=== PATIENT | female | born 1950 | race Caucasian/White ===

== ENCOUNTER 2018-02-05 08:40 | Inpatient (IN) | payer OTHER ==
[~2018-02-05] VITALS: Ht 170.2 cm; Wt 64.0 kg
[~2018-02-05 08:40] MED LIST: CALC-354 PO; CHOL100027 PO; FSMD/70 PO; LEVO75TA25 PO; MULT-839 PO; MULTTAB58 PO; POLYSOL OPB; PRED1SUS3 OPR
[2018-02-05] MEDS ORDERED: SODIUM CHLORIDE 0.9% 1000ML 1,000 ML IV ONE (09:05)
[2018-02-05] MEDS ORDERED: MYCO500T4 PO (09:27)
[2018-02-05] MEDS ORDERED: DOXY100C76 PO (09:27)
[2018-02-05] MEDS ORDERED: BENZ100C84 PO (09:27)
[2018-02-05] MEDS ORDERED: GUAISYP4 PO (09:27)
[2018-02-05] MEDS ORDERED: SODIUM CHLORIDE 0.9% 1000ML 1,000 ML IV STA (09:42)
[2018-02-05] MEDS ORDERED: PIPERACILLIN/TAZOBACTAM 4.5 GM/100ML D5W IV STA (09:43)
[2018-02-05 09:45] LABS: HEMATOCRIT 33.7 % (37-47); HEMOGLOBIN 11.8 g/dL (12.0-16.0); MEAN CELL VOLUME 91.1 fL (80-100); MEAN CORPUSCULAR HEMOGLOBIN 31.9 pg (25-34); MEAN PLATELET VOLUME 10.2 fL (7.4-10.4); PLATELET COUNT 129 K/uL (130-400); RED CELL DISTRIBUTION WIDTH CV 12.7 % (11.5-14.5); RED CELL DISTRIBUTION WIDTH SD 42.5 fL (36.4-46.3); WHITE BLOOD COUNT 5.67 K/uL (4.8-10.8)
[2018-02-05 09:51] LABS: PTT PATIENT 26.4 SECONDS (21.0-31.0)
[2018-02-05 09:55] LABS: INFLUENZA B ANTIGEN Neg for Influ B (NEG)
--- NOTE | 2018-02-05 09:55 | DIAGNOSTIC IMAGING REPORT ---
CHEST ONE VIEW PORTABLE CLINICAL HISTORY: 67 years-old Female presenting with Sepsis, flu like symptoms, SOB, body aches. TECHNIQUE: Portable upright AP view of the chest was obtained. COMPARISON: 04/02/2013 and chest CTA from 2015. FINDINGS: Cardiomediastinal silhouette normal. No focal opacity. No large effusion or pneumothorax. Osseous structures normal. Upper abdomen normal. IMPRESSION: 1. No acute cardiopulmonary disease. Electronically signed by: Enoc Dubose M.D. 02/05/2018 9:54 AM Dictated Date/Time: 02/05/2018 9:52 AM
[2018-02-05 10:06] LABS: IG# 0.02 K/uL (0.00-0.02); LYMPH % 16.2 %; LYMPH ABS # 0.92 K/uL (1.2-3.4); MONO % 6.7 %; MONO ABS # 0.38 K/uL (0.11-0.59); NEUT % 76.7 %; NEUT ABS # 4.35 K/uL (1.4-6.5)
[2018-02-05 10:12] LABS: ALBUMIN 3.4 gm/dl (3.4-5.0); CALCIUM 8.2 mg/dl (8.5-10.1); CREATININE 0.81 mg/dl (0.60-1.20); POTASSIUM 3.1 mmol/L (3.5-5.1)
[2018-02-05 10:14] LABS: TOTAL PROTEIN 8.1 gm/dl (6.4-8.2)
[2018-02-05] MEDS ORDERED: ACETAMINOPHEN 500 MG TAB PO STA (11:16)
[2018-02-05] MEDS ORDERED: POTASSIUM CHLORIDE 10 MEQ TABCR PO STA (11:23)
--- NOTE | 2018-02-05 11:27 | EMERGENCY ROOM VISIT NOTE ---
ED Visit Note First contact with patient: 08:53 I have seen and examined this patient with Pola Loredo and generally agree with the treatment plan as discussed. Problem List Medical Problems: (1) Lupus Status: Chronic Current/Historical Medications Scheduled Alendronate/Cholecalciferol (Fosamax+D 70MG/2800 Iu), 1 TABLET PO WK Benzonatate (Tessalon Perles), 1 CAP PO TID Calcium Carbonate-Cholecalcife (Caltrate 600+D), 1 TAB PO QPM Cholecalciferol (Vitamin D 1000 Unit), 1,000 INTER.UNIT PO QPM Doxycycline Monohydrate (Monodox), 100 MG PO BID Multiple Vitamin (Multivitamin), 1 TAB PO QPM Multiple Vitamins W/ Minerals (Vision Formula/Lutein), 1 TAB PO QPM Mycophenolate Mofetil (Cellcept), 1 TAB PO BID Polyvinyl Alcohol-Povidone (Op (Refresh), 1 DROP OPB QID Scheduled PRN Guaifenesin/Codeine (Robitussin-Ac Syrup), 5 ML PO Q6H PRN for Cough Allergies Coded Allergies: Cyclobenzaprine (Verified Allergy, Mild, red and itchy, 07/25/16) Aspirin (Verified Allergy, Unknown, RASH, 07/25/16) Vital Signs Date Time Temp Pulse Resp B/P (MAP) Pulse Ox O2 Delivery O2 Flow Rate FiO2 02/05/18 11:06 70 16 115/77 100 Room Air 02/05/18 09:40 73 18 117/72 100 Room Air 02/05/18 09:19 96 Room Air 02/05/18 09:18 70 02/05/18 08:47 37.6 89 18 86/60 92 Room Air Laboratory Results 02/05/18 09:24 Red Blood Count 3.70, Mean Corpuscular Volume 91.1, Mean Corpuscular Hemoglobin 31.9, Mean Corpuscular Hemoglobin Concent 35.0, Mean Platelet Volume 10.2, Neutrophils (%) (Auto) 76.7, Lymphocytes (%) (Auto) 16.2, Monocytes (%) (Auto) 6.7, Eosinophils (%) (Auto) 0.0, Basophils (%) (Auto) 0.0, Neutrophils # (Auto) 4.35, Lymphocytes # (Auto) 0.92, Monocytes # (Auto) 0.38, Eosinophils # (Auto) 0.00, Basophils # (Auto) 0.00 02/05/18 09:24 Test 02/05/18 00:00 02/05/18 09:15 02/05/18 09:24 02/05/18 09:30 Urine Color DK YELLOW Urine Appearance CLEAR (CLEAR) Urine pH 6.5 (4.5-7.5) Urine Specific [place] 1.022 (1.000-1.030) Urine Protein 1+ (NEG) Urine Glucose (UA) NEG (NEG) Urine Ketones NEG (NEG) Urine Occult Blood NEG (NEG) Urine Nitrite NEG (NEG) Urine Bilirubin NEG (NEG) Urine Urobilinogen NEG (NEG) Urine Leukocyte Esterase NEG (NEG) Urine WBC (Auto) 1-5 /hpf (0-5) Urine RBC (Auto) 5-10 /hpf (0-4) Urine Hyaline Casts (Auto) 1-5 /lpf (0-5) Urine Epithelial Cells (Auto) 20-30 /lpf (0-5) Urine Bacteria (Auto) NEG (NEG) Influenza Type A Antigen Neg for Influ A (NEG) Influenza Type B Antigen Neg for Influ B (NEG) White Blood Count 5.67 K/uL (4.8-10.8) Red Blood Count 3.70 M/uL (4.2-5.4) Hemoglobin 11.8 g/dL (12.0-16.0) Hematocrit 33.7 % (37-47) Mean Corpuscular Volume 91.1 fL (80-100) Mean Corpuscular Hemoglobin 31.9 pg (25-34) Mean Corpuscular Hemoglobin Concent 35.0 g/dl (32-36) Platelet Count 129 K/uL (130-400) Mean Platelet Volume 10.2 fL (7.4-10.4) Neutrophils (%) (Auto) 76.7 % Lymphocytes (%) (Auto) 16.2 % Monocytes (%) (Auto) 6.7 % Eosinophils (%) (Auto) 0.0 % Basophils (%) (Auto) 0.0 % Neutrophils # (Auto) 4.35 K/uL (1.4-6.5) Lymphocytes # (Auto) 0.92 K/uL (1.2-3.4) Monocytes # (Auto) 0.38 K/uL (0.11-0.59) Eosinophils # (Auto) 0.00 K/uL (0-0.5) Basophils # (Auto) 0.00 K/uL (0-0.2) RDW Standard Deviation 42.5 fL (36.4-46.3) RDW Coefficient of Variation 12.7 % (11.5-14.5) Immature Granulocyte % (Auto) 0.4 % Immature Granulocyte # (Auto) 0.02 K/uL (0.00-0.02) Prothrombin Time 10.7 SECONDS (9.0-12.0) Prothromb Time International Ratio 1.0 (0.9-1.1) Activated Partial Thromboplast Time 26.4 SECONDS (21.0-31.0) Partial Thromboplastin Ratio 1.0 Anion Gap 6.0 mmol/L (3-11) Est Creatinine Clear Calc Drug Dose 65.6 ml/min Estimated GFR () 87.1 Estimated GFR (Non- 75.2 BUN/Creatinine Ratio 12.7 (10-20) Calcium Level 8.2 mg/dl (8.5-10.1) Total Bilirubin 0.7 mg/dl (0.2-1) Aspartate Amino Transf (AST/SGOT) 27 U/L (15-37) Alanine Aminotransferase (ALT/SGPT) 22 U/L (12-78) Alkaline Phosphatase 67 U/L (45-117) Total Protein 8.1 gm/dl (6.4-8.2) Albumin 3.4 gm/dl (3.4-5.0) Globulin 4.7 gm/dl (2.5-4.0) Albumin/Globulin Ratio 0.7 (0.9-2) Bedside Lactic Acid Venous 1.34 mmol/L (0.90-1.70) Test 02/05/18 11:23 Medications Administered Medications (Trade) Dose Ordered Sig/Jaguar Route Start Time Stop Time Status Last Admin Dose Admin Sodium Chloride 1,000 ml @ 999 mls/hr Q1H1M ONCE IV 02/05/18 09:05 02/05/18 10:05 DC 02/05/18 09:39 999 MLS/HR Sodium Chloride 1,000 ml @ 999 mls/hr Q1H1M STAT IV 02/05/18 09:42 02/05/18 10:42 DC 02/05/18 10:32 999 MLS/HR Piperacillin Sod/ Tazobactam Sod (Zosyn Iv) 4.5 gm NOW STAT IV 02/05/18 09:43 02/05/18 09:47 DC 02/05/18 10:32 4.5 GM Acetaminophen (Tylenol Tab) 500 mg NOW STAT PO 02/05/18 11:16 02/05/18 11:18 DC 02/05/18 11:25 500 MG Departure Information Referrals Shoaib Stallings III, M.D. (PCP) Patient Instructions [facility]
[2018-02-05] MEDS ORDERED: ONDANSETRON INJ 2 MG/ML 2 ML VIAL IV PRN (11:45)
[2018-02-05] MEDS ORDERED: ACETAMINOPHEN 325 MG TAB PO PRN (11:45)
[2018-02-05] MEDS: SODIUM CHLORIDE 0.9% 1000ML 1,000 ML IV SCH (11:45)
[2018-02-05] MEDS ORDERED: MULT-160 PO (11:49)
[2018-02-05] MEDS ORDERED: TRAZ50TA35 PO (11:49)
[2018-02-05] MEDS ORDERED: B-CO1CAP3 PO (11:49)
[2018-02-05] MEDS ORDERED: MULT-190 PO (11:49)
[2018-02-05] MEDS ORDERED: BENZONATATE 100MG CAP PO PRN (12:00)
[2018-02-05] MEDS ORDERED: GUAIFENESIN/CODEINE 100MG/10MG 5ML UDC PO PRN (12:00)
[2018-02-05] MEDS ORDERED: PIPERACILL/TAZOBAC CONSULT ACTIVE PRN (12:09)
[2018-02-05] MEDS ORDERED: IV FLUIDS COMPLETED PRN ×2 (12:15→15:15)
[2018-02-05 12:25] VITALS: O2SAT 100; Ht 170.2 cm; Wt 64.0 kg
--- NOTE | 2018-02-05 13:07 | History and Physical ---
History & Physical Date & Time of Service: February 05, 2018 ~ 11:15 Chief Complaint: Upper respiratory symptoms Primary Care Physician: Shoaib Stallings III, M.D. History of Present Illness 67-year-old female who presents the ED with persistent upper respiratory infection symptoms. Patient reports she initially started getting sick on January 26 while she was on a cruise in [place]. Patient started self-medicating with amoxicillin 500 mg 3 times daily. Patient was seen at urgent care in [place] last . She was given a prescription for Tessalon Perles, cough medicine, and inhaler, and also doxycycline. However she was told to not take the doxycycline unless she started to worsen. Patient was seen on Monday at the [facility] weekend clinic. Influenza was suspected and patient was started on Tamiflu however outpatient influenza testing was negative. Patient received a call yesterday to stop the Tamiflu and to start doxycycline. Patient reports she was starting to feel better yesterday however this morning her symptoms started worsen. She reports a persistent cough that has been productive for green sputum. She has been running low-grade fevers. She has felt generally weak and has had generalized body aches. She reports some mild lightheadedness and dizziness with standing but denies any syncopal events. She reports a headache that she describes as a sinus headache. She denies chest pain shortness of breath. She developed diarrhea yesterday. She had vomiting today after severe episode of coughing. She denies of lymph rectum , dark tarry stools, hematemesis, or coffee-ground emesis. She has had a poor appetite however it started to improve yesterday. She denies any urinary symptoms. In the ED, patient has a low-grade fever at 37.6. Initial BP was 86/ 60 which improved with IVF. There is no leukocytosis, lactic acid is normal. Patient was given IV Zosyn. Past Medical/Surgical History Medical Problems: (1) Lupus Status: Chronic (2) Osteoporosis Status: Chronic Surgical Problems: (1) History of appendectomy Status: Chronic (2) Hx of tonsillectomy Status: Chronic Family History FH: CAD (coronary artery disease) FATHER FH: diabetes mellitus MOTHER Social History Smoking Status: Former Smoker Alcohol Use: occasionally Marital Status: Immunizations History of Influenza Vaccine: Yes Influenza Vaccine Date: Jul 10, 2017 History of Tetanus Vaccine?: Yes Tetanus Immunization Date: Jan 05, 2010 History of Pneumococcal: Yes Pneumococcal Date: Dec 11, 2015 Allergies Coded Allergies: Cyclobenzaprine (Verified Allergy, Mild, red and itchy, 07/25/16) Aspirin (Verified Allergy, Unknown, RASH, 07/25/16) Home Medications Scheduled Alendronate/Cholecalciferol (Fosamax+D 70MG/2800 Iu), 1 TABLET PO WK Amoxicillin & Pot Clavulanate (Augmentin 875-125 mg), 1 TAB PO BID B-Complex Vitamins (B Complex), 1 CAP PO DAILY Calcium Carbonate-Cholecalcife (Caltrate 600+D), 1 TAB PO QPM Cholecalciferol (Vitamin D 1000 Unit), 2,000 INTER.UNIT PO QPM Multiple Vitamins W/ Calcium (One-A-Day Womens Formula), 1 TAB PO DAILY Ocuvite Preservision (Ocuvite Preservision), 1 TAB PO DAILY Scheduled PRN Benzonatate (Tessalon Perles), 1 CAP PO TID PRN for Cough Guaifenesin/Codeine (Robitussin-Ac Syrup), 5 ML PO Q6H PRN for Cough Polyvinyl Alcohol-Povidone (Op (Refresh), 1 DROP OPB QID PRN for DRYNESS Trazodone Hcl (Trazodone), 50 MG PO HS PRN for Insomnia Review of Systems ROS per HPI, all other systems reviewed and negative Physical Exam Vital Signs Date Time Temp Pulse Resp B/P (MAP) Pulse Ox O2 Delivery O2 Flow Rate FiO2 02/05/18 12:27 73 02/05/18 12:25 100 Room Air 02/05/18 11:06 70 16 115/77 100 Room Air 02/05/18 09:40 73 18 117/72 100 Room Air 02/05/18 09:19 96 Room Air 02/05/18 09:18 70 02/05/18 08:47 37.6 89 18 86/60 92 Room Air General Appearance: WD/WN, no apparent distress, + pertinent finding (Ill- appearing) Head: normocephalic, atraumatic Eyes: normal inspection, EOMI, sclerae normal ENT: hearing grossly normal, + pertinent finding (Mucous membranes moist) Neck: supple, no JVD, trachea midline Respiratory/Chest: lungs clear, normal breath sounds, no respiratory distress Cardiovascular: regular rate, rhythm, no edema, normal peripheral pulses Abdomen/GI: normal bowel sounds, non tender, soft, no organomegaly Extremities/Musculoskelatal: normal inspection, no calf tenderness, normal capillary refill Neurologic/Psych: no motor/sensory deficits, alert, normal mood/affect, oriented x 3 Skin: normal color, warm/dry Diagnostics Laboratory Results Results Past 24 Hours Test 02/05/18 00:00 02/05/18 09:15 02/05/18 09:24 02/05/18 09:30 Range/Units Urine Color DK YELLOW Urine Appearance CLEAR CLEAR Urine pH 6.5 4.5-7.5 Urine Specific [place] 1.022 1.000-1.030 Urine Protein 1+ NEG Urine Glucose (UA) NEG NEG Urine Ketones NEG NEG Urine Occult Blood NEG NEG Urine Nitrite NEG NEG Urine Bilirubin NEG NEG Urine Urobilinogen NEG NEG Urine Leukocyte Esterase NEG NEG Urine WBC (Auto) 1-5 0-5 /hpf Urine RBC (Auto) 5-10 0-4 /hpf Urine Hyaline Casts (Auto) 1-5 0-5 /lpf Urine Epithelial Cells (Auto) 20-30 0-5 /lpf Urine Bacteria (Auto) NEG NEG Influenza Type A Antigen Neg for Influ A NEG Influenza Type B Antigen Neg for Influ B NEG White Blood Count 5.67 4.8-10.8 K/uL Red Blood Count 3.70 4.2-5.4 M/uL Hemoglobin 11.8 12.0-16.0 g/dL Hematocrit 33.7 37-47 % Mean Corpuscular Volume 91.1 80-100 fL Mean Corpuscular Hemoglobin 31.9 25-34 pg Mean Corpuscular Hemoglobin Concent 35.0 32-36 g/dl Platelet Count 129 130-400 K/uL Mean Platelet Volume 10.2 7.4-10.4 fL Neutrophils (%) (Auto) 76.7 % Lymphocytes (%) (Auto) 16.2 % Monocytes (%) (Auto) 6.7 % Eosinophils (%) (Auto) 0.0 % Basophils (%) (Auto) 0.0 % Neutrophils # (Auto) 4.35 1.4-6.5 K/uL Lymphocytes # (Auto) 0.92 1.2-3.4 K/uL Monocytes # (Auto) 0.38 0.11-0.59 K/uL Eosinophils # (Auto) 0.00 0-0.5 K/uL Basophils # (Auto) 0.00 0-0.2 K/uL RDW Standard Deviation 42.5 36.4-46.3 fL RDW Coefficient of Variation 12.7 11.5-14.5 % Immature Granulocyte % (Auto) 0.4 % Immature Granulocyte # (Auto) 0.02 0.00-0.02 K/uL Prothrombin Time 10.7 9.0-12.0 SECONDS Prothromb Time International Ratio 1.0 0.9-1.1 Activated Partial Thromboplast Time 26.4 21.0-31.0 SECONDS Partial Thromboplastin Ratio 1.0 Sodium Level 134 136-145 mmol/L Potassium Level 3.1 3.5-5.1 mmol/L Chloride Level 104 98-107 mmol/L Carbon Dioxide Level 24 21-32 mmol/L Anion Gap 6.0 3-11 mmol/L Blood Urea Nitrogen 10 7-18 mg/dl Creatinine 0.81 0.60-1.20 mg/dl Est Creatinine Clear Calc Drug Dose 65.6 ml/min Estimated GFR () 87.1 Estimated GFR (Non- 75.2 BUN/Creatinine Ratio 12.7 10-20 Random Glucose 115 70-99 mg/dl Calcium Level 8.2 8.5-10.1 mg/dl Magnesium Level 1.8 1.8-2.4 mg/dl Total Bilirubin 0.7 0.2-1 mg/dl Aspartate Amino Transf (AST/SGOT) 27 15-37 U/L Alanine Aminotransferase (ALT/SGPT) 22 12-78 U/L Alkaline Phosphatase 67 45-117 U/L Total Protein 8.1 6.4-8.2 gm/dl Albumin 3.4 3.4-5.0 gm/dl Globulin 4.7 2.5-4.0 gm/dl Albumin/Globulin Ratio 0.7 0.9-2 Bedside Lactic Acid Venous 1.34 0.90-1.70 mmol/L Microbiology Results 02/05/18 Blood Culture, Received Pending 02/05/18 Blood Culture, Received Pending Diagnostic Radiology CXR IMPRESSION: 1. No acute cardiopulmonary disease. Impression Assessment and Plan UPPER RESPIRATORY INFECTION SYMPTOMS IMMUNOCOMPROMISED STATE -Admit to [facility] -Patient presenting with persistent/worsening URI type symptoms 10 days; as an outpatient patient self medicated with amoxicillin and was placed on doxycycline yesterday -Also was started on Tamiflu 3 days ago, however outpatient influenza testing was negative so therefore it was stopped -In the ED, patient with low-grade fever and hypotension that improved with IVF ; suspect hypotension was due to hypovolemia -WBC 5.6K (patient's baseline WBC is around 2.5K, on CellCept), no tachycardia, lactic acid within normal limits -Chest x-ray clear, urinalysis does not suggest infection -Will check CT sinuses to further evaluate for sinusitis -Possible viral URI, however given patient's duration of symptoms and immunocompromise state will cover with antibiotics -S/P Zosyn in the ED, will continue with for now; check MRSA nasal swab -Blood and sputum cultures -Continue supportive care with IVF and as needed antipyretics -Hold CellCept LUPUS -Holding CellCept as above DVT PROPHYLAXIS -SQ Lovenox DISPOSITION -In my clinical judgment this beneficiary meets acute admission criteria, established by [facility], that includes being hospitalized through two midnights. ATTENDING ADDENDUM: Patient seen and examined care coordinated with Shirley RUSSELL This is a 67-year-old female with history of lupus suppression therapy with CellCept Had recent travel outside, and left upper respiratory symptoms, diarrhea Presented to ER with fever, weakness, increased fatigue Ordered empiric antibiotic with IV Zosyn can be changed to appropriate p.o. antibiotics once cultures are available CT of sinuses ordered: Patient's been complaining of chronic sinus pressure, frontal headache posterior nasal drip Carmen Montenegro MD Advanced Directives Existing Living Will: No Existing Power of Insurance Customer Service Specialist: No Resuscitation Status VTE Prophylaxis Will order VTE Prophylaxis: Yes
--- NOTE | 2018-02-05 13:25 | DIAGNOSTIC IMAGING REPORT ---
SINUSES-MAXILLOFACIAL W/O CLINICAL HISTORY: 67 years-old Female presenting with Sinusitis. TECHNIQUE: Multidetector CT of the sinuses was performed without the use of intravenous contrast. IV contrast: None. A dose lowering technique was used consistent with the principles of ALARA (as low as reasonably achievable). COMPARISON: None. CT DOSE (mGy.cm): The estimated cumulative dose is 452.04 mGy.cm. FINDINGS: Blogs Manager topogram: Unremarkable. Significant mucosal thickening, aerated secretions, an air-fluid levels in all the paranasal sinuses. No osseous erosion or sclerosis. Ostiomeatal units are obstructed. Blaine cells noted bilaterally. No gross bony dehiscence of the carotid siphons or optic canals. Minimal rightward deviation of the bony nasal septum. Mastoid air cells and middle ears clear. Orbits normal. Mild degenerative changes of the upper cervical spine. Limited intracranial evaluation within normal limits. Superficial soft tissues of the face within normal limits. IMPRESSION: 1. Findings consistent with extensive acute sinusitis of the paranasal sinuses. No findings to suggest chronic sinusitis. 2. Blaine cells noted bilaterally. Electronically signed by: Enoc Dubose M.D. 02/05/2018 1:23 PM Dictated Date/Time: 02/05/2018 1:20 PM
[2018-02-05 13:54] VITALS: BP 120/71; PULSE 68; TEMP 37; O2SAT 99
[2018-02-05 14:41] VITALS: BP 111/71; PULSE 65; TEMP 36.7; O2SAT 100
[2018-02-05] MEDS: PIPERACILL/TAZOBAC IV 3.375 GM in D5W 100ML IV SCH ×2 (16:24→23:44)
--- NOTE | 2018-02-05 17:28 | EMERGENCY ROOM VISIT NOTE ---
History First contact with patient: 08:53 Chief Complaint: FLU LIKE SX Stated Complaint: URI History of Present Illness The patient is a 67 year old female who presents to the Emergency Room via private vehicle with complaints of "cough, sinus congestion, body ache, upset stomach". The patient states that she was on a cruise, and on January 26 she began with a cough. She notes that nearly everyone that was around her on a cruise ship had similar symptoms. She then began with a sinus congestion and a headache. She has a history of lupus and has a low white blood cell count at baseline. She is on CellCept. She stopped taking this on Monday. She took amoxicillin and doxycycline. She states that she had a chest x-ray Monday and it was negative. She began doxycycline yesterday. She notes that she has now nauseous. She has had diarrhea and intermittent fever. Review of Systems A complete 10-point Review of Systems was discussed with the patient, with pertinent positives and negatives listed in the History of Present Illness. All remaining Review of Systems questions can be considered negative unless otherwise specified. Past Medical/Surgical History Medical Problems: (1) Lupus (2) Osteoporosis Surgical Problems: (1) History of appendectomy (2) Hx of tonsillectomy Family History FH: CAD (coronary artery disease) FATHER FH: diabetes mellitus MOTHER Social History Smoking Status: Former Smoker Marital Status: Housing Status: lives with family Current/Historical Medications Scheduled Alendronate/Cholecalciferol (Fosamax+D 70MG/2800 Iu), 1 TABLET PO WK B-Complex Vitamins (B Complex), 1 CAP PO DAILY Calcium Carbonate-Cholecalcife (Caltrate 600+D), 1 TAB PO QPM Cholecalciferol (Vitamin D 1000 Unit), 2,000 INTER.UNIT PO QPM Doxycycline Monohydrate (Monodox), 100 MG PO BID Multiple Vitamins W/ Calcium (One-A-Day Womens Formula), 1 TAB PO DAILY Mycophenolate Mofetil (Cellcept), 1 TAB PO BID Ocuvite Preservision (Ocuvite Preservision), 1 TAB PO DAILY Scheduled PRN Benzonatate (Tessalon Perles), 1 CAP PO TID PRN for Cough Guaifenesin/Codeine (Robitussin-Ac Syrup), 5 ML PO Q6H PRN for Cough Polyvinyl Alcohol-Povidone (Op (Refresh), 1 DROP OPB QID PRN for DRYNESS Trazodone Hcl (Trazodone), 50 MG PO HS PRN for Insomnia Physical Exam Vital Signs Date Time Temp Pulse Resp B/P (MAP) Pulse Ox O2 Delivery O2 Flow Rate FiO2 02/05/18 12:27 73 02/05/18 12:25 100 Room Air 02/05/18 11:06 70 16 115/77 100 Room Air 02/05/18 09:40 73 18 117/72 100 Room Air 02/05/18 09:19 96 Room Air 02/05/18 09:18 70 02/05/18 08:47 37.6 89 18 86/60 92 Room Air Physical Exam VITAL SIGNS - Vital signs and nursing notes were reviewed. Hypotensive and borderline febrile. GENERAL -67-year-old female appearing her stated age who is in no acute distress. Communicates well with provider and answers questions appropriately. SKIN - Without rashes. No meningeal or petechial rash. HEAD - NC/AT. EYES - Sclera anicteric. EARS - No deformities of external structures noted on gross examination bilaterally. External auditory canals without discharge or otorrhea. Tympanic membranes pearly lópez without retraction or bulging. No fluid or purulent material visualized behind the TM. Handle of malleus, umbo, cone of light, pars tensa/flaccid all easily visualized. NOSE - Midline and without cyanosis. No epistaxis or purulent drainage noted. MOUTH/OROPHARYNX - Without perioral cyanosis. Buccal mucosa pink and moist and without leukoplakia. Tongue midline with equal elevation of palate bilaterally. No tonsillar hypertrophy, erythema, or exudates noted. Fair dentition noted. NECK - Neck with FROM. Supple to palpation. No lymphadenopathy noted. No nuchal rigidity. LUNGS - Chest wall symmetric without accessory muscle use, intercostals retractions, or central cyanosis. Normal vesicular breath sounds CTA B/L. No wheezes, rales, or rhonchi appreciated. CARDIAC - RRR with S1/S2. No murmur, rubs, or gallops appreciated. EXTREMITIES - +5/5 strength noted in UE/LE bilaterally. NEUROLOGIC - Cranial nerves II through XII grossly intact. Sensory intact to light touch throughout. PSYCH - A&Ox3 and cooperates fully with examiner. Pt is very pleasant and interacts well with examiner. Medical Decision & Procedures ER Provider Diagnostic Interpretation: CHEST ONE VIEW PORTABLE CLINICAL HISTORY: 67 years-old Female presenting with Sepsis, flu like symptoms, SOB, body aches. TECHNIQUE: Portable upright AP view of the chest was obtained. COMPARISON: 04/02/2013 and chest CTA from 2015. FINDINGS: Cardiomediastinal silhouette normal. No focal opacity. No large effusion or pneumothorax. Osseous structures normal. Upper abdomen normal. IMPRESSION: 1. No acute cardiopulmonary disease. Electronically signed by: Enoc Dubose M.D. 02/05/2018 9:54 AM Dictated Date/Time: 02/05/2018 9:52 AM Laboratory Results 02/05/18 09:24 Red Blood Count 3.70, Mean Corpuscular Volume 91.1, Mean Corpuscular Hemoglobin 31.9, Mean Corpuscular Hemoglobin Concent 35.0, Mean Platelet Volume 10.2, Neutrophils (%) (Auto) 76.7, Lymphocytes (%) (Auto) 16.2, Monocytes (%) (Auto) 6.7, Eosinophils (%) (Auto) 0.0, Basophils (%) (Auto) 0.0, Neutrophils # (Auto) 4.35, Lymphocytes # (Auto) 0.92, Monocytes # (Auto) 0.38, Eosinophils # (Auto) 0.00, Basophils # (Auto) 0.00 02/05/18 09:24 Test 02/05/18 00:00 02/05/18 09:15 02/05/18 09:24 02/05/18 09:30 Urine Color DK YELLOW Urine Appearance CLEAR (CLEAR) Urine pH 6.5 (4.5-7.5) Urine Specific [place] 1.022 (1.000-1.030) Urine Protein 1+ (NEG) Urine Glucose (UA) NEG (NEG) Urine Ketones NEG (NEG) Urine Occult Blood NEG (NEG) Urine Nitrite NEG (NEG) Urine Bilirubin NEG (NEG) Urine Urobilinogen NEG (NEG) Urine Leukocyte Esterase NEG (NEG) Urine WBC (Auto) 1-5 /hpf (0-5) Urine RBC (Auto) 5-10 /hpf (0-4) Urine Hyaline Casts (Auto) 1-5 /lpf (0-5) Urine Epithelial Cells (Auto) 20-30 /lpf (0-5) Urine Bacteria (Auto) NEG (NEG) Influenza Type A Antigen Neg for Influ A (NEG) Influenza Type B Antigen Neg for Influ B (NEG) White Blood Count 5.67 K/uL (4.8-10.8) Red Blood Count 3.70 M/uL (4.2-5.4) Hemoglobin 11.8 g/dL (12.0-16.0) Hematocrit 33.7 % (37-47) Mean Corpuscular Volume 91.1 fL (80-100) Mean Corpuscular Hemoglobin 31.9 pg (25-34) Mean Corpuscular Hemoglobin Concent 35.0 g/dl (32-36) Platelet Count 129 K/uL (130-400) Mean Platelet Volume 10.2 fL (7.4-10.4) Neutrophils (%) (Auto) 76.7 % Lymphocytes (%) (Auto) 16.2 % Monocytes (%) (Auto) 6.7 % Eosinophils (%) (Auto) 0.0 % Basophils (%) (Auto) 0.0 % Neutrophils # (Auto) 4.35 K/uL (1.4-6.5) Lymphocytes # (Auto) 0.92 K/uL (1.2-3.4) Monocytes # (Auto) 0.38 K/uL (0.11-0.59) Eosinophils # (Auto) 0.00 K/uL (0-0.5) Basophils # (Auto) 0.00 K/uL (0-0.2) RDW Standard Deviation 42.5 fL (36.4-46.3) RDW Coefficient of Variation 12.7 % (11.5-14.5) Immature Granulocyte % (Auto) 0.4 % Immature Granulocyte # (Auto) 0.02 K/uL (0.00-0.02) Prothrombin Time 10.7 SECONDS (9.0-12.0) Prothromb Time International Ratio 1.0 (0.9-1.1) Activated Partial Thromboplast Time 26.4 SECONDS (21.0-31.0) Partial Thromboplastin Ratio 1.0 Anion Gap 6.0 mmol/L (3-11) Est Creatinine Clear Calc Drug Dose 65.6 ml/min Estimated GFR () 87.1 Estimated GFR (Non- 75.2 BUN/Creatinine Ratio 12.7 (10-20) Calcium Level 8.2 mg/dl (8.5-10.1) Magnesium Level 1.8 mg/dl (1.8-2.4) Total Bilirubin 0.7 mg/dl (0.2-1) Aspartate Amino Transf (AST/SGOT) 27 U/L (15-37) Alanine Aminotransferase (ALT/SGPT) 22 U/L (12-78) Alkaline Phosphatase 67 U/L (45-117) Total Protein 8.1 gm/dl (6.4-8.2) Albumin 3.4 gm/dl (3.4-5.0) Globulin 4.7 gm/dl (2.5-4.0) Albumin/Globulin Ratio 0.7 (0.9-2) Bedside Lactic Acid Venous 1.34 mmol/L (0.90-1.70) Date/Time Source Procedure Growth Status 02/05/18 00:00 Nasal MRSA DNA Surveillance Screen - Final Specimen Negative for MRSA by DNA Probe Complete Medications Administered Medications (Trade) Dose Ordered Sig/Jaguar Route Start Time Stop Time Status Last Admin Dose Admin Sodium Chloride 1,000 ml @ 999 mls/hr Q1H1M ONCE IV 02/05/18 09:05 02/05/18 10:05 DC 02/05/18 09:39 999 MLS/HR Sodium Chloride 1,000 ml @ 999 mls/hr Q1H1M STAT IV 02/05/18 09:42 02/05/18 10:42 DC 02/05/18 10:32 999 MLS/HR Piperacillin Sod/ Tazobactam Sod (Zosyn Iv) 4.5 gm NOW STAT IV 02/05/18 09:43 02/05/18 09:47 DC 02/05/18 10:32 4.5 GM Acetaminophen (Tylenol Tab) 500 mg NOW STAT PO 02/05/18 11:16 02/05/18 11:18 DC 02/05/18 11:25 500 MG Potassium Chloride (Klor-Con M10) 40 meq NOW STAT PO 02/05/18 11:23 02/05/18 11:29 DC 02/05/18 12:24 40 MEQ Sodium Chloride 1,000 ml @ 80 mls/hr [id number] IV 02/05/18 11:45 03/07/18 11:44 02/05/18 11:45 80 MLS/HR Medical Decision Patient was seen and evaluated as above in room B6. Review was performed of nursing notes and vital signs. After obtaining a thorough history and physical examination the above work up was performed. She presents to us today with flulike symptoms. She has borderline febrile, and is hypotensive on arrival. She is not toxic but does appear to be ill. She is considered potentially immunocompromised given her medication and history. Chest x-ray negative. Urine negative. CBC reveals no concerning leukocytosis. There is anemia with hemoglobin of 11.8. Coags negative. Metabolic panel does reveal hypokalemia and hyponatremia as well as hypocalcemia. Lactic is negative. Urine negative for infection and influenza also negative. She was given Zosyn and fluids. Due to her underlying history as well as her presentation do believe that further evaluation and management in the inpatient setting is warranted. I discussed the case with Shirley castañeda, hospitalist. Please refer to for the documentation regarding her stay. Blood pressure found to be low. Medication list reviewed. In the evaluation and treatment of this patient the following differential diagnoses were entertained: Sepsis, sinusitis, meningitis, UTI, pneumonia, influenza, among others. Impression Primary Impression: Upper respiratory infection Additional Impressions: Hypokalemia Anemia Departure Information Dispostion Admitted as an inpatient Condition FAIR Referrals Shoaib Stallings III, M.D. (PCP) Forms HOME CARE DOCUMENTATION FORM, IMPORTANT VISIT INFORMATION Patient Instructions [facility] Problem Qualifiers
[2018-02-05] MEDS ORDERED: KETOROLAC TROMETHAMINE 15 MG/ML VIAL IV. PRN (19:30)
[2018-02-05] MEDS ORDERED: LORAZEPAM 0.5 MG TAB PO PRN (19:30)
[2018-02-05] MEDS ORDERED: TRAZODONE HCL 50 MG TAB PO PRN (19:30)
[2018-02-05] MEDS ORDERED: KETOROLAC TROMETHAMINE 15 MG/ML VIAL IV. ONE (19:45)
[2018-02-05] MEDS ORDERED: CALCIUM 600MG + VIT D 400 IU TAB PO SCH (21:00)
[2018-02-05] MEDS ORDERED: CHOLECALCIFEROL 1000 INTER.UNIT TAB PO SCH (21:00)
[2018-02-05] MEDS ORDERED: ENOXAPARIN 40 MG/0.4 ML SYR SQ SCH (21:00)
[2018-02-05 23:23] VITALS: BP 131/75; PULSE 66; TEMP 36.9; O2SAT 92
[2018-02-06] MEDS: SODIUM CHLORIDE 0.9% 1000ML 1,000 ML IV SCH ×2 (02:18→12:29)
[2018-02-06 06:58] VITALS: BP 152/81; PULSE 69; TEMP 36.5; O2SAT 98
[2018-02-06] MEDS: PIPERACILL/TAZOBAC IV 3.375 GM in D5W 100ML IV SCH (07:47)
[2018-02-06 07:52] LABS: HEMATOCRIT 28.2 % (37-47); HEMOGLOBIN 9.8 g/dL (12.0-16.0); MEAN CELL VOLUME 91.9 fL (80-100); MEAN CORPUSCULAR HEMOGLOBIN 31.9 pg (25-34); MEAN CORPUSCULAR HGB CONC 34.8 g/dl (32-36); MEAN PLATELET VOLUME 10.1 fL (7.4-10.4); PLATELET COUNT 113 K/uL (130-400); RED CELL DISTRIBUTION WIDTH CV 12.9 % (11.5-14.5); RED CELL DISTRIBUTION WIDTH SD 43.5 fL (36.4-46.3); WHITE BLOOD COUNT 2.19 K/uL (4.8-10.8)
[2018-02-06] MEDS ORDERED: VITAMIN B COMPLEX TAB PO SCH (08:00)
[2018-02-06] MEDS ORDERED: MULTIPLE VITAMINS PO SCH (08:00)
[2018-02-06] MEDS ORDERED: CALCIUM PO SCH (08:00)
[2018-02-06] MEDS ORDERED: [UNRECOGNIZED DRUG - OTHER] PO SCH (08:00)
[2018-02-06] MEDS ORDERED: CEROVITE ADV FORMULA TAB PO SCH (08:00)
[2018-02-06 08:28] LABS: CREATININE 0.65 mg/dl (0.60-1.20); POTASSIUM 3.6 mmol/L (3.5-5.1)
--- NOTE | 2018-02-06 10:39 | Clinical Documentation Query ---
CLINICAL DOCUMENTATION QUERY Dr. GUIDO, In your clinical opinion is this patient being managed for: ( x ) Acute sinusitis -as documented already ( ) Not Agree ( ) Other explanation of clinical findings (Please Explain. If no explanation given, this would be considered a no response.) ( ) Unable to determine ( ) Need to Discuss (Please call CDS via extension or qliq. If no interaction occurs this is considered a no response.) The medical record reflects the following clinical findings, treatment, and risk factors. Clinical Indicators: 67 yo female presenting with cough, sinus congestion. CT sinuses showed extensive acute sinusitis of the paranasal sinuses. No findings to suggest chronic sinusitis. Treatment: IV fluids, IV zosyn, hold cellcept, MRSA nasal swab, blood and sputum cx Risk Factors: recent community exposure, lupus on chronic cellcept Please clarify and document your clinical opinion in the progress notes and discharge summary. Terms such as "probable", "suspected", "likely", "questionable", "possible", or "still to be ruled out" are acceptable. IF IN AGREEMENT, YOU MUST DOCUMENT ABOVE DIAGNOSTIC STATEMENT IN DAILY PROGRESS NOTES AND DISCHARGE SUMMARY. This document is not part of the patient's record. Thank You, Yolanda Hawley RN [phone]
[2018-02-06 14:28] VITALS: BP 152/81; PULSE 69; TEMP 36.5; O2SAT 98
--- NOTE | 2018-02-06 14:36 | Progress Note ---
Subjective Date of Service: February 06, 2018. Subjective Pt evaluation today including: conversation w/ patient, physical exam, lab review, review of studies, review of inpatient medication list Saw/examined the patient in room 456 She states that she feels fine; and much better than admission Very eager to go home and requesting discharge No shortness of breath Problem List Medical Problems: (1) Anemia Status: Acute (2) Hypokalemia Status: Acute (3) Left leg pain Status: Acute (4) Rib pain on left side Status: Acute (5) Upper respiratory infection Status: Acute Review of Systems Constitutional: No fever, No chills ENT: + nasal symptoms, + problem reported (sinus pressure, headache) Respiratory: + cough, No sputum, No shortness of breath Cardiac: No chest pain Abdomen: No pain, No nausea, No vomiting, No diarrhea Heme: No abnormal bleeding/bruising Medications Current Inpatient Medications Medications (Trade) Dose Ordered Sig/Jaguar Route Start Time Stop Time Status Last Admin Dose Admin Enoxaparin Sodium (Lovenox Inj) 40 mg Q24H SQ 02/05/18 21:00 03/07/18 11:44 Acetaminophen (Tylenol Tab) 650 mg Q4H PRN PO 02/05/18 11:45 03/07/18 11:44 02/06/18 09:40 650 MG Ondansetron HCl (Zofran Inj) 4 mg Q6H PRN IV 02/05/18 11:45 03/07/18 11:44 Sodium Chloride 1,000 ml @ 80 mls/hr [id number] IV 02/05/18 11:45 03/07/18 11:44 02/06/18 12:29 80 MLS/HR Miscellaneous Information (Consult) 1 ea UD PRN N/A 02/05/18 12:09 03/07/18 12:08 Benzonatate (Tessalon Perles Cap) 100 mg TID PRN PO 02/05/18 12:00 03/07/18 11:59 Codeine Phosphate/ Guaifenesin (Robitussin-AC Sugar Free Syrup) 5 ml Q6H PRN PO 02/05/18 12:00 03/07/18 11:59 Miscellaneous (Iv Fluids Completed) 1 ea PRN PRN N/A 02/05/18 12:15 02/05/19 12:14 Piperacillin Sod/ Tazobactam Sod 3.375 gm/Dextrose 115 ml @ 28.75 mls/ hr Q8H IV 02/05/18 16:00 02/12/18 15:59 02/06/18 07:47 28.75 MLS/HR Miscellaneous (Iv Fluids Completed) 1 ea PRN PRN N/A 02/05/18 15:15 02/05/19 15:14 Vitamin B Complex (Vitamin B Complex) 1 tab DAILY PO 02/06/18 08:00 03/08/18 07:59 02/06/18 07:47 1 TAB Cholecalciferol (Vitamin D Tab) 2,000 inter.unit QPM PO 02/05/18 21:00 03/07/18 20:59 Multivitamins/ Minerals (Multivitamin W/ Minerals Tab) 1 tab DAILY PO 02/06/18 08:00 03/08/18 07:59 02/06/18 07:47 1 TAB Trazodone HCl (Desyrel Tab) 50 mg HS PRN PO 02/05/18 19:30 03/07/18 19:29 Calcium/Vitamin D (Caltrate Plus Tab) 1 tab QPM PO 02/05/18 21:00 03/07/18 20:59 Miscellaneous Information (Order Awaiting Action) 1 ea QS N/A 02/06/18 00:00 03/08/18 00:00 Ketorolac Tromethamine (Toradol Inj) 15 mg Q8 PRN IV. 02/05/18 19:30 02/10/18 19:29 Lorazepam (Ativan Tab) 0.5 mg Q8 PRN PO 02/05/18 19:30 03/07/18 19:29 Objective Vital Signs Date Time Temp Pulse Resp B/P (MAP) Pulse Ox O2 Delivery O2 Flow Rate FiO2 02/06/18 08:00 Room Air 02/06/18 06:58 36.5 69 18 152/81 (104) 98 Room Air 02/06/18 00:00 Room Air 02/05/18 23:23 36.9 66 20 131/75 (93) 92 Room Air 02/05/18 16:00 Room Air 02/05/18 14:41 36.7 65 20 111/71 (84) 100 Room Air Physical Exam General Appearance: no apparent distress Respiratory/Chest: lungs clear, normal breath sounds, no respiratory distress, no accessory muscle use Cardiovascular: regular rate, rhythm, no edema, no murmur Extremities: normal inspection, no pedal edema Neurologic/Psychiatric: no motor/sensory deficits, alert, normal mood/affect Laboratory Results Last 24 Hours Test 02/06/18 07:24 White Blood Count 2.19 K/uL Red Blood Count 3.07 M/uL Hemoglobin 9.8 g/dL Hematocrit 28.2 % Mean Corpuscular Volume 91.9 fL Mean Corpuscular Hemoglobin 31.9 pg Mean Corpuscular Hemoglobin Concent 34.8 g/dl RDW Standard Deviation 43.5 fL RDW Coefficient of Variation 12.9 % Platelet Count 113 K/uL Mean Platelet Volume 10.1 fL Sodium Level 141 mmol/L Potassium Level 3.6 mmol/L Chloride Level 110 mmol/L Carbon Dioxide Level 23 mmol/L Anion Gap 7.0 mmol/L Blood Urea Nitrogen 11 mg/dl Creatinine 0.65 mg/dl Est Creatinine Clear Calc Drug Dose 81.7 ml/min Estimated GFR () 106.5 Estimated GFR (Non- 91.9 BUN/Creatinine Ratio 16.9 Random Glucose 85 mg/dl Calcium Level 8.0 mg/dl Assessment and Plan This is a 67 year old female with a past medical history of lupus on long-term immunosuppressants - presents with acute sinusitis Acute Sinusitis - Sinus CT - Findings consistent with extensive acute sinusitis of the paranasal sinuses - doing well with IV Zosyn - feeling fine and improved - plan to d/c on Augmentin - will hold off on Flonase or steroid use due to immunosuppression - hold CellCept; outpatient follow-up with rheumatology, Dr. Cole - outpatient PCP follow-up Lupus - hold CellCept - outpatient rheumatology follow-up DVT ppx - Lovenox FULL CODE
[2018-02-06] MEDS ORDERED: AMOX875T PO (15:32)
--- NOTE | 2018-02-06 15:38 | Discharge Instructions ---
Discharge Instructions Date of Service February 06, 2018. Admission Reason for Admission: URI Discharge Discharge Diagnosis / Problem: Acute Sinus Infection Discharge Goals Goal(s): Decrease discomfort, Improve function, Diagnostic testing, Therapeutic intervention Activity Recommendations Activity Limitations: resume your previous activity . Instructions / Follow-Up Instructions / Follow-Up Please follow-up with Dr. Stallings on February 08 at 1:45PM * Hold CellCept for now, follow-up with Dr. Cole, rheumatology, regarding when to restart this * You will be on Augmentin (antibiotic) twice a day for the next 10 days for the sinus infection * If there is no improvement; primary care can consider Flonase or a steroid nasal spray for sinusitis Current Hospital Diet Patient's current hospital diet: Regular Diet Discharge Diet Recommended Diet: Regular Diet Pending Studies Studies pending at discharge: no Medical Emergencies . Who to Call and When: Medical Emergencies: If at any time you feel your situation is an emergency, please call 911 immediately. . Non-Emergent Contact Non-Emergency issues call your: Primary Care Provider, Specialist (rheumatology ) . . "Provider Documentation" section prepared by Kriss Ornelas. .
--- NOTE | 2018-02-06 15:43 | Discharge Summary ---
Discharge Summary Date of Service February 06, 2018. Discharge Summary Admission Date: February 05, 2018 at 12:45 Discharge Date: February 06, 2018 Discharge Disposition: Home Principal Diagnosis: Acute Sinusitis Lupus, Immunosuppression Medication Reconciliation New Medications: Amoxicillin & Pot Clavulanate (Augmentin 875-125 mg) 1 Tab Tab 1 TAB PO BID for 10 Days, #20 TAB Continued Medications: Alendronate/Cholecalciferol (Fosamax+D 70MG/2800 Iu) 70 Mg Tab 1 TABLET PO WK, TAB B-Complex Vitamins (B Complex) 1 Cap Cap 1 CAP PO DAILY Benzonatate (Tessalon Perles) 100 Mg Cap 1 CAP PO TID PRN for Cough for 10 Days, #30 CAP Calcium Carbonate-Cholecalcife (Caltrate 600+D) 1 Tab Tab 1 TAB PO QPM Cholecalciferol (Vitamin D 1000 Unit) 1,000 Unit Cap 2000 INTER.UNIT PO QPM Guaifenesin/Codeine (Robitussin-Ac Syrup) Syrp 5 ML PO Q6H PRN for Cough for 6 Days, #120 ML Multiple Vitamins W/ Calcium (One-A-Day Womens Formula) 1 Tab Tab 1 TAB PO DAILY Ocuvite Preservision (Ocuvite Preservision) 1 Tab Tab 1 TAB PO DAILY, TAB Polyvinyl Alcohol-Povidone (Op (Refresh) 1 Manjeet Manjeet 1 DROP OPB QID PRN for DRYNESS Trazodone Hcl (Trazodone) 50 Mg Tab 50 MG PO HS PRN for Insomnia, TAB Discontinued Medications: Doxycycline Monohydrate (Monodox) 100 Mg Cap 100 MG PO BID, CAP Mycophenolate Mofetil (Cellcept) 500 Mg Tab 1 TAB PO BID for 90 Days, #180 TAB 3 Refills Admission Information HPI (per Admitting provider): 67-year-old female who presents the ED with persistent upper respiratory infection symptoms. Patient reports she initially started getting sick on January 26 while she was on a cruise in [place]. Patient started self-medicating with amoxicillin 500 mg 3 times daily. Patient was seen at urgent care in [place] last . She was given a prescription for Tessalon Perles, cough medicine, and inhaler, and also doxycycline. However she was told to not take the doxycycline unless she started to worsen. Patient was seen on Monday at the [facility] weekend clinic. Influenza was suspected and patient was started on Tamiflu however outpatient influenza testing was negative. Patient received a call yesterday to stop the Tamiflu and to start doxycycline. Patient reports she was starting to feel better yesterday however this morning her symptoms started worsen. She reports a persistent cough that has been productive for green sputum. She has been running low-grade fevers. She has felt generally weak and has had generalized body aches. She reports some mild lightheadedness and dizziness with standing but denies any syncopal events. She reports a headache that she describes as a sinus headache. She denies chest pain shortness of breath. She developed diarrhea yesterday. She had vomiting today after severe episode of coughing. She denies of lymph rectum , dark tarry stools, hematemesis, or coffee-ground emesis. She has had a poor appetite however it started to improve yesterday. She denies any urinary symptoms. In the ED, patient has a low-grade fever at 37.6. Initial BP was 86/ 60 which improved with IVF. There is no leukocytosis, lactic acid is normal. Patient was given IV Zosyn. Physical Exam (per Admitting): General Appearance: WD/WN, no apparent distress, + pertinent finding (Ill- appearing) Head: normocephalic, atraumatic Eyes: normal inspection, EOMI, sclerae normal ENT: hearing grossly normal, + pertinent finding (Mucous membranes moist) Neck: supple, no JVD, trachea midline Respiratory/Chest: lungs clear, normal breath sounds, no respiratory distress Cardiovascular: regular rate, rhythm, no edema, normal peripheral pulses Abdomen/GI: normal bowel sounds, non tender, soft, no organomegaly Extremities/Musculoskelatal: normal inspection, no calf tenderness, normal capillary refill Neurologic/Psych: no motor/sensory deficits, alert, normal mood/affect, oriented x 3 Skin: normal color, warm/dry Hospital Course This is a 67 year old female with a past medical history of lupus on long-term immunosuppressants - presents with acute sinusitis Acute Sinusitis - Sinus CT - Findings consistent with extensive acute sinusitis of the paranasal sinuses - doing well with IV Zosyn - feeling fine and improved - plan to d/c on Augmentin - will hold off on Flonase or steroid use due to immunosuppression - hold CellCept; outpatient follow-up with rheumatology, Dr. Cole - outpatient PCP follow-up Lupus - hold CellCept - outpatient rheumatology follow-up DVT ppx - Lovenox FULL CODE Total time spent on discharge = 40 minutes This includes examination of the patient, discharge planning, medication reconciliation, and communication with other providers. Discharge Instructions Please follow-up with Dr. Stallings on February 08 at 1:45PM * Hold CellCept for now, follow-up with Dr. Cole, rheumatology, regarding when to restart this * You will be on Augmentin (antibiotic) twice a day for the next 10 days for the sinus infection * If there is no improvement; primary care can consider Flonase or a steroid nasal spray for sinusitis
[2018-02-06 15:58] VITALS: BP 144/79; PULSE 56; TEMP 37; O2SAT 96
== END 2018-02-06 16:25 | disposition home or self-care (01) | DRG 153 ==
LOC: C.EDB 08:42 → ENRESERV 12:07 → C.MS4W 12:45
PROVIDERS: ADMIT Hospitalist; ATTEND Internal Medicine
DX: J01.90 Acute sinusitis, unspecified (principal); M32.9 Systemic lupus erythematosus, unspecified; E87.6 Hypokalemia; D64.9 Anemia, unspecified; Z79.899 Other long term (current) drug therapy; Z88.6 Allergy status to analgesic agent; Z88.8 Allergy status to other drugs, medicaments and biological substances; Z87.891 Personal history of nicotine dependence; Z92.25 Personal history of immunosuppression therapy

== ENCOUNTER 2019-08-31 17:35 | Inpatient (IN) ==
[2019-08-31] MEDS ORDERED: ACETAMINOPHEN 1,000 MG/100 ML VIAL IV STA (18:06)
[2019-08-31] MEDS ORDERED: SODIUM CHLORIDE 0.9% 1000ML 2,000 ML IV ONE (18:06)
[2019-08-31] MEDS ORDERED: PROCHLORPERAZINE 2 ML IV ONE (18:06)
[2019-08-31] MEDS ORDERED: DEXAMETHASONE SOD PHOSPHATE 10 MG in SYRINGE 0 ML IV STA (18:09)
[2019-08-31] MEDS ORDERED: DiphenhydrAMINE HCL 50 MG/ML VIAL IV STA (18:09)
[2019-08-31] MEDS ORDERED: AMPICILLIN/SULBACTAM SOD 3,000 MG in 0.9 % SODIUM CHLORIDE 100 ML IV STA (18:10)
--- NOTE | 2019-08-31 18:24 | XRay Report ---
XR chest 1V portable CLINICAL HISTORY: Sepsis dyspnea COMPARISON STUDY: 08/24/2019 FINDINGS: Small parenchymal infiltrate left base. Chronic platelike atelectasis left base is unchange d. Lungs otherwise appear clear. The diaphragms are smooth. IMPRESSION: Small parenchymal infiltrate combined with chronic atelectasis left lung base. The above report was generated using voice recognition software. It may contain grammatical, syntax or spelling errors. Electronically signed by: Woo Ziegler M.D. 08/31/2019 6:22 PM
[2019-08-31 18:44] LABS: Hematocrit (blood only) 29.9 % (37-47); Hemoglobin 9.8 g/dL (12.0-16.0); Immature Granulocytes # (auto) 0.05 K/uL (0.00-0.02); Immature Granulocytes % (auto) 0.8 %; Lymphocytes # (auto) 0.26 K/uL (1.2-3.4); Lymphocytes % (auto) 4.3 %; Mean Corpuscular Hemoglobin 30.2 pg (25-34); Mean Corpuscular Hgb Conc 32.8 g/dL (32-36); Mean Corpuscular Volume 92.3 fL (80-100); Mean Platelet Volume 9.1 fL (7.4-10.4); Monocytes # (auto) 0.32 K/uL (0.11-0.59); Monocytes % (auto) 5.3 %; Neutrophils # (auto) 5.38 K/uL (1.4-6.5); Neutrophils % (auto) 89.6 %; Platelet Count 175 K/uL (130-400); RDW Coefficient of Variation 14.2 % (11.5-14.5); Red Blood Count 3.24 M/uL (4.2-5.4); White Blood Count 6.01 K/uL (4.8-10.8)
[2019-08-31] MEDS ORDERED: DEXAMETHASONE **PF** INJ 10 MG/ML VIAL ONE (18:55)
[2019-08-31 18:57] LABS: INR 1.1 (0.9-1.1); Partial Thromboplastin Ratio 1.1; Partial Thromboplastin Time 30.3 Seconds (21.0-31.0)
[2019-08-31 19:00] LABS: Albumin Level 2.8 gm/dl (3.4-5.0); BUN Creatinine Ratio 18.9 (10-20); Calcium 8.4 mg/dl (8.5-10.1); Est GFR (African American) 101.4; Est GFR (Non-African American) 87.5; Magnesium 1.8 mg/dl (1.8-2.4); Potassium 3.4 mmol/L (3.5-5.1)
[2019-08-31 19:13] LABS: Albumin Globulin Ratio 0.6 (0.9-2); Bilirubin,Total 0.8 mg/dl (0.2-1); Globulin 4.7 gm/dl (2.5-4.0); Phosphorus 3.1 mg/dl (2.5-4.9); Thyroid Stimulating Hormone 0.009 uIu/ml (0.300-4.500); Total Protein 7.5 gm/dl (6.4-8.2)
[2019-08-31 19:26] LABS: T4 Free Thyroxine 1.61 ng/dl (0.8-1.6)
[2019-08-31 19:44] LABS: Influenza A virus by PCR Neg for Influ A (Neg); Influenza B virus by PCR Neg for Influ B (Neg)
[2019-08-31] MEDS ORDERED: IOVERSOL 100ml IV PRN (19:50)
--- NOTE | 2019-08-31 19:57 | CT Scan Report ---
CT abd pelvis IV con only CT DOSE: 313.67 mGy.cm HISTORY: Pain. Nausea. abd pain, n/v, lupus TECHNIQUE: Multiaxial CT images of the abdomen and pelvis were performed following the use of intrave nous contrast. A dose lowering technique was utilized adhering to the principles of ALARA. COMPARISON STUDY: None. FINDINGS: Small parenchymal infiltrates left and to a lesser the right base. Mild hepatomegaly with c omponents of fatty infiltration. The kidneys enhance uniformly. No evidence for hydronephrosis. Pancr eas is unremarkable. Mild scattered multifocal regions of edematous wall change of the colon. Minimal reactive ileus. No e vidence for free air or obstruction. No evidence for abscess or collection. Bladder is midline. IMPRESSION: 1. Small bibasilar parenchymal infiltrates. 2. Mild colitis with no evidence for abscess collection or obstructive change. The above report was generated using voice recognition software. It may contain grammatical, syntax or spelling errors. Electronically signed by: Woo Ziegler M.D. 08/31/2019 7:56 PM
[2019-08-31] MEDS: POTASSIUM CHLORIDE / WTR 10 MEQ/100 ML PLCT IV SCH ×2 (20:00→22:55)
[2019-08-31 20:34] LABS: Appearance Urine Clear (Clear); Bilirubin Urine Negative (Negative); Blood Urine Negative (Negative); Color Urine Yellow; Glucose Urine UA Negative (Negative); Ketones Urine Negative (Negative); Leukocyte Esterase Urine Negative (Negative); Nitrite Urine Negative (Negative); Protein Urine Negative (Negative); Specific Gravity Urine 1.014 (1.000-1.030); Urobilinogen Urine Negative (Negative)
[2019-08-31] MEDS ORDERED: HYDROCORTISONE SOD SUCCINATE 100 MG/2 ML VIAL IV SCH (21:56)
[2019-08-31] MEDS ORDERED: ONDANSETRON INJ 2 MG/ML 2 ML VIAL IV PRN (21:56)
[2019-08-31] MEDS ORDERED: PROMETHAZINE HCL 25 MG TAB PO PRN (21:56)
[2019-08-31] MEDS ORDERED: UNASYN~CONSULT PHARMACY PRN (22:08)
[2019-08-31] MEDS ORDERED: HYDROCODONE/ACETAMINOPHEN 10/325 TAB PO PRN (22:10)
[2019-08-31] MEDS: ACETAMINOPHEN 325 MG TAB PO PRN (22:10)
[2019-08-31] MEDS: SODIUM CHLORIDE 0.9% 1000ML 1,000 ML IV SCH (22:10)
[2019-08-31] MEDS ORDERED: PANTOprazole 40 MG TAB PO PRN (22:10)
--- NOTE | 2019-08-31 22:48 | Emergency Department Note ---
Entered by Karin Longoria acting as a scribe for Morris Macdonald MD History of Present Illness General Chief complaint: Illness Stated complaint: NAUSEA, UNSTEADY, DISORIENTED, NO APPETITE Time Seen by Provider: 08/31/19 17:43 Source: patient and family () Mode of arrival: ambulatory Limitations: no limitations History of Present Illness Provider complaint: Flank pain Onset (ago): day(s) (yesterday) Location: abdomen (flank) and left Radiation: flank (right) Pain Consistency: + other (worsening) Quality: + other (pain) Associated symptoms: + cough, + headaches, + loss of appetite, + nausea/vomiting and + other (Additional symptoms: abdominal pain, dry heaves. Denies: sore throat) Treatments prior to arrival: other (Hydrocodone) The patient is a 68 year old female with a history of lupus and listeria who presents to the Emergency Room with complaints of worsening flank pain starting yesterday. The patient reports that she came to the ED a week ago for left flank pain, nausea, anxiety, and dizziness. She recalls being told that her pain was likely musculoskeletal-related. She states that her symptoms largely resolved after this visit, but she notes that her left flank pain returned yesterday and radiated to her right side today. She currently also complains of a headache, some cough, abdominal pain, slight nausea, a loss of appetite, and dry heaves en route to the ED. She denies any sore throat, in addition to any recent tick expo sure. Per , the patient recently finished taking a Z-Bharat for a sinus infection. He mentions that she has been hospitalized for a sinus infection in the past. He also reports that the patient went to her employee benefits director yesterday for a regular check-up and was given Augmentin and Hydrocodone. He notes that her employee benefits director would like to put the patient on Benlysta for her lupus because she has been on Prednisone for a while. He indicates that the patient last took Prednisone last night and did not take it this morning because she did not want to upset her stomach. He states that she did, however, take Hydrocodone for her pain today. Per , the patient has always had aches and pains from her lupus, but they have intensified since she acquired listeria in [place] this past January. Upon returning to the [place], he reports that the patient was hospitalized for 10 days in [place], followed by 5 days here. He states that she has followed up with [facility] since and had an endoscopy and colonoscopy performed. The patient notes that she has not felt great since [facility]. Home Medications Home Medications Medication Instructions Recorded Confirmed Type alendronate [Fosamax] 70 mg PO WK 08/24/19 08/31/19 History levothyroxine [Synthroid] 75 mcg PO QAM 08/24/19 08/31/19 History losartan [Cozaar] 25 mg PO HS 08/24/19 08/31/19 History omeprazole 20 mg PO DAILY PRN 08/24/19 08/31/19 History ondansetron HCl [Zofran] 4 mg PO Q6H PRN 08/24/19 08/31/19 History prednisone 20 mg PO QAM 08/24/19 08/31/19 History promethazine 12.5 mg PO Q6H PRN 08/24/19 08/31/19 History hydrocodone-acetaminophen [Lorcet 1 tab PO Q6H PRN 08/31/19 08/31/19 History (hydrocodone)] mycophenolate mofetil [CellCept] 1,000 mg PO BID 08/31/19 08/31/19 History Allergies Allergy/AdvReac Type Severity Reaction Status Date / Time cyclobenzaprine Allergy Mild red and Verified 08/31/19 18:29 itchy aspirin Allergy Unknown RASH Verified 08/31/19 18:29 Past Med/Surg History Medical History Listeria infection Lupus (Chronic) Surgical History History of appendectomy (Chronic) Social History Preferred Language: Bangladeshi Communication Ability: Effective Air Traffic Control Operator Required: No Beliefs That Will Affect Care: None marital status: Current Living Situation: Spouse current occupational status: retired Feels Safe at Home: Yes Safety Concerns: Feels Safe At This Time Smoking Status: Former smoker Hx Alcohol Use: Yes Hx Substance Use: No Review of Systems See HPI for pertinent positives & negatives. and A total of 10 systems reviewed and were otherwise negative Physical Exam Vital Signs Vital Signs - 24 hr 08/31/19 17:39 08/31/19 17:49 08/31/19 18:00 Temperature 38 C H Temperature Source Oral Pulse Rate 122 H 107 H 105 H Pulse Rate from SpO2 Sensor 107 H 104 H Pulse Rhythm Regular Pulse Strength Normal Respiratory Rate 20 16 18 Respiratory Effort / Characteristics Non-Labored Spontaneous Respiratory Depth Normal Respiratory Pattern Regular Blood Pressure 104/64 Blood Pressure [Right Arm] Blood Pressure Mean 77 Blood Pressure Mean [Right Arm] Blood Pressure Position Sitting Pulse Oximetry 95 95 95 Oxygen Delivery Method Room Air Room Air Sepsis Recent Fever Within 48 Hours Yes Sepsis Action Taken by Nursing No Action Required 08/31/19 20:00 Temperature Temperature Source Pulse Rate Pulse Rate from SpO2 Sensor Pulse Rhythm Pulse Strength Respiratory Rate 16 Respiratory Effort / Characteristics Non-Labored Spontaneous Respiratory Depth Normal Respiratory Pattern Regular Blood Pressure Blood Pressure [Right Arm] 114/65 Blood Pressure Mean Blood Pressure Mean [Right Arm] 81 Blood Pressure Position Pulse Oximetry 96 Oxygen Delivery Method Room Air Sepsis Recent Fever Within 48 Hours Sepsis Action Taken by Nursing GENERAL: Awake, alert, fatigued-appearing, uncomfortable. HENT: Normocephalic, atraumatic. Oropharynx with dry mucous membranes and otherwise unremarkable. EYES: Normal conjunctiva. Sclera non-icteric. EOMI. No nystamgus. PEARRL. NECK: Supple. No nuchal rigidity. FROM. No JVD. RESPIRATORY: CTAB. CARDIAC: Tachycardic rate, normal rhythm. Extremities warm and well perfused. Pulses equal. ABDOMEN: Soft, non-distended. No rebound or guarding. No masses. Mild epigastric discomfort without discrete tenderness. RECTAL: Deferred. MUSCULOSKELETAL: Chest examination reveals no tenderness. The back is symmet rical on inspection without obvious abnormality. There is no CVA tenderness to palpation. No joint edema. LOWER EXTREMITIES: Calves are equal size bilaterally and non-tender. No edema. No discoloration. NEURO: Normal sensorium. No sensory or motor deficits noted. Cerebellar function intact, including finger to nose, alternating palms, heel to greene. 5/5 strength and SILT x4 extremities. SKIN: No rash or jaundice noted. Course Course 1755: The patient was evaluated in room A4B, and a complete history and physical examination were performed. 1927: I checked on the patient and updated her on her results. She was agreeable to admission. 1933: I reviewed the patient's case with Dr. Anguiano- HospitalistLaura. Dr. Anguiano will evaluate the patient for further management. Consultations Consultation #1: I reviewed the patient's case with Dr. Anguiano- HospitalistLaura. Dr. Anguiano will evaluate the patient for further management. Time: 19:34 Administered Medications Acetaminophen (Tylenol) 650 mg PO Q4H PRN PRN Reason: pain/fever Stop: 09/30/19 21:55 Last Admin: 08/31/19 22:10 Dose: 650 mg Documented by: [id number] Sodium Chloride (Nss 1000ml) 1,000 mls @ 125 mls/hr IV .Q8H ROSITA Stop: 09/30/19 21:55 Last Admin: 08/31/19 22:10 Dose: 125 mls/hr Documented by: [id number] Discontinued Medications Dexamethasone Sodium Phosphate (Decadron Pf) Confirm Administered Dose 10 mg .ROUTE .STK-MED ONE Stop: 08/31/19 18:56 Last Admin: 08/31/19 19:12 Dose: 10 mg Documented by: [id number] Diphenhydramine HCl (Benadryl) 25 mg IV NOW STA Stop: 08/31/19 18:10 Last Admin: 08/31/19 18:39 Dose: 25 mg Documented by: [id number] Sodium Chloride (Nss 1000ml) 2,000 mls @ 999 mls/hr IV .Q2H1M ONE Stop: 08/31/19 20:06 Last Admin: 08/31/19 18:40 Dose: 999 mls/hr Documented by: [id number] Prochlorperazine (Compazine) 2 mls @ 1 mls/min IV ONE ONE Stop: 08/31/19 18:07 Last Admin: 08/31/19 18:39 Dose: 1 mls/min Documented by: [id number] Acetaminophen (Ofirmev) 1,000 mg in 100 mls @ 400 mls/hr IV NOW STA Stop: 08/31/19 18:20 Last Infusion: 08/31/19 18:54 Dose: 0 mls/hr Documented by: [id number] Admin: 08/31/19 18:39 Dose: 400 mls/hr Documented by: [id number] Dexamethasone Sodium Phosphate (10 mg/ Syringe) 2.5 mls @ 1 mls/min IV NOW STA Stop: 08/31/19 18:11 Last Admin: 08/31/19 19:13 Dose: Not Given Documented by: [id number] Ampicillin Sodium/Sulbactam Sodium 3,000 mg/ Sodium Chloride 108 mls @ 200 mls/hr IV NOW STA; Protocol Stop: 08/31/19 18:42 Last Infusion: 08/31/19 20:16 Dose: 0 mls/hr Documented by: [id number] Admin: 08/31/19 19:13 Dose: 200 mls/hr Documented by: [id number] Potassium Chloride (K Henry / Wtr) 10 meq in 100 mls @ 100 mls/hr IV Q1H ROSITA Stop: 08/31/19 21:14 Last Admin: 08/31/19 20:00 Dose: 100 mls/hr Documented by: [id number] Ioversol (Optiray 320 100ml) 94 ml IV ONCE PRN PRN Reason: Interaction Checking Stop: 09/04/19 19:49 Last Admin: 08/31/19 19:50 Dose: 94 ml Documented by: [id number] Critical Care Time Critical Care Time: Yes Total Critical Care Time: 35 I have personally spent greater than 35 minutes of critical care time in the direct management of this patient. This includes bedside care, interpretation of diagnostic studies, and testing, discussion with consultants, patient, and family members, and other required patient management activities. This 35 minutes is in excess of all separately billable procedures. Medical Decision Making Differential Diagnosis Differential diagnosis: Etiologies such as viral syndrome, otitis, pharyngitis, pneumonia, influenza, meningitis, urinary tract infection, sepsis, bacteremia, as well as others were entertained. Medical Records Attestation: I reviewed the patient's medical records. I reviewed portions of the patient's old chart on the electronic medical record. She has a history of lupus. The patient was evaluated here 7 days ago for the same symptoms she is presenting with today. During her last visit she complained of nausea, anxiety, dizziness, and "not feeling herself." She had a chest x-ray and head CT without contrast performed, which were both negative. She also had blood cultures performed because she is on chronic Prednisone. The patient's records indicate that she has suffered from balance issues since January. These issues reportedly started after she went to [place] and ate something that caused her to act strangely. She was subsequently diagnosed with listeria. Home Medications Current Medication List: was personally reviewed by me Laboratory Data Attestation: I reviewed the patient's lab results. Result diagrams: 08/31/19 18:32 08/31/19 18:32 Lab Results 08/31/19 08/31/19 08/31/19 Range/Units 18:32 18:32 18:32 WBC 6.01 (4.8-10.8) K/uL RBC 3.24 L (4.2-5.4) M/uL Hgb 9.8 L (12.0-16.0) g/dL Hct 29.9 L (37-47) % MCV 92.3 (80-100) fL MCH 30.2 (25-34) pg MCHC 32.8 (32-36) g/dL RDW Std Deviation 48.0 H (36.4-46.3) fL RDW Coeff of Bonnie 14.2 (11.5-14.5) % Plt Count 175 (130-400) K/uL MPV 9.1 (7.4-10.4) fL Immature Gran % (Auto) 0.8 % Neut % (Auto) 89.6 % Lymph % (Auto) 4.3 % [place] % (Auto) 5.3 % Eos % (Auto) 0.0 % Baso % (Auto) 0.0 % Immature Gran # (Auto) 0.05 H (0.00-0.02) K/uL Neut # (Auto) 5.38 (1.4-6.5) K/uL Lymph # (Auto) 0.26 L (1.2-3.4) K/uL [place] # (Auto) 0.32 (0.11-0.59) K/uL Eos # (Auto) 0.00 (0-0.5) K/uL Baso # (Auto) 0.00 (0-0.2) K/uL PT 11.0 (9.0-12.0) Seconds INR 1.1 (0.9-1.1) APTT 30.3 (21.0-31.0) Seconds PTT Ratio 1.1 Sodium 132 L (136-145) mmol/L Potassium 3.4 L (3.5-5.1) mmol/L Chloride 100 (98-107) mmol/L Carbon Dioxide 24 (21-32) mmol/L Anion Gap 8.0 (3-11) BUN 13 (7-18) mg/dl Creatinine 0.71 (0.6-1.2) mg/dl Est Cr Clr Drug Dosing 71.0 ml/min Est GFR ( Amer) 101.4 Est GFR (Non-Af Amer) 87.5 BUN/Creatinine Ratio 18.9 (10-20) Glucose 107 H (70-99) mg/dl Lactate (0.4-2.0) mmol/L Calcium 8.4 L (8.5-10.1) mg/dl Phosphorus 3.1 (2.5-4.9) mg/dl Magnesium 1.8 (1.8-2.4) mg/dl Total Bilirubin 0.8 (0.2-1) mg/dl AST 23 (15-37) U/L ALT 15 (12-78) U/L Alkaline Phosphatase 65 (45-117) U/L Total Protein 7.5 (6.4-8.2) gm/dl Albumin 2.8 L (3.4-5.0) gm/dl Globulin 4.7 H (2.5-4.0) gm/dl Albumin/Globulin Ratio 0.6 L (0.9-2) TSH 0.009 L (0.300-4.500) uIu/ml Free T4 1.61 H (0.8-1.6) ng/dl Urine Color Urine Appearance (Clear) Urine pH (4.5-7.5) Ur Specific [place] (1.000-1.030) Urine Protein (Negative) Urine Glucose (UA) (Negative) Urine Ketones (Negative) Urine Blood (Negative) Urine Nitrite (Negative) Urine Bilirubin (Negative) Urine Urobilinogen (Negative) Ur Leukocyte Esterase (Negative) Influenza Type A (PCR) (Neg) Influenza Type B (PCR) (Neg) 08/31/19 08/31/19 08/31/19 Range/Units 18:32 18:32 20:11 WBC (4.8-10.8) K/uL RBC (4.2-5.4) M/uL Hgb (12.0-16.0) g/dL Hct (37-47) % MCV (80-100) fL MCH (25-34) pg MCHC (32-36) g/dL RDW Std Deviation (36.4-46.3) fL RDW Coeff of Bonnie (11.5-14.5) % Plt Count (130-400) K/uL MPV (7.4-10.4) fL Immature Gran % (Auto) % Neut % (Auto) % Lymph % (Auto) % [place] % (Auto) % Eos % (Auto) % Baso % (Auto) % Immature Gran # (Auto) (0.00-0.02) K/uL Neut # (Auto) (1.4-6.5) K/uL Lymph # (Auto) (1.2-3.4) K/uL [place] # (Auto) (0.11-0.59) K/uL Eos # (Auto) (0-0.5) K/uL Baso # (Auto) (0-0.2) K/uL PT (9.0-12.0) Seconds INR (0.9-1.1) APTT (21.0-31.0) Seconds PTT Ratio Sodium (136-145) mmol/L Potassium (3.5-5.1) mmol/L Chloride (98-107) mmol/L Carbon Dioxide (21-32) mmol/L Anion Gap (3-11) BUN (7-18) mg/dl Creatinine (0.6-1.2) mg/dl Est Cr Clr Drug Dosing ml/min Est GFR ( Amer) Est GFR (Non-Af Amer) BUN/Creatinine Ratio (10-20) Glucose (70-99) mg/dl Lactate 0.9 (0.4-2.0) mmol/L Calcium (8.5-10.1) mg/dl Phosphorus (2.5-4.9) mg/dl Magnesium (1.8-2.4) mg/dl Total Bilirubin (0.2-1) mg/dl AST (15-37) U/L ALT (12-78) U/L Alkaline Phosphatase (45-117) U/L Total Protein (6.4-8.2) gm/dl Albumin (3.4-5.0) gm/dl Globulin (2.5-4.0) gm/dl Albumin/Globulin Ratio (0.9-2) TSH (0.300-4.500) uIu/ml Free T4 (0.8-1.6) ng/dl Urine Color Yellow Urine Appearance Clear (Clear) Urine pH 7.0 (4.5-7.5) Ur Specific [place] 1.014 (1.000-1.030) Urine Protein Negative (Negative) Urine Glucose (UA) Negative (Negative) Urine Ketones Negative (Negative) Urine Blood Negative (Negative) Urine Nitrite Negative (Negative) Urine Bilirubin Negative (Negative) Urine Urobilinogen Negative (Negative) Ur Leukocyte Esterase Negative (Negative) Influenza Type A (PCR) Neg for Influ A (Neg) Influenza Type B (PCR) Neg for Influ B (Neg) Imaging Data Radiologist's Impression: Radiology results as stated below per my review and the radiologist's interpretation: XR chest 1V portable CLINICAL HISTORY: Sepsis dyspnea COMPARISON STUDY: 08/24/2019 FINDINGS: Small parenchymal infiltrate left base. Chronic platelike atelectasis left base is unchanged. Lungs otherwise appear clear. The diaphragms are smooth. IMPRESSION: Small parenchymal infiltrate combined with chronic atelectasis left lung base. The above report was generated using voice recognition software. It may contain grammatical, syntax or spelling errors. Electronically signed by: Woo Ziegler M.D. 08/31/2019 6:[address] abd pelvis IV con only CT DOSE: 313.67 mGy.cm HISTORY: Pain. Nausea. abd pain, n/v, lupus TECHNIQUE: Multiaxial CT images of the abdomen and pelvis were performed following the use of intravenous contrast. A dose lowering technique was utilized adhering to the principles of ALARA. COMPARISON STUDY: None. FINDINGS: Small parenchymal infiltrates left and to a lesser the right base. Mild hepatomegaly with components of fatty infiltration. The kidneys enhance uniformly. No evidence for hydronephrosis. Pancreas is unremarkable. Mild scattered multifocal regions of edematous wall change of the colon. Minimal reactive ileus. No evidence for free air or obstruction. No evidence for abscess or collection. Bladder is midline. IMPRESSION: 1. Small bibasilar parenchymal infiltrates. 2. Mild colitis with no evidence for abscess collection or obstructive change. The above report was generated using voice recognition software. It may contain grammatical, syntax or spelling errors. Electronically signed by: Woo Ziegler M.D. 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 On arrival the patient is febrile to 38.0 with heart rate in the 120s-130s but vital signs otherwise stable. Patient appears clinically dry. She is neurologically intact. EKG without overt acute ischemia. Chest x-ray demonstrates left basilar infiltrate that is suspicious for pneumonia. The patient's sirs criteria on arrival blood cultures were drawn. And patient was ordered for initial treatment with Unasyn given her employee benefits director had prescribed Augmentin yesterday. WBC within normal limits. H/H9 0.8/29.9 approximate 2 prior values. Platelets within normal limits. Chemistry without acidosis. Lactate within normal limits. Potassium 3.4 and otherwise elect lites and LFTs unremarkable. TSH is 0.009 however with free T4 1.61. UA without evidence of infection. Flu negative. CT the abdomen pelvis was performed and demonstrated findings consistent with colitis without evidence of abscess. Additionally, basilar lung findings further clarified with bibasilar parenchymal infiltrates. She was feeling some improvement after IV fluid hydration, Compazine, APAP, as well as dexamethasone for possible component of adrenal insufficiency. However, given the patient's history of lupus on chronic prednisone with Sirs criteria and infectious source reasonable to admit the patient for further management. The patient is agreeable with this plan. Case was discussed with Dr. Anguiano, [facility] hospitalist, who evaluate the patient for admission. Continuous Cardiac Monitoring: Indication: Dizziness Rhythm: Sinus Tachycardia Rate: 122 Other: 95% RA Impression & Plan Pneumonia, Headache, Lupus, On prednisone therapy, Abdominal pain, Nausea, Shortness of breath, Colitis Discharge Plan Visit Data *Final* Discharge Date/Time: 08/31/19 21:16 Chief Complaint: Illness Stated Complaint: NAUSEA, UNSTEADY, DISORIENTED, NO APPETITE ED Provider: Morris Macdonald Discharge Problem: Pneumonia, Headache, Lupus, On prednisone therapy, Abdominal pain, Nausea, Shortness of breath, Colitis Patient Disposition: Admitted As Inpatient Discharge Instructions Interventions: ED Discharge Assessment Last Done: 08/31/19 21:16 Discharge Problem: Pneumonia Qualifiers: Pneumonia type: due to unspecified organism Laterality: bilateral Lung location: lower lobe of lung Qualified Code(s): J18.9 - Pneumonia, unspecified organism Headache Qualifiers: Headache type: unspecified Headache chronicity pattern: unspecified pattern Intractability: intractable Qualified Code(s): R51 - Headache Abdominal pain Qualifiers: Abdominal location: unspecified location Qualified Code(s): R10.9 - Unspecified abdominal pain The sunniibe's documentation has been prepared under my direction and personally reviewed by me in its entirety. I confirm that the note above accurately reflects all work, treatment, procedures, and medical decision making performed by me.
[2019-08-31] MEDS: LOSARTAN POTASSIUM 25 MG TAB PO SCH (22:55)
--- NOTE | 2019-08-31 23:16 | History and Physical Report ---
DATE OF ADMISSION: 08/31/2019 CHIEF COMPLAINT: Fever, weakness. HISTORY OF PRESENT ILLNESS: This is a 68-year-old female with past medical history significant for Graves' disease, chronic sinusitis, GERD, history of basal cell carcinoma, lichenoid keratosis, osteoporosis, idiopathic peripheral neuropathy, history of tobacco abuse in remission, history of lupus, currently on CellCept which she stops when she is taking antibiotics. The patient was in [place] in January, and when she came back, she was diagnosed with listeria. She was in the hospital in [facility]. She completed a total of 15 days of IV antibiotics, but since then she is not feeling well, she still has aches and pains, nausea, dry heaving. She recently was treated for sinusitis with Z-VEL, now getting better. Her speech and language tutor prescribed Augmentin, but she is not started taking it yet,.But they went to her sons place for Thanksgiving, she was not feeling good when she came home. She was more nauseous and more aches and pains, feeling sick and also had a temp spike today, so she came to the hospital, ER and she had a temperature of 38 and no leukocytosis, but chest x-ray shows left lower lobe infiltrate. She was here also on August 24 with weakness, at that time, imaging studies were unremarkable. She was given a dose of steroids with fluids and she felt better and she was discharged at that time. Currently, she received antibiotics, Unasyn and also a dose of dexamethasone. Currently, resting comfortably and hemodynamically stable. Denies any headache, no earache, no runny nose, no sore throat, no difficulty swallowing. Appetite is not that great. No chest pain, no shortness of breath. Has nausea, but no vomiting, no abdominal pain. Denies any diarrhea or constipation. Last bowel movement was yesterday and no blood in the stools or black stools. Normal bladder movements. No hematuria or burning micturition, no swelling in the legs, no rash. She has some pain in the right side of the chest and chronic pain from her lupus, some days are more, some days are less. ALLERGIES: CYCLOBENZAPRINE, ASPIRIN. PAST MEDICAL HISTORY: As mentioned above. PAST SURGICAL HISTORY: Excision of left breast lesion, colonoscopy, EGDs, Pap screen, appendectomy, tonsillectomy, treatment for tubal . MEDICATIONS: The patient is on hydrocodone/acetaminophen 5/325 mg one tablet every 6 hours p.r.n., Augmentin started yesterday 1 tablet b.i.d., Phenergan 12.5 mg p.o. q. 6 hours p.r.n., prednisone 10 mg p.o. daily, Cozaar 25 mg daily, multivitamins with minerals 1 tablet daily, Fosamax 70 mg p.o. daily, CellCept 1000 mg p.o. b.i.d., calcium plus vitamin D 1 tablet daily, levothyroxine 75 mcg daily, albuterol nebulizers p.r.n. FAMILY HISTORY: Significant for: Father had colon cancer. Mother had diabetes. Father has heart disorder. Mother has heart disorder. Sister had lupus, acoustic neuroma. SOCIAL HISTORY: , quit smoking in 1991. Alcohol, 1 wine at night. No drug use. REVIEW OF SYMPTOMS: As per HPI. Rest of review of systems is negative. PHYSICAL EXAMINATION: GENERAL: The patient is of moderate built, not in acute distress. VITAL SIGNS: Temperature 38, pulse 105, respiratory rate 16, blood pressure 114/65, oxygen 96% room air. HEENT: No pallor, no icterus. Pupils equal, round, reactive to light. NECK: No JVD, no neck masses, no carotid bruits. Oral mucosa dry. CARDIOVASCULAR: S1, S2 heard, regular rate and rhythm, no murmur, no gallop. RESPIRATORY SYSTEM: Normal AP diameter. Mild bibasilar crackles. No wheezing. ABDOMEN: Soft, bowel sounds present, nontender. No distention. CENTRAL NERVOUS SYSTEM: Cranial nerves II-XII grossly nonfocal. EXTREMITIES: No edema, no erythema. LABORATORY DATA: WBC 6.01, hemoglobin 9.8, hematocrit 29.9, platelets 175. PT 11, INR 1.1, APTT 33.3. Sodium 132, potassium 3.4, chloride 100, bicarbonate 24, BUN 13, creatinine 0.7, serum glucose 107, lactate 0.9, calcium 8.4, phosphorus 3.1, magnesium 1.8, total bilirubin 0.8, AST 23, ALT 15, alkaline phosphatase 65. TSH 0.009, free T4 1.61. Urinalysis negative. Influenza A and B PCR negative. IMAGING DATA: Chest x-ray: Small parenchymal infiltrate with chronic atelectasis, left lung base. CT of the abdomen and pelvis with IV contrast only shows small bibasilar parenchymal infiltrates, mild colitis with no evidence of abscess collection or obstructive change. ASSESSMENT AND PLAN: This is a 68-year-old female who presents with generalized weakness, illness, acute on chronic pains and also fever at home. 1. Fever. Chest x-ray shows left lower lobe infiltrate, possible pneumonia, but the patient does not have any cough or shortness of breath. The patient recently had Z-VEL, so we will empirically start on IV Unasyn. Follow the cultures. Follow the response. 2. Generalized weakness and chronic pain, history of lupus and since she was diagnosed with listeria in January of this year, she is constantly having nausea and feeling sick. We will hydrate with IV fluids and we will follow the cultures. If any concern, we will get ID consult. The patient is on immunosuppression with CellCept. 3. Mild colitis on CAT scan. When she was diagnosed with listeria in January, she also was diagnosed C. diff. The patient currently had no diarrhea, but she was recently on antibiotic courses. We will check the stool for C. diff. We will put her on probiotics and consult GI for further recommendations. 4. Hypothyroidism. TSH is low, but free T4 is normal. Recently, had thyroid dose reduced continue current dose and follow with PCP. 5. Hypertension. Continue losartan with holding parameters. 6. History of lupus. CellCept is held for infection, on prednisone 10 mg daily currently. Will place her on stress dose hydrocortisone and taper back to her home dose as soon as possible. 7. Deep venous thrombosis prophylaxis, sequential compression devices for now. 8. Disposition: Admit to medical floor. Expect discharge home and follow with family doctor. PT and OT prior to discharge. Social Service to help with discharge planning. Code status: Full code. MTDD
[2019-09-01] MEDS: AMPICILLIN/SULBACTAM SOD 3,000 MG in 0.9 % SODIUM CHLORIDE 100 ML IV SCH ×4 (01:26→20:14)
[2019-09-01] MEDS: HYDROCORTISONE SOD 50 MG in SYRINGE 0 ML IV SCH ×4 (01:27→20:14)
[2019-09-01] MEDS: LEVOTHYROXINE SODIUM 75 MCG TABLET PO SCH (05:21)
[2019-09-01] MEDS: SODIUM CHLORIDE 0.9% 1000ML 1,000 ML IV SCH ×3 (05:21→22:19)
[2019-09-01 05:34] LABS: Hematocrit (blood only) 30.7 % (37-47); Hemoglobin 9.8 g/dL (12.0-16.0); Immature Granulocytes # (auto) 0.05 K/uL (0.00-0.02); Immature Granulocytes % (auto) 1.9 %; Lymphocytes # (auto) 0.24 K/uL (1.2-3.4); Lymphocytes % (auto) 9.3 %; Mean Corpuscular Hemoglobin 29.6 pg (25-34); Mean Corpuscular Hgb Conc 31.9 g/dL (32-36); Mean Corpuscular Volume 92.7 fL (80-100); Mean Platelet Volume 9.9 fL (7.4-10.4); Monocytes # (auto) 0.12 K/uL (0.11-0.59); Monocytes % (auto) 4.6 %; Neutrophils # (auto) 2.18 K/uL (1.4-6.5); Neutrophils % (auto) 84.2 %; Platelet Count 146 K/uL (130-400); RDW Coefficient of Variation 14.4 % (11.5-14.5); RDW Standard Deviation 48.4 fL (36.4-46.3); Red Blood Count 3.31 M/uL (4.2-5.4); White Blood Count 2.59 K/uL (4.8-10.8)
[2019-09-01 06:11] LABS: BUN Creatinine Ratio 22.2 (10-20); Blood Urea Nitrogen 14 mg/dl (7-18); Calcium 8.2 mg/dl (8.5-10.1); Carbon Dioxide 22 mmol/L (21-32); Chloride 112 mmol/L (98-107); Creatinine Clr Calc Pharmacy 81.3 ml/min; Est GFR (African American) 107.4; Est GFR (Non-African American) 92.7; Glucose 159 mg/dl (70-99); Magnesium 2.2 mg/dl (1.8-2.4); Potassium 4.4 mmol/L (3.5-5.1); Sodium 140 mmol/L (136-145)
[2019-09-01 06:14] LABS: Thyroid Stimulating Hormone < 0.005 uIu/ml (0.300-4.500)
[2019-09-01] MEDS: LACTOBACILLUS ACIDOPHILUS (FLORANEX) TAB PO SCH ×3 (09:13→17:55)
[2019-09-01] MEDS ORDERED: AMPICILLIN/SULBACTAM CONSULT ACTIVE PRN (10:00)
--- NOTE | 2019-09-01 12:21 | Gastrointestinal Consultation ---
Date of Consultation September 01, 2019 Assessment & Plan (1) Colitis: likely infectious given hx cdiff Recs: supportive care, IVFs check stool culture, cdiff, fecal calprotectin diet as tolerated will likely need repeat colonoscopy as an outpatient in 6 weeks to evaluate after acute episode has resolved Thank you for allowing me to participate in the care of this patient. History of Present Illness Attending Physician: Maci Arora MD 68 yo female here with possible pneumonia. GI consulted for colitis on CT. She notes right sided abdominal pains that started yesterday, also notes hx cdiff and listeria infections in the past. Denies diarrhea, n/v, fevers, chills, constipation. No other significant GI symptoms at this time. CT A/P shows mild colitis. Labs show mild anemia hgb 9.8, CT as above, no recent EGD. She had a colonoscopy previously that appears to have been unremarkable. Allergies Allergy/AdvReac Type Severity Reaction Status Date / Time cyclobenzaprine Allergy Mild red and Verified 08/31/19 18:29 itchy aspirin Allergy Unknown RASH Verified 08/31/19 18:29 Home Medications Home Medications Medication Instructions Recorded Confirmed Type alendronate [Fosamax] 70 mg PO WK 08/24/19 08/31/19 History levothyroxine [Synthroid] 75 mcg PO QAM 08/24/19 08/31/19 History losartan [Cozaar] 25 mg PO HS 08/24/19 08/31/19 History omeprazole 20 mg PO DAILY PRN 08/24/19 08/31/19 History ondansetron HCl [Zofran] 4 mg PO Q6H PRN 08/24/19 08/31/19 History prednisone 20 mg PO QAM 08/24/19 08/31/19 History promethazine 12.5 mg PO Q6H PRN 08/24/19 08/31/19 History hydrocodone-acetaminophen [Lorcet 1 tab PO Q6H PRN 08/31/19 08/31/19 History (hydrocodone)] mycophenolate mofetil [CellCept] 1,000 mg PO BID 08/31/19 08/31/19 History Patient History Medical History Listeria infection Lupus (Chronic) Surgical History History of appendectomy (Chronic) Social History Preferred Language: [place] Citizen Communication Ability: Effective Soldering Machine Setter Required: No Beliefs That Will Affect Care: None marital status: Current Living Situation: Spouse current occupational status: retired Feels Safe at Home: Yes Safety Concerns: Feels Safe At This Time Smoking Status: Former smoker Hx Alcohol Use: Yes Hx Substance Use: No Review of Systems Constitutional: no fever, no chills and no weight loss Eyes: as per Subjective / HPI Ear, Nose, Mouth, Throat: as per Subjective / HPI Respiratory: no dyspnea and no dyspnea on exertion Cardiovascular: no chest pain and no palpitations Gastrointestinal: as per Subjective / HPI Musculoskeletal: no joint pain and no swelling Integumentary: no rash and no lesions Neurologic: no numbness and no paresthesia Psychiatric: no depression and no anxiety Endocrine: no fatigue Hematologic / Lymphatic: no easy bleeding and no easy bruising Physical Exam Constitutional: WD/WN, vitals as above Eyes: EOM intact bilaterally Neck: normal visual inspection Respiratory: normal respiratory effort, lungs clear to auscultation Cardiovascular: RRR, no murmur, no edema Gastrointestinal (Abdomen): Inspection/Auscultation: abdomen normal to inspection; abdomen not distended Percussion/Palpation: abdomen soft; abdomen nontender and no hepatosplenomegaly Musculoskeletal: Extremities: no cyanosis Gait: normal gait Skin: no rashes, warm and dry Neurologic: moves all extremities Psychiatric: A+Ox3, euthymic affect Results & Data Vital Signs (Past 12 Hours) Vital Signs Temp Pulse Resp BP Pulse Ox 09/01/19 07:29 36.4 C L 63 16 121/67 97 PG Care Time/CCT Total # of Minutes Spent Total Time Spent with Patient: Total time spent is greater than 50% in coordination of care (as documented) at patient's floor/unit and/or counseling patient:
--- NOTE | 2019-09-01 14:06 | Hospitalist Progress Note ---
Date of Service September 01, 2019 Assessment & Plan (1) Fever: (2) Hypothyroidism: (3) Hypertension: (4) Lupus: (5) Nausea: Had fever Recent sinusitis. Has been on antibiotic Right sided chest wall pain, reported to pleuritic and some tenderness. CXR and Abd CT showed bibasilar infiltrates. Abd CT also showed mild colitis Likely pneumonia Had been on azithro, augmentin recently Continue unasyn for now Nausea resolved. Advanced to regular diet Will send stool culture if BM Continue home losartan Continue levothyroxine Reports cellcept had been on hold since being treated for recent infection Resume po prednisone home dose Subjective Reports nausea has resolved. No bowel movement yet Still reports right sided pleuritic chest pain. Denied fevers, chills Last fever was in ER at 5pm yesterday Reports feeling better Denied cough, shortness of breath, sick contact Review of Systems Review of Systems: All systems reviewed and unremarkable except for mentioned above. Physical Exam Physical Exam: General: Well nourished, well hydrated, average body habitus, no acute distress Eyes: PERRL, conjunctivae normal, EOM intact bilaterally ENMT: External ear and nose normal, oropharynx normal Neck: Normal visual inspection, no tracheal deviation, no swelling noted Respiratory: Normal respiratory effort, no respiratory distress, lungs clear to auscultation, no crackles and no wheezes Cardiovascular: Pulse is RRR. Heart Sounds: normal S1 and normal S2; no murmurs. Vessels: normal peripheral pulses Extremities: no pedal edema Chest (Breasts): Chest: normal inspection of chest , reported mild tenderness on right lower lateral chest wall palpation Gastrointestinal (Abdomen): Abdomen is not distended, soft, non-tender to palpation, no guarding, no palpable hepatosplenomegaly, normal bowel sounds Musculoskeletal: No cyanosis or clubbing, all extremities motor strength 5/5 Genitourinary: No CVA tenderness Skin: No rash noted on gross inspection, No ulcers noted Neurologic: Alert and oriented x 3, No focal weakness, sensation grossly intact Psychiatric: Alert and oriented x 3, euthymic affect, no depressed affect Lymphatic: No cervical and axillary lymphadenopathy Results & Data Vital Signs (Past 12 Hours) Vital Signs Temp Pulse Resp BP Pulse Ox 09/01/19 07:29 36.4 C L 63 16 121/67 97 Laboratory Results Abnormal lab results 08/31/19 08/31/1909/01/19 Range/Units 18:32 18:32 05:04 WBC 2.59 L (4.8-10.8) K/uL RBC 3.24 L 3.31 L (4.2-5.4) M/uL Hgb 9.8 L 9.8 L (12.0-16.0) g/dL Hct 29.9 L 30.7 L (37-47) % MCHC 31.9 L (32-36) g/dL RDW Std Deviation 48.0 H 48.4 H (36.4-46.3) fL Immature Gran # (Auto) 0.05 H 0.05 H (0.00-0.02) K/uL Lymph # (Auto) 0.26 L 0.24 L (1.2-3.4) K/uL Sodium 132 L (136-145) mmol/L Potassium 3.4 L (3.5-5.1) mmol/L Chloride (98-107) mmol/L BUN/Creatinine Ratio (10-20) Glucose 107 H (70-99) mg/dl Calcium 8.4 L (8.5-10.1) mg/dl Albumin 2.8 L (3.4-5.0) gm/dl Globulin 4.7 H (2.5-4.0) gm/dl Albumin/Globulin Ratio 0.6 L (0.9-2) TSH 0.009 L (0.300-4.500) uIu/ml Free T4 1.61 H (0.8-1.6) ng/dl 09/01/19 Range/Units 05:04 WBC (4.8-10.8) K/uL RBC (4.2-5.4) M/uL Hgb (12.0-16.0) g/dL Hct (37-47) % MCHC (32-36) g/dL RDW Std Deviation (36.4-46.3) fL Immature Gran # (Auto) (0.00-0.02) K/uL Lymph # (Auto) (1.2-3.4) K/uL Sodium (136-145) mmol/L Potassium (3.5-5.1) mmol/L Chloride 112 H (98-107) mmol/L BUN/Creatinine Ratio 22.2 H (10-20) Glucose 159 H (70-99) mg/dl Calcium 8.2 L (8.5-10.1) mg/dl Albumin (3.4-5.0) gm/dl Globulin (2.5-4.0) gm/dl Albumin/Globulin Ratio (0.9-2) TSH < 0.005 L (0.300-4.500) uIu/ml Free T4 (0.8-1.6) ng/dl
[2019-09-01] MEDS: LOSARTAN POTASSIUM 25 MG TAB PO SCH (20:15)
[2019-09-01] MEDS: ACETAMINOPHEN 325 MG TAB PO PRN (22:19)
[2019-09-02] MEDS: AMPICILLIN/SULBACTAM SOD 3,000 MG in 0.9 % SODIUM CHLORIDE 100 ML IV SCH ×3 (02:22→13:28)
[2019-09-02] MEDS: ACETAMINOPHEN 325 MG TAB PO PRN (04:55)
[2019-09-02] MEDS: LEVOTHYROXINE SODIUM 75 MCG TABLET PO SCH (05:03)
[2019-09-02] MEDS: SODIUM CHLORIDE 0.9% 1000ML 1,000 ML IV SCH ×2 (05:03→12:20)
[2019-09-02 05:24] LABS: Hemoglobin 9.2 g/dL (12.0-16.0); Mean Corpuscular Hemoglobin 29.6 pg (25-34); Mean Corpuscular Hgb Conc 31.7 g/dL (32-36); Mean Corpuscular Volume 93.2 fL (80-100); Mean Platelet Volume 9.8 fL (7.4-10.4); Platelet Count 155 K/uL (130-400); RDW Coefficient of Variation 14.4 % (11.5-14.5); RDW Standard Deviation 48.8 fL (36.4-46.3); Red Blood Count 3.11 M/uL (4.2-5.4); White Blood Count 4.06 K/uL (4.8-10.8)
[2019-09-02 05:51] LABS: BUN Creatinine Ratio 15.5 (10-20); Calcium 7.7 mg/dl (8.5-10.1); Creatinine Clr Calc Pharmacy 74.1 ml/min; Est GFR (African American) 104.2; Est GFR (Non-African American) 89.9; Potassium 3.2 mmol/L (3.5-5.1)
[2019-09-02] MEDS ORDERED: predniSONE 20 MG TAB PO SCH (09:00)
[2019-09-02] MEDS ORDERED: POTASSIUM CHLORIDE 20 MEQ TABCR PO STA (09:19)
[2019-09-02] MEDS: LACTOBACILLUS ACIDOPHILUS (FLORANEX) TAB PO SCH ×3 (09:29→17:37)
--- NOTE | 2019-09-02 10:42 | Gastroenterology Progress Note ---
Date of Service September 02, 2019 Assessment & Plan (1) Colitis: Pt is a 68 y/o female admitted for abd pain, on CT abd/pelvis noted to have mild colitis + ileus. She has hx of Cdiff and Listeria. Cdiff currently negative, stool cx pending. She is feeling much better, stools are soft brown. Last EGD/Colonsocpy 04/2019 - gastritis, normal colonosocopy - F/U stool cx - No contraindication for DC home from GI standpoint - May benefit from repeat colonscopy in 4-6 week's time - Gi to sign off; pls recall prn Supervising Physician Co-Signing Physician Notes I have seen and examined the patient and discussed the management with PEPE Manrique. PE - well nourished fm in nad, HEENT - perrla, no scleral icterus, CV- rr no mrg, Pulm- ctab, Abd - soft nt nd +bs, Ext- no sharath no ct Labs reviewed Imaging reviewed Agree with further plan of care as per Carmenza's note. Radha Burt MD Subjective Pt feels much better, not as much abd pain, denies any n/v, tolerating regular food. She is desiring to go home soon Stool this AM soft, brown. Cdiff negative, Stool cx pending Review of Systems Review of Systems: All systems reviewed & are unremarkable except as noted in HPI & below Physical Exam Constitutional: WD/WN, vitals as above well groomed, cooperative and comfortable Eyes: PERRL, conjunctivae normal, anicteric sclerae ENMT: external ear and nose normal, oropharynx normal Respiratory: normal respiratory effort, lungs clear to auscultation Cardiovascular: RRR, no murmur, no edema Gastrointestinal (Abdomen): Percussion/Palpation: + abdomen tender (RUQ) and abdomen soft Skin: no rashes, warm and dry no jaundice Psychiatric: A+Ox3, euthymic affect Lymphatic: no lymphedema Results & Data Vital Signs (Past 12 Hours) Vital Signs Temp Pulse Resp BP Pulse Ox 09/02/19 07:17 36.3 C L 62 16 142/74 H 97 09/01/19 23:00 36.4 C L 70 16 143/75 H 96
[2019-09-02 15:18] VITALS: PULSE 66; TEMP 97.5; O2SAT 98
--- NOTE | 2019-09-02 17:34 | Discharge Summary ---
Date of Service September 02, 2019 Admission HPI Per Admitting Provider This is a 68-year-old female with past medical history significant for Graves' disease, chronic sinusitis, GERD, history of basal cell carcinoma, lichenoid keratosis, osteoporosis, idiopathic peripheral neuropathy, history of tobacco abuse in remission, history of lupus, currently on CellCept which she stops when she is taking antibiotics. The patient was in [facility] [address] in January, and when she came back, she was diagnosed with listeria. She was in the hospital in [facility]. She completed a total of 15 days of IV antibiotics, but since then she is not feeling well, she still has aches and pains, nausea, dry heaving. She recently was treated for sinusitis with Z-VEL, now getting better. Her steel checker prescribed Augmentin, but she is not started taking it yet,.But they went to her sons place for Thanksgiving, she was not feeling good when she came home. She was more nauseous and more aches and pains, feeling sick and also had a temp spike today, so she came to the hospital, ER and she had a temperature of 38 and no leukocytosis, but chest x-ray shows left lower lobe infiltrate. She was here also on August 24 with weakness, at that time, imaging studies were unremarkable. She was given a dose of steroids with fluids and she felt better and she was discharged at that time. Currently, she received antibiotics, Unasyn and also a dose of dexamethasone. Currently, resting comfortably and hemodynamically stable. Denies any headache, no earache, no runny nose, no sore throat, no difficulty swallowing. Appetite is not that great. No chest pain, no shortness of breath. Has nausea, but no vomiting, no abdominal pain. Denies any diarrhea or constipation. Last bowel movement was yesterday and no blood in the stools or black stools. Normal bladder movements. No hematuria or burning micturition, no swelling in the legs, no rash. She has some pain in the right side of the chest and chronic pain from her lupus, some days are more, some days are less. Admission Exam Per Admitting Provider GENERAL: The patient is of moderate built, not in acute distress. VITAL SIGNS: Temperature 38, pulse 105, respiratory rate 16, blood pressure 114/65, oxygen 96% room air. HEENT: No pallor, no icterus. Pupils equal, round, reactive to light. NECK: No JVD, no neck masses, no carotid bruits. Oral mucosa dry. CARDIOVASCULAR: S1, S2 heard, regular rate and rhythm, no murmur, no gallop. RESPIRATORY SYSTEM: Normal AP diameter. Mild bibasilar crackles. No wheezing. ABDOMEN: Soft, bowel sounds present, nontender. No distention. CENTRAL NERVOUS SYSTEM: Cranial nerves II-XII grossly nonfocal. EXTREMITIES: No edema, no erythema. Principal Diagnosis Community Acquired Pneumonia Pleuritic chest pain Discharge Exam General: Well nourished, well hydrated, average body habitus, no acute distress Eyes: PERRL, conjunctivae normal, EOM intact bilaterally ENMT: External ear and nose normal, oropharynx normal Neck: Normal visual inspection, no tracheal deviation, no swelling noted Respiratory: Normal respiratory effort, no respiratory distress, lungs clear to auscultation, no crackles and no wheezes Cardiovascular: Pulse is RRR. Heart Sounds: normal S1 and normal S2; no murm urs. Vessels: normal peripheral pulses Extremities: no pedal edema Gastrointestinal (Abdomen): Abdomen is not distended, soft, non-tender to palpation, no guarding, no palpable hepatosplenomegaly, normal bowel sounds Musculoskeletal: No cyanosis or clubbing, all extremities motor strength 5/5 Genitourinary: No CVA tenderness Skin: No rash noted on gross inspection, No ulcers noted Neurologic: Alert and oriented x 3, No focal weakness, sensation grossly intact Discharge Data Allergies Allergy/AdvReac Type Severity Reaction Status Date / Time cyclobenzaprine Allergy Mild red and Verified 08/31/19 18:29 itchy aspirin Allergy Unknown RASH Verified 08/31/19 18:29 Consultations 08/31/19 19:26 ED Decision to Admit Stat 08/31/19 21:56 Consult Case Management - Discharge Planning Routine 09/01/19 08:00 Consult Gastroenterology Routine Ordered Studies 08/31/19 18:10 CT abd pelvis IV con only Stat 1.Small bibasilar parenchymal infiltrates. 2. Mild colitis with no evidence for abscess collection or obstructive change. Hospital Course (1) Pneumonia: (2) Fever: (3) Hypothyroidism: (4) Hypertension: (5) Lupus: (6) Nausea: Had fever Recent sinusitis. Has been on antibiotic Right sided chest wall pain, reported to pleuritic and some tenderness. CXR and Abd CT showed bibasilar infiltrates. Abd CT also showed mild colitis Likely pneumonia Had been on azithro, augmentin recently Treated in the hospital with unasyn Discharge on levofloxacin for another 2 days to complete therapy Nausea resolved. Chest pain improved Continue home losartan for hypertension Continue levothyroxine for hypothyroidism Reports cellcept had been on hold since being treated for recent infection Resume po prednisone home dose Total Time Total Time Spent Total Time Spent (In Minutes): 25 Total Time Includes: Examination of the Patient, Discharge Planning and Medication Reconciliation Discharge Plan Discharge Items Patient Disposition: Home - Self-Care Reason For Visit: ILLNESS Discharge Diagnosis: Pneumonia Mild colitis Condition on Discharge: Good Activity: Resume your previous activity Non-emergency contact: Primary Care Provider Call non-emergency contact if: you have any medication questions and your symptoms worsen Follow-up/Referrals: Shoaib Stallings MD [Primary Care Provider] - Diet: Heart Healthy Addtl Attending Provider Instructions: Mrs Kumari You came to the hospital complaining of feeling ill, right sided chest pain on deep breaths and nausea. You were evaluated and found to have pneumonia and mild colitis You were treated with antibiotics and iv fluids. Your symptoms resolved. Please complete antibiotic therapy for the pneumonia. Please follow up with your Primary Doctor and Apprenticeship Consultant. It was a pleasure taking care of you. Pending Studies at Discharge: No Stand-Alone Forms: [facility], Smoking Cessation Medications and DC Order Prescriptions: New acetaminophen [Mapap (acetaminophen)] 325 mg Tablet 650 mg PO Q6H PRN (Reason: pain) Qty: 30 RF: 0 levofloxacin 750 mg tablet 750 mg PO DAILY 2 Days Qty: 2 RF: 0 Continued hydrocodone-acetaminophen [Lorcet (hydrocodone)] 5-325 mg tablet 1 tab PO Q6H PRN (Reason: Pain) RF: 0 mycophenolate mofetil [CellCept] 500 mg Tablet 1,000 mg PO BID RF: 0 alendronate [Fosamax] 70 mg Tablet 70 mg PO WK RF: 0 levothyroxine [Synthroid] 75 mcg Tablet 75 mcg PO QAM RF: 0 losartan [Cozaar] 25 mg Tablet 25 mg PO HS RF: 0 omeprazole 20 mg Capsule,Delayed Release(Dr/Ec) 20 mg PO DAILY PRN (Reason: Heartburn) RF: 0 prednisone 20 mg Tablet 20 mg PO QAM RF: 0 promethazine 12.5 mg Tablet 12.5 mg PO Q6H PRN (Reason: nausea/vomiting) RF: 0 ondansetron HCl [Zofran] 4 mg Tablet 4 mg PO Q6H PRN (Reason: nausea/vomiting) RF: 0 Discharge Orders: Discharge Order (Routine); Ordered 09/02/19 Ordered By: Maci Nelson/Other Patient Handouts: Levofloxacin Oral tablet Admission Data Admit Date/Time: 08/31/19 20:30 Attending Provider: Maci Arora I. Admit Provider: Bharat Anguiano Primary Care Provider: Shoaib Stallings Other Providers: Bharat Anguiano ; Bess Leon ; Celina Garcia ; Girish Fontanez ; Siobhan Vega ; Pankaj Montanez ; Nishi Carrillo ; Kimberly Solo ; Adilene Nino ; Junior Rojas ; Bryan Lewis ; Caroline Salgado ; Neeru Tong ; Adilene Rico ; Radha Burt ; Suzie Hartley Other Interventions: Discharge Summary Assessment (RN) Last Done: 09/02/19 18:07 DC Date/Time DO NOT enter until pt leaves facility: 09/02/19 20:02
[2019-09-02 18:11] VITALS: BP 130/73
--- NOTE | 2019-09-09 07:31 | Coding Query ---
CODING QUERY To promote full compliance with coding requirements relating to patient care, provider participation is requested in all cases of keypunch operator uncertainty. Please assist us with the question(s) below: Coding Question(s): Dr. Arora, Please clarify the type of lupus this patient has: ( ) Anticoagulant (LAC) ( ) Discoid (local) ( ) Erythematosus (discoid) (local) ( ) Exedens ( ) Hydralazine ( ) Nephritis (chronic) ( ) Nontuberculous, not disseminated ( ) Panniculitis ( ) Pernio (Besnier) ( x ) Systemic (SLE) ( ) Tuberculous ( ) Vulgaris Physician's Response(s): Per review of Primary Provider's records, patient has systemic lupus erythematosus Thank you for your time, PATRICK Lopez, [employer] SHELBYD
== END 2019-09-02 20:02 | disposition home or self-care (01) | DRG 194 ==
LOC: ED 17:35 → 3N 20:30

== ENCOUNTER 2019-11-15 12:24 | Inpatient (IN) ==
--- OUTSIDE RECORDS SUMMARY | 2019-11-15 12:27 | External Medical Summary | Continuity of Care Document ---
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 Refills: 0 predniSONE 10 MG Oral Tablet; take 1.5 tablets daily , M.D. Start: 07-Jan-2019 Refills: 0 Mucinex DM Maximum Strength 60-1200 MG O ral Tablet Extended Release 12 Hour; TAKE 1 TABLET EVERY 12 HOURS NEEDED. , M.D. Start: 019 Refills: 0 Levothyroxine Sodium 75 MCG Oral Tablet; 75 mcg daily on empty stomach. No food for atleast 30 minutes after. Ishmael Leon Start: 23-Jul-2018 Quantity: 30 Refills: 11 Vision Vitamins Oral Tablet; TAKE 1 TABLET DAILY. , M.DLinwood Start: 23-Jul-2018 Refills: 0 CellCept 500 MG Oral Tablet; TAKE 2 TABLET Twice daily , M.D . Start: 23-Jul-2018 Refills: 0 Multi-Vitamin Daily Oral Tablet; TAKE 1 TABLET DAILY. , M.D. Refills: 0 Vitamin D 1000 UNIT TABS; TAKE 1 TABLET DAILY. , M.D. Refills: 0 Procedures History of Breast Surgery Lumpectomy Sta tus: Completed History of Appendectomy Status: Complete d History of Tonsillectomy Status: Complet ed History of Wrist Surgery Status: Complet ed History of Laparoscopy With Excision Of Ectopic Status: Completed Immunizations Immunizations not documented Family History Father Family history of malignant neoplasm (V16.9) (Z80.9) Status: Active Mother Family history of diabetes mellitus (V18.0) (Z83.3) Status: Active Social History - Smoking Status Former smoker Plan of Treatment Planned Observations Planned Goals not documented Results No Known Results Results not documented Encounters Appointment; Jeannette Leon M.D. 07-Jan-2019 12:50 Encounter Diagnosis: Problem not documented Appointment; Jeannette Leon M.D. 23-Jul-2018 8:30 Encounter Diagnosis: Problem not documented
[2019-11-15] MEDS ORDERED: ONDANSETRON INJ 2 MG/ML 2 ML VIAL IV STA (13:01)
[2019-11-15] MEDS ORDERED: MoRPHine SULFATE 4 MG/ML 1 ML CARP\\VIAL IV STA (13:01)
[2019-11-15] MEDS ORDERED: SODIUM CHLORIDE 0.9% 500 ML IV SCH (13:15)
[2019-11-15 13:17] LABS: Eosinophils # (auto) 0.01 K/uL (0-0.5); Eosinophils % (auto) 0.2 %; Hemoglobin 11.7 g/dL (12.0-16.0); Immature Granulocytes # (auto) 0.04 K/uL (0.00-0.02); Lymphocytes # (auto) 0.39 K/uL (1.2-3.4); Lymphocytes % (auto) 9.5 %; Mean Corpuscular Hemoglobin 29.4 pg (25-34); Mean Corpuscular Hgb Conc 32.5 g/dL (32-36); Mean Corpuscular Volume 90.5 fL (80-100); Mean Platelet Volume 9.7 fL (7.4-10.4); Monocytes # (auto) 0.28 K/uL (0.11-0.59); Monocytes % (auto) 6.8 %; Neutrophils % (auto) 82.5 %; Platelet Count 163 K/uL (130-400); RDW Coefficient of Variation 14.1 % (11.5-14.5); RDW Standard Deviation 46.8 fL (36.4-46.3); Red Blood Count 3.98 M/uL (4.2-5.4); White Blood Count 4.12 K/uL (4.8-10.8)
[2019-11-15 13:30] LABS: Prothrombin Time 10.3 Seconds (9.0-12.0)
--- NOTE | 2019-11-15 13:32 | CT Scan Report ---
CT head/brain wo con CLINICAL HISTORY: 69 years-old Female presenting with dizzy eval for stroke. TECHNIQUE: Multidetector CT imaging of the head was performed without the use of intravenous contrast . IV contrast: None. One or more dose lowering techniques were used consistent with the principles of ALARA (as low as reasonably achievable), including automatic exposure control, mA or kV adjustment t o individual patient size, and/or use of iterative reconstruction. COMPARISON: 08/24/2019. CT DOSE (mGy.cm): The estimated cumulative dose is 537.48 mGy.cm. FINDINGS: Bathhouse Keeper topogram: Unremarkable. Ventricles and sulci normal in size. No hemorrhage. Brain parenchyma normal in appearance with preser cristiane lópez-white differentiation. No acute territorial infarct. No mass effect or midline shift. No ext ra-axial fluid collection. Paranasal sinuses and mastoid air cells clear. Calvarium intact. IMPRESSION: 1. No acute intracranial abnormality. ACT 112: Negative or not required by law. Electronically signed by: Enoc Dubose M.D. 11/15/2019 1:30 PM
[2019-11-15 13:33] LABS: Albumin Level 3.4 gm/dl (3.4-5.0); BUN Creatinine Ratio 20.8 (10-20); Calcium 9.3 mg/dl (8.5-10.1); Creatinine Clr Calc Pharmacy 75.6 ml/min; Est GFR (African American) 103.9; Est GFR (Non-African American) 89.7; Potassium 3.9 mmol/L (3.5-5.1)
[2019-11-15 13:36] LABS: Albumin Globulin Ratio 0.7 (0.9-2); Bilirubin,Total 0.5 mg/dl (0.2-1); Globulin 4.7 gm/dl (2.5-4.0); Total Protein 8.1 gm/dl (6.4-8.2)
[2019-11-15 13:39] LABS: Lipase 251 U/L (73-393); Troponin I < 0.015 ng/ml (0-0.045)
--- NOTE | 2019-11-15 14:15 | Ultrasound Report ---
US gallbladder CLINICAL HISTORY: 69 years-old Female presenting with RUQ pain eval for cholecystitis. TECHNIQUE: Real-time grayscale and limited color Doppler ultrasound imaging of the abdomen limited to the right upper quadrant was performed. COMPARISON: CT from 08/31/2019. FINDINGS: Pancreas: Visualized portions of the pancreatic head and body normal. Liver: Normal echogenicity and echotexture. The liver measures 15.7 cm in maximal sagittal dimension. No sonographic evidence of hepatic mass. Main portal vein patent with normal directional flow. Biliary: No intrahepatic biliary ductal dilatation. Common bile duct measures up to 4 mm in diameter. Gallbladder: Gallbladder sludge. Top normal wall thickness, measuring 3 mm. Physiologic gallbladder d istention. No evidence of gallstones or pericholecystic fluid or inflammatory change. Unable to asses s sonographic Caputo's sign. Right kidney: Normal in appearance without evidence of hydronephrosis. Ascites: None. Other: None. IMPRESSION: Gallbladder sludge. No cholelithiasis or biliary ductal dilatation. Findings not overly convincing fo r cholecystitis. ACT 112: Negative or not required by law. Electronically signed by: Enoc Dubose M.D. 11/15/2019 2:14 PM
[2019-11-15] MEDS ORDERED: MECLIZINE HCL 25 MG TAB PO STA (14:28)
--- NOTE | 2019-11-15 14:28 | Emergency Department Note ---
Entered by Tamia Zhang acting as a scribe for Edward Robles MD History of Present Illness General Chief complaint: Back Injury/Pain Time Seen by Provider: 11/15/19 12:46 Source: patient and family () History of Present Illness Onset (ago): month(s) 3 Location: abdomen (mid) Radiation: back and flank (right) Pain Consistency: + intermittent Maximum Pain Intensity: 5 Current Pain Intensity: 4 (while laying flat) Quality: + sharp Relieved By: + rest Exacerbated By: + movement Associated symptoms: + denies other symptoms (melena, hematochezia, urinary sx, unilateral numbness/weakness), + nausea/vomiting and + other (ongoing pain under left breast since January 2019 (worse with movement, sneezing, coughing), dizziness (episode this morning after waking up) followed by dry heaves, loss of balance when ambulating, intermittent diarrhea x3 days) The patient is a 69 year old female with a history of colitis, appendectomy, pneumonia, lupus, hypothyroidism, and HTN who presents to the Emergency Room with complaints of abdominal pain. The patient states that for the past 3 months she has been experiencing intermittent mid abdominal pain that radiates to her right flank and back. The patient describes her pain as sharp and a 4/10 in severity when laying flat but exacerbated with movement. She was seen in the ED during onset of her symptoms and diagnosed with colitis, however her symptoms have persisted and worsened since this time. She states that the worst flare up of her pain occurred 2 days ago. The patient was seen by her PCP at this time and received a sonogram and x-ray of her abdomen. She was referred to Dr. Chairez, General Surgery for gallstones. Today, her pain worsened and was now associated with vomiting which prompted her ED visit. The patient also complains of an ongoing pain under her left breast since January 2019 which is worse with movement including sneezing and coughing. Additionally, she includes that she experienced an episode of dizziness while sitting down this morning shortly after waking up which was followed by dry heaves. Her dizziness is currently still persistent when she turns her head and she states that she loses her balance when ambulating. The patient has also been experiencing intermittent episodes of diarrhea for the last 3 days despite low PO intake and no PO today. Of note, the patient dos not have a history of shingles and she is unsure if she has a fever. She denies melena, hematochezia, urinary symptoms, and unilateral numbness/weakness. The patient offers no further concerns at this time. Home Medications Home Medications Medication Instructions Recorded Confirmed Type levothyroxine [Synthroid] 75 mcg PO QAM 08/24/19 11/15/19 History losartan [Cozaar] 25 mg PO HS 08/24/19 11/15/19 History omeprazole 20 mg PO DAILY PRN 08/24/19 11/15/19 History ondansetron HCl [Zofran] 4 mg PO Q6H PRN 08/24/19 11/15/19 History promethazine 12.5 mg PO Q6H PRN 08/24/19 11/15/19 History hydrocodone-acetaminophen [Lorcet 1 tab PO Q6H PRN 08/31/19 11/15/19 History (hydrocodone)] mycophenolate mofetil [CellCept] 1,000 mg PO BID 08/31/19 11/15/19 History acetaminophen [Mapap 650 mg PO Q6H PRN #30 tab 09/02/19 11/15/19 Rx (acetaminophen)] dicyclomine 20 mg PO BID PRN 11/15/19 11/15/19 History potassium chloride 10 meq PO HS 11/15/19 11/15/19 History prednisone 5 mg PO DAILY 11/15/19 11/15/19 History Allergies Allergy/AdvReac Type Severity Reaction Status Date / Time cyclobenzaprine Allergy Mild red and Verified 11/15/19 13:38 itchy aspirin Allergy Unknown RASH Verified 11/15/19 13:38 Past Med/Surg History Medical History GERD (gastroesophageal reflux disease) Graves disease Hypertension 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) Lupus (Acute) Neuropathy Surgical History H/O unilateral salpingectomy right side for tubal History of appendectomy (Chronic) Hx of tonsillectomy S/P breast biopsy, left benign S/P operative procedure on wrist left for fracture Social History Preferred Language: [place] Communication Ability: Effective 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 and A total of 10 systems reviewed and were otherwise negative Physical Exam Vital Signs Vital Signs - 24 hr 11/15/19 12:31 11/15/19 12:33 11/15/19 12:40 Pulse Rate 73 75 70 Pulse Rate [Apical] Pulse Rate from SpO2 Sensor 73 71 Pulse Rhythm [Apical] Pulse Strength [Apical] Respiratory Rate 16 20 22 Respiratory Effort / Characteristics Non-Labored Spontaneous Respiratory Depth Normal Respiratory Pattern Blood Pressure 116/82 116/85 Blood Pressure [Left Arm] Blood Pressure Mean 84 95 Blood Pressure Mean [Left Arm] Blood Pressure Position [Left Arm] Pulse Oximetry 100 100 100 Oxygen Delivery Method Room Air Sepsis Recent Fever Within 48 Hours No Sepsis Action Taken by Nursing No Action Required 11/15/19 13:00 11/15/19 13:07 11/15/19 13:17 Pulse Rate 76 80 Pulse Rate [Apical] 82 Pulse Rate from SpO2 Sensor 75 80 Pulse Rhythm [Apical] Regular Pulse Strength [Apical] Normal Respiratory Rate 21 17 Respiratory Effort / Characteristics Non-Labored Spontaneous Respiratory Depth Normal Respiratory Pattern Regular Blood Pressure 132/77 142/85 H Blood Pressure [Left Arm] 142/85 H Blood Pressure Mean 100 113 Blood Pressure Mean [Left Arm] 104 Blood Pressure Position [Left Arm] Sitting Pulse Oximetry 99 100 100 Oxygen Delivery Method Room Air Room Air Sepsis Recent Fever Within 48 Hours Sepsis Action Taken by Nursing 11/15/19 13:30 11/15/19 13:32 11/15/19 13:40 Pulse Rate 74 Pulse Rate [Apical] 71 Pulse Rate from SpO2 Sensor 74 Pulse Rhythm [Apical] Pulse Strength [Apical] Respiratory Rate 11 L 15 16 Respiratory Effort / Characteristics Respiratory Depth Respiratory Pattern Blood Pressure 136/78 Blood Pressure [Left Arm] 136/78 Blood Pressure Mean 92 Blood Pressure Mean [Left Arm] 97 Blood Pressure Position [Left Arm] Pulse Oximetry 100 100 Oxygen Delivery Method Room Air Sepsis Recent Fever Within 48 Hours Sepsis Action Taken by Nursing 11/15/19 14:14 11/15/19 14:30 11/15/19 14:49 Pulse Rate 73 75 Pulse Rate [Apical] 77 Pulse Rate from SpO2 Sensor 75 76 Pulse Rhythm [Apical] Regular Pulse Strength [Apical] Normal Respiratory Rate 22 13 18 Respiratory Effort / Characteristics Non-Labored Spontaneous Respiratory Depth Normal Respiratory Pattern Regular Blood Pressure 134/80 147/77 H Blood Pressure [Left Arm] 147/77 H Blood Pressure Mean 92 89 Blood Pressure Mean [Left Arm] 100 Blood Pressure Position [Left Arm] Lying Pulse Oximetry 100 98 98 Oxygen Delivery Method Room Air Sepsis Recent Fever Within 48 Hours Sepsis Action Taken by Nursing 11/15/19 15:00 Pulse Rate 78 Pulse Rate [Apical] Pulse Rate from SpO2 Sensor 80 Pulse Rhythm [Apical] Pulse Strength [Apical] Respiratory Rate 16 Respiratory Effort / Characteristics Respiratory Depth Respiratory Pattern Blood Pressure 156/76 H Blood Pressure [Left Arm] Blood Pressure Mean 96 Blood Pressure Mean [Left Arm] Blood Pressure Position [Left Arm] Pulse Oximetry 98 Oxygen Delivery Method Sepsis Recent Fever Within 48 Hours Sepsis Action Taken by Nursing Constitutional: Vital signs reviewed and showed hypertension. Eyes: Pupils are equal round reactive to light. Conjunctiva are noninjected. ENT: Pharynx is clear without erythema or exudate. Mucous membranes are moist. Neck supple without meningeal signs. Respiratory: Clear to auscultation bilaterally. Breath sounds are equal bilaterally. Cardiovascular: Regular rate and rhythm. No rubs or gallops. GI: Soft, nondistended and nontender. Bowel sounds are present. Musculoskeletal: No peripheral edema. No lower extremity tenderness. Integumentary: No cyanosis. Neurologic: The patient is awake and alert. Cranial nerves II-XII are intact. Motor is 5 out of 5 all extremities. Sensation is intact to light touch all extremities. Normal speech. No pronator drift. No dysdiadochokinesis. No limb ataxia. Psychiatric: Anxious. Course Course 1240: Past medical records reviewed. The patient was evaluated in room C04. A complete history and physical exam was performed. 1400: Received results from [facility]. US shows sludge in the gallbladder and fatty infiltration of liver. 1430: The patient was reassessed and is still nauseated and having pain. Her states that she has had issues with dizziness since January of last year when she was diagnosed with meningitis. He thinks she had an MRI and an EEG at this time. I discussed her test results with her and she admits that she does not feel well enough for discharge so the hospitalist has been paged. 1433: I spoke to Marisa Islas PA-C for Dr. Leon, [facility] Hospitalist who will further evaluate the patient. 1440: The patient was updated on test results and plan to admit. The patient verbally expressed understanding and agreement of the treatment plan. The patient will be evaluated for further treatment. Administered Medications Sodium Chloride (Nss 1000ml) 1,000 mls @ 80 mls/hr IV .[id number] ROSITA Stop: 11/16/19 17:59 Last Admin: 11/15/19 18:04 Dose: 80 mls/hr Documented by: [id number] Discontinued Medications Sodium Chloride (Nss) 500 mls @ 999 mls/hr IV .Q31M ROSITA Stop: 11/15/19 13:45 Last Infusion: 11/15/19 13:41 Dose: 0 mls/hr Documented by: [id number] Admin: 11/15/19 13:11 Dose: 999 mls/hr Documented by: [id number] Promethazine HCl 12.5 mg/ (Sodium Chloride) 50.5 mls @ 202 mls/hr IV NOW STA Stop: 11/15/19 15:07 Last Admin: 11/15/19 16:16 Dose: Not Given Documented by: [id number] Meclizine HCl (Antivert) 25 mg PO NOW STA Stop: 11/15/19 14:29 Last Admin: 11/15/19 14:48 Dose: 25 mg Documented by: [id number] Morphine Sulfate (Morphine Sulfate) 4 mg IV NOW STA Stop: 11/15/19 13:02 Last Admin: 11/15/19 13:11 Dose: 4 mg Documented by: [id number] Ondansetron HCl (Zofran) 4 mg IV NOW STA Stop: 11/15/19 13:02 Last Admin: 11/15/19 13:12 Dose: 4 mg Documented by: [id number] Promethazine HCl (Phenergan) Confirm Administered Dose 12.5 mg IV .STK-MED ONE Stop: 11/15/19 15:53 Last Admin: 11/15/19 15:54 Dose: 12.5 mg Documented by: [id number] Medical Decision Making Differential Diagnosis Differential diagnosis includes but is not limited to cholecystitis, biliary colic, pancreatitis, BPPV, CVA, dehydration, amongst others considered. Medical Records Attestation: I reviewed the patient's medical records. The patient was admitted to the hospital in August for bi-basilar pneumonia and a mild colitis. She also had a CT of her brain after presenting in the ED with complaints of dizziness at this time. The physician who saw her diagnosed her with chronic balance issues. Home Medications Current Medication List: was personally reviewed by me Laboratory Data Attestation: I reviewed the patient's lab results. Result diagrams: 11/15/19 13:04 11/15/19 13:04 Lab Results 11/15/19 11/15/19 11/15/19 Range/Units 13:04 13:04 13:04 WBC 4.12 L (4.8-10.8) K/uL RBC 3.98 L (4.2-5.4) M/uL Hgb 11.7 L (12.0-16.0) g/dL Hct 36.0 L (37-47) % MCV 90.5 (80-100) fL MCH 29.4 (25-34) pg MCHC 32.5 (32-36) g/dL RDW Std Deviation 46.8 H (36.4-46.3) fL RDW Coeff of Bonnie 14.1 (11.5-14.5) % Plt Count 163 (130-400) K/uL MPV 9.7 (7.4-10.4) fL Immature Gran % (Auto) 1.0 % Neut % (Auto) 82.5 % Lymph % (Auto) 9.5 % Hale % (Auto) 6.8 % Eos % (Auto) 0.2 % Baso % (Auto) 0.0 % Immature Gran # (Auto) 0.04 H (0.00-0.02) K/uL Neut # (Auto) 3.40 (1.4-6.5) K/uL Lymph # (Auto) 0.39 L (1.2-3.4) K/uL Hale # (Auto) 0.28 (0.11-0.59) K/uL Eos # (Auto) 0.01 (0-0.5) K/uL Baso # (Auto) 0.00 (0-0.2) K/uL PT 10.3 (9.0-12.0) Seconds INR 1.0 (0.9-1.1) APTT (21.0-31.0) Seconds PTT Ratio Sodium 138 (136-145) mmol/L Potassium 3.9 (3.5-5.1) mmol/L Chloride 107 (98-107) mmol/L Carbon Dioxide 23 (21-32) mmol/L Anion Gap 8.0 (3-11) BUN 14 (7-18) mg/dl Creatinine 0.67 (0.6-1.2) mg/dl Est Cr Clr Drug Dosing 75.6 ml/min Est GFR ( Amer) 103.9 Est GFR (Non-Af Amer) 89.7 BUN/Creatinine Ratio 20.8 H (10-20) Glucose 95 (70-99) mg/dl Calcium 9.3 (8.5-10.1) mg/dl Total Bilirubin 0.5 (0.2-1) mg/dl AST 27 (15-37) U/L ALT 21 (12-78) U/L Alkaline Phosphatase 111 (45-117) U/L Troponin I (0-0.045) ng/ml Total Protein 8.1 (6.4-8.2) gm/dl Albumin 3.4 (3.4-5.0) gm/dl Globulin 4.7 H (2.5-4.0) gm/dl Albumin/Globulin Ratio 0.7 L (0.9-2) Lipase (73-393) U/L 11/15/19 11/15/19 Range/Units 13:04 13:04 WBC (4.8-10.8) K/uL RBC (4.2-5.4) M/uL Hgb (12.0-16.0) g/dL Hct (37-47) % MCV (80-100) fL MCH (25-34) pg MCHC (32-36) g/dL RDW Std Deviation (36.4-46.3) fL RDW Coeff of Bonnie (11.5-14.5) % Plt Count (130-400) K/uL MPV (7.4-10.4) fL Immature Gran % (Auto) % Neut % (Auto) % Lymph % (Auto) % Hale % (Auto) % Eos % (Auto) % Baso % (Auto) % Immature Gran # (Auto) (0.00-0.02) K/uL Neut # (Auto) (1.4-6.5) K/uL Lymph # (Auto) (1.2-3.4) K/uL Hale # (Auto) (0.11-0.59) K/uL Eos # (Auto) (0-0.5) K/uL Baso # (Auto) (0-0.2) K/uL PT (9.0-12.0) Seconds INR (0.9-1.1) APTT 27.0 (21.0-31.0) Seconds PTT Ratio 1.0 Sodium (136-145) mmol/L Potassium (3.5-5.1) mmol/L Chloride (98-107) mmol/L Carbon Dioxide (21-32) mmol/L Anion Gap (3-11) BUN (7-18) mg/dl Creatinine (0.6-1.2) mg/dl Est Cr Clr Drug Dosing ml/min Est GFR ( Amer) Est GFR (Non-Af Amer) BUN/Creatinine Ratio (10-20) Glucose (70-99) mg/dl Calcium (8.5-10.1) mg/dl Total Bilirubin (0.2-1) mg/dl AST (15-37) U/L ALT (12-78) U/L Alkaline Phosphatase (45-117) U/L Troponin I < 0.015 (0-0.045) ng/ml Total Protein (6.4-8.2) gm/dl Albumin (3.4-5.0) gm/dl Globulin (2.5-4.0) gm/dl Albumin/Globulin Ratio (0.9-2) Lipase 251 (73-393) U/L Imaging Data Radiologist's Impression: Radiology results as stated below per my review and the radiologist's interpretation: US gallbladder CLINICAL HISTORY: 69 years-old Female presenting with RUQ pain eval for cholecystitis. TECHNIQUE: Real-time grayscale and limited color Doppler ultrasound imaging of the abdomen limited to the right upper quadrant was performed. COMPARISON: CT from 08/31/2019. FINDINGS: Pancreas: Visualized portions of the pancreatic head and body normal. Liver: Normal echogenicity and echotexture. The liver measures 15.7 cm in m aximal sagittal dimension. No sonographic evidence of hepatic mass. Main portal vein patent with normal directional flow. Biliary: No intrahepatic biliary ductal dilatation. Common bile duct measures up to 4 mm in diameter. Gallbladder: Gallbladder sludge. Top normal wall thickness, measuring 3 mm. Physiologic gallbladder distention. No evidence of gallstones or pericholecystic fluid or inflammatory change. Unable to assess sonographic Caputo's sign. Right kidney: Normal in appearance without evidence of hydronephrosis. Ascites: None. Other: None. IMPRESSION: Gallbladder sludge. No cholelithiasis or biliary ductal dilatation. Findings not overly convincing for cholecystitis. ACT 112: Negative or not required by law. Electronically signed by: Enoc Dubose M.D. 11/15/2019 2:[address] head/brain wo con CLINICAL HISTORY: 69 years-old Female presenting with dizzy eval for stroke. TECHNIQUE: Multidetector CT imaging of the head was performed without the use of intravenous contrast. IV contrast: None. One or more dose lowering techniques were used consistent with the principles of ALARA (as low as reasonably achievable), including automatic exposure control, mA or kV adjustment to individual patient size, and/or use of iterative reconstruction. COMPARISON: 08/24/2019. CT DOSE (mGy.cm): The estimated cumulative dose is 537.48 mGy.cm. FINDINGS: Paper Bundler topogram: Unremarkable. Ventricles and sulci normal in size. No hemorrhage. Brain parenchyma normal in appearance with preserved lópez-white differentiation. No acute territorial infarct. No mass effect or midline shift. No extra-axial fluid collection. Paranasal sinuses and mastoid air cells clear. Calvarium intact. IMPRESSION: 1. No acute intracranial abnormality. ACT 112: Negative or not required by law. Electronically signed by: Enoc Dubose M.D. 11/15/2019 1:30 PM ECG Data Attestation: I personally reviewed and interpreted this ECG as follows: Indication: + abdominal pain Rate (beats per minute): 75 Rhythm: + normal sinus ECG ST segments: no ST elevation ECG Findings: + Other (baseline artifact limiting interpretation of leads V4 though V6); no PVCs Blood Pressure Blood Pressure Findings: Elevated blood pressure Blood Pressure Disposition: further management by hospitalist ESTUARDO Narrative I did evaluate the patient as noted above. The patient is presenting with right-sided abdominal pain as well as dizziness. On examination she is neurologically intact. She does have significant tenderness to the right upper quadrant. She has been seen for this before and admitted for colitis and pneumonia as described above. She states her pain is worse and she started vomiting which is new for her. IV access was established. The patient was placed on a continuous catalogue maker. I did treat her with Zofran and normal saline and morphine IV. I did order and personally review the patient's 12-lead EKG as described above. She has no acute ischemic changes. I did order a urine analysis. She does not have a UTI. I did order and review the patient's blood work as noted in the electronic medical record. She has mild leukopenia as well as anemia. LFTs and lipase are unremarkable. I did order a CT of the head and gallbladder ultrasound. I did review the images myself as well as the radiology report as described above. Head CT is unremarkable. 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 She does not remember much of what happened then but her states that she had an MRI and EEG at that time. Ultrasound of the gallbladder demonstrates no signs of cholecystitis. She does have gallbladder sludge. I did reevaluate the patient. She states that she is feeling slightly better but still has significant pain and nausea. She was given meclizine. 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 I did recommend hospitalization for further care and evaluation. I did discuss the case with the hospitalist and case loader operator. Impression & Plan Abdominal pain, RUQ, Vertigo, Anemia Discharge Plan Visit Data *Final* Discharge Date/Time: 11/15/19 16:33 Chief Complaint: Back Injury/Pain ED Provider: Edward Robles Discharge Problem: Abdominal pain, RUQ, Vertigo, Anemia Patient Disposition: Admitted As Inpatient Discharge Instructions Interventions: ED Discharge Assessment Last Done: 11/15/19 16:33 Discharge Problem: Anemia Qualifiers: Anemia type: unspecified type Qualified Code(s): D64.9 - Anemia, unspecified The scribe's documentation has been prepared under my direction and personally reviewed by me in its entirety. I confirm that the note above accurately reflects all work, treatment, procedures, and medical decision making performed by me.
[2019-11-15] MEDS ORDERED: PROMETHAZINE HCL 12.5 MG in SODIUM CHLORIDE 0.9% 50 ML IV STA (14:53)
--- NOTE | 2019-11-15 15:46 | History & Physical Report ---
Date of Service November 15, 2019 Assessment & Plan (1) Biliary colic: (2) Abdominal pain, RUQ: Pt is 69 y/o F with PMH Graves' disease, SLE on CellCept, GERD, HTN, idiopathic peripheral neuropathy presented to ER with complaint of abdominal pain. Patient reports intermittent abdominal pain x several months. Past 3 days with RUQ pain with radiation to right back and right scapula after eating ribs with associated nausea and dry heaves In ER Vitals stable. WBC: 4.1 US Gallbladder: Gallbladder sludge. No cholelithiasis or biliary ductal dilatation. Findings not overly convincing for cholecystitis. -In ER given 500ml NSS, Zofran, Morphine -Admit med/tele -Clear liquid diet for now -NPO midnight -Dilaudid prn pain, Zofran prn nausea -HIDA scan -General surgery consultation -CBC, CMP in am (3) Dizziness: Intermittent dizziness with movement of head and also occurring with increased abdominal pain x 2 days DDX: vertigo CT Head: no acute changes -In ER given meclizine with some improvement -Monitor -May need to consider PT eval for Edilma maneuver (4) Lupus: -Continue Cellcept, Prednisone -On Benlysta (had 2 doses so far) (5) Graves disease: -Continue levothyroxine (6) Hypertension: -Continue losartan DVT Prophylaxis -SCDs Full Code as per discussion with pt Follows with Dr Stallings for routine care Pt was seen and care coordinated with Dr Leon. See addendum History of Present Illness Chief Complaint: Abdominal pain Primary Care Provider: Shoaib Stallings MD Pt is 69 y/o F with PMH Graves' disease, SLE on CellCept, GERD, HTN, idiopathic peripheral neuropathy presented to ER with complaint of abdominal pain. Patient reports intermittent abdominal pain for several months. Describes abdominal pain to right upper quadrant with radiation to right back and right scapula. Reports is noticed pain with eating, especially cucumbers or fatty foods. Over the past couple of weeks patient states is only been eating crackers, breads, rice to try and avoid pain. Patient states 3 days ago ate ribs and since has had right upper quadrant pain with radiation to right back. Tried heating pad, lidocaine patch and Tylenol without much relief. This morning increased pain and nausea and dry heaves. Reports 3 loose stools this morning. Pain is aggravated with movement. Patient states past 2 days has been feeling dizzy sensation and "looking like things are moving" that occurs with movement of head. Also reports feels dizzy when she has increased pain to her abdomen. Reports heartburn for the past couple weeks has been taking omeprazole intermittently for symptoms. Patient states history of vertigo in the past however dizziness at that time was more severe. 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 History colitis in 08/2019. Denies fever/chills, diaphoresis, hematemesis, hematochezia, melena, LUNA, syncope, vision changes, neck pain, CP, SOB, orthopnea, palpitations, cough, sore throat, choking, otalgia, rhinorrhea, paresthesias, weakness, extremity weakness, extremity edema, rashes, urinary symptoms. Allergies Allergy/AdvReac Type Severity Reaction Status Date / Time cyclobenzaprine Allergy Mild red and Verified 11/15/19 13:38 itchy aspirin Allergy Unknown RASH Verified 11/15/19 13:38 Home Medications Home Medications Medication Instructions Recorded Confirmed Type levothyroxine [Synthroid] 75 mcg PO QAM 08/24/19 11/15/19 History losartan [Cozaar] 25 mg PO HS 08/24/19 11/15/19 History omeprazole 20 mg PO DAILY PRN 08/24/19 11/15/19 History ondansetron HCl [Zofran] 4 mg PO Q6H PRN 08/24/19 11/15/19 History promethazine 12.5 mg PO Q6H PRN 08/24/19 11/15/19 History hydrocodone-acetaminophen [Lorcet 1 tab PO Q6H PRN 08/31/19 11/15/19 History (hydrocodone)] mycophenolate mofetil [CellCept] 1,000 mg PO BID 08/31/19 11/15/19 History acetaminophen [Mapap 650 mg PO Q6H PRN #30 tab 09/02/19 11/15/19 Rx (acetaminophen)] dicyclomine 20 mg PO BID PRN 11/15/19 11/15/19 History potassium chloride 10 meq PO HS 11/15/19 11/15/19 History prednisone 5 mg PO DAILY 11/15/19 11/15/19 History Past Med/Surg History Medical History GERD (gastroesophageal reflux disease) Graves disease Hypertension 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) Lupus (Acute) Neuropathy Surgical History History of appendectomy (Chronic) Hx of tonsillectomy Social History Preferred Language: [place] Communication Ability: Effective Camp Tender Required: No Beliefs That Will Affect Care: None marital status: Current Living Situation: Spouse current occupational status: retired Feels Safe at Home: Yes Smoking Status: Former smoker Hx Alcohol Use: Yes Hx Substance Use: No Review of Systems Review of Systems: All systems reviewed & are unremarkable except as noted in HPI & below Physical Exam Physical Exam: General: no distress, WDWN Head: normocephalic, atraumatic Eyes: PERRL, EOM's intact, conjunctiva non-injected, anicteric ENT: normal inspection external ears, nose, mucous membranes mildly dry Neck: supple, trachea midline, non-tender Lungs: clear, no respiratory distress, no wheezing/rhonchi/rales CV: RRR, no murmur, no pretibial edema Abd: normal BS, soft, +tenderness to RUQ, +Caputo's sign, mild tenderness to epigastric region, no other abdominal tenderness to palpation Ext: no cyanosis, no calf tenderness Neuro: A&O x 3, no focal deficits noted, normal affect Skin: warm, dry Results & Data Vital Signs (Past 12 Hours) Vital Signs Pulse Pulse Resp BP BP Pulse Ox 11/15/19 14:49 77 18 147/77 H 98 11/15/19 13:40 71 16 136/78 100 11/15/19 13:17 82 20 142/85 H 100 11/15/19 13:07 100 11/15/19 12:33 75 20 116/85 100 Laboratory Results Short CBC 11/15/19 Range/Units 13:04 WBC 4.12 L (4.8-10.8) K/uL Hgb 11.7 L (12.0-16.0) g/dL Hct 36.0 L (37-47) % Plt Count 163 (130-400) K/uL BMP 11/15/19 13:04 Sodium 138 Potassium 3.9 Chloride 107 Carbon Dioxide 23 BUN 14 Creatinine 0.67 Glucose 95 Calcium 9.3 Cardiac Enzymes 11/15/19 Range/Units 13:04 Troponin I < 0.015 (0-0.045) ng/ml Liver Function 11/15/19 Range/Units 13:04 Total Bilirubin 0.5 (0.2-1) mg/dl AST 27 (15-37) U/L ALT 21 (12-78) U/L Alkaline Phosphatase 111 (45-117) U/L Albumin 3.4 (3.4-5.0) gm/dl Diagnostic Findings Gallbladder US: IMPRESSION: Gallbladder sludge. No cholelithiasis or biliary ductal dilatation. Findings not overly convincing for cholecystitis. CT Head: IMPRESSION: 1. No acute intracranial abnormality Code Status & VTE Plan VTE Prophylaxis Plan VTE Prophylaxis will be ordered: Yes Supervising Physician Co-Signing Physician Notes I saw this patient with the physician collections assistant, I participated in the history, physical, review of systems, and physical exam. I reviewed the medications with the patient and the physician collections assistant and helped reconcile the medications. I helped take a detailed family and social history as well. I formulated the assessment and plan personally with the physician collections assistant and went over it with the patient. Physical Exam Gen-AAO x 3, NAD, Afebrile Head-NCAT, EOMI, PERRLA, Anicteric Sclera, No Posterior Pharyngeal Erythema Neck-Supple, No JVD, No Thyromegaly, No Masses, No LAD, No Bruits Lungs-Clear to Auscultation Bilaterally, No Rales, No Rhonchi, No Wheezing, No Crepitus Chest-No S4, +S1, +S2, No S3, No Murmurs, No Rubs, No Gallops, No Ectopy Abdomen-Soft, Bowel Sounds Present, RUQ Tender, Non Distended, No Hepatomegaly, No Splenomegaly, No Palpable Masses, No Rebound, No Rigidity, No Guarding Musculoskeletal-Full Range of Motion Bilaterally, No CVAT Extremities-No Cyanosis, No Clubbing, No Edema Nuero-Cranial Nerves II-XII grossly intact, Motor WNL, DTRs WNL, Strength WNL, Non Focal Psych-Normal Mood
[2019-11-15] MEDS ORDERED: PROMETHAZINE 12.5 MG/50.5 ML NSS IV ONE (15:52)
[2019-11-15 17:34] LABS: Appearance Urine Clear (Clear); Bilirubin Urine Negative (Negative); Blood Urine Negative (Negative); Color Urine Yellow; Glucose Urine UA Negative (Negative); Ketones Urine 1+ (Negative); Leukocyte Esterase Urine Negative (Negative); Nitrite Urine Negative (Negative); Protein Urine Negative (Negative); Urobilinogen Urine Negative (Negative); pH Urine 6.5 (4.5-7.5)
--- NOTE | 2019-11-15 17:41 | Surgery Consultation ---
Date of Consultation November 15, 2019 Assessment & Plan (1) Biliary colic: This patient has sludge in her gallbladder. She has right upper quadrant pain with tenderness. There is some thickening of the gallbladder wall by ultrasound. He pain is been intermittent. I agree that cholecystectomy is indicated. I have explained to her the laparoscopic procedure and the possible need to convert to an open procedure. I explained the possible complications and answered her questions. She has signed a consent form. History of Present Illness Reason for Consultation: Right upper quadrant abdominal pain Requesting Physician: Dick Leon DO Attending Physician: Dick Leon DO History of Present Illness I been asked by Dr. Leon to see this 69-year-old female who presented to the emergency room with a complaint of pain in the right upper quadrant. She has had intermittent abdominal discomfort in this area for many months. It would resolve spontaneously normally. This 1 has lasted since Monday. She has not had any fever. She has had some nausea and vomiting. She had loose stool today but no melena or hematochezia. Normally her stools are formed. She has no dysuria or hematuria. She underwent an ultrasound that showed a physiologically distended gallbladder whose wall is 3 mm thick. It contains sludge. There is no ductal dilatation. Allergies Allergy/AdvReac Type Severity Reaction Status Date / Time cyclobenzaprine Allergy Mild red and Verified 11/15/19 13:38 itchy aspirin Allergy Unknown RASH Verified 11/15/19 13:38 Home Medications Home Medications Medication Instructions Recorded Confirmed Type levothyroxine [Synthroid] 75 mcg PO QAM 08/24/19 11/15/19 History losartan [Cozaar] 25 mg PO HS 08/24/19 11/15/19 History omeprazole 20 mg PO DAILY PRN 08/24/19 11/15/19 History ondansetron HCl [Zofran] 4 mg PO Q6H PRN 08/24/19 11/15/19 History promethazine 12.5 mg PO Q6H PRN 08/24/19 11/15/19 History hydrocodone-acetaminophen [Lorcet 1 tab PO Q6H PRN 08/31/19 11/15/19 History (hydrocodone)] mycophenolate mofetil [CellCept] 1,000 mg PO BID 08/31/19 11/15/19 History acetaminophen [Mapap 650 mg PO Q6H PRN #30 tab 09/02/19 11/15/19 Rx (acetaminophen)] dicyclomine 20 mg PO BID PRN 11/15/19 11/15/19 History potassium chloride 10 meq PO HS 11/15/19 11/15/19 History prednisone 5 mg PO DAILY 11/15/19 11/15/19 History Patient History Medical History (Updated 11/15/19 @ 15:59 by Marisa Islas PA-C) GERD (gastroesophageal reflux disease) Graves disease Hypertension 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) Lupus (Acute) Neuropathy Surgical History (Updated 11/15/19 @ 17:40 by Woo Chairez MD) H/O unilateral salpingectomy right side for tubal History of appendectomy (Chronic) Hx of tonsillectomy S/P breast biopsy, left benign S/P operative procedure on wrist left for fracture Social History Preferred Language: [place] Communication Ability: Effective Ui Programmer Required: No Beliefs That Will Affect Care: None marital status: Current Living Situation: Spouse current occupational status: retired Feels Safe at Home: Yes Smoking Status: Former smoker Hx Alcohol Use: Yes Hx Substance Use: No Review of Systems Review of Systems: All systems reviewed & are unremarkable except as noted in HPI & below Physical Exam Constitutional: + thin; no acute distress Respiratory: normal respiratory effort, lungs clear to auscultation Cardiovascular: Rate/Rhythm: regular rate and regular rhythm Gastrointestinal (Abdomen): Inspection/Auscultation: normal bowel sounds; abdomen not distended Percussion/Palpation: + abdomen tender (Right upper quadrant) and abdomen soft; no guarding Skin: no rashes, warm and dry Lymphatic: no cervical lymphadenopathy Results & Data Vital Signs (Past 12 Hours) Vital Signs Pulse Pulse Resp BP BP Pulse Ox 11/15/19 16:00 75 15 142/83 H 96 11/15/19 15:30 86 16 131/78 97 11/15/19 15:00 78 16 156/76 H 98 11/15/19 14:49 77 18 147/77 H 98 11/15/19 14:30 75 13 147/77 H 98 11/15/19 14:14 73 22 134/80 100 11/15/19 13:40 71 16 136/78 100 11/15/19 13:32 74 15 136/78 100 11/15/19 13:30 11 L 11/15/19 13:17 80 82 17 142/85 H 142/85 H 100 11/15/19 13:07 100 11/15/19 13:00 76 21 132/77 99 11/15/19 12:40 70 22 100 11/15/19 12:33 75 20 116/85 100 11/15/19 12:31 73 16 116/82 100 Laboratory Results 11/15/19 11/15/19 11/15/19 Range/Units Unknown 13:04 13:04 WBC (4.8-10.8) K/uL RBC (4.2-5.4) M/uL Hgb (12.0-16.0) g/dL Hct (37-47) % MCV (80-100) fL MCH (25-34) pg MCHC (32-36) g/dL RDW Std Deviation (36.4-46.3) fL RDW Coeff of Bonnie (11.5-14.5) % Plt Count (130-400) K/uL MPV (7.4-10.4) fL Immature Gran % (Auto) % Neut % (Auto) % Lymph % (Auto) % [place] % (Auto) % Eos % (Auto) % Baso % (Auto) % Immature Gran # (Auto) (0.00-0.02) K/uL Neut # (Auto) (1.4-6.5) K/uL Lymph # (Auto) (1.2-3.4) K/uL [place] # (Auto) (0.11-0.59) K/uL Eos # (Auto) (0-0.5) K/uL Baso # (Auto) (0-0.2) K/uL PT (9.0-12.0) Seconds INR (0.9-1.1) APTT 27.0 (21.0-31.0) Seconds PTT Ratio 1.0 Sodium (136-145) mmol/L Potassium (3.5-5.1) mmol/L Chloride (98-107) mmol/L Carbon Dioxide (21-32) mmol/L Anion Gap (3-11) BUN (7-18) mg/dl Creatinine (0.6-1.2) mg/dl Est Cr Clr Drug Dosing ml/min Est GFR ( Amer) Est GFR (Non-Af Amer) BUN/Creatinine Ratio (10-20) Glucose (70-99) mg/dl Calcium (8.5-10.1) mg/dl Total Bilirubin (0.2-1) mg/dl AST (15-37) U/L ALT (12-78) U/L Alkaline Phosphatase (45-117) U/L Troponin I < 0.015 (0-0.045) ng/ml Total Protein (6.4-8.2) gm/dl Albumin (3.4-5.0) gm/dl Globulin (2.5-4.0) gm/dl Albumin/Globulin Ratio (0.9-2) Lipase 251 (73-393) U/L Urine Color Yellow Urine Appearance Clear (Clear) Urine pH 6.5 (4.5-7.5) Ur Specific [place] 1.020 (1.000-1.030) Urine Protein Negative (Negative) Urine Glucose (UA) Negative (Negative) Urine Ketones 1+ H (Negative) Urine Blood Negative (Negative) Urine Nitrite Negative (Negative) Urine Bilirubin Negative (Negative) Urine Urobilinogen Negative (Negative) Ur Leukocyte Esterase Negative (Negative) 11/15/19 11/15/19 11/15/19 Range/Units 13:04 13:04 13:04 WBC 4.12 L (4.8-10.8) K/uL RBC 3.98 L (4.2-5.4) M/uL Hgb 11.7 L (12.0-16.0) g/dL Hct 36.0 L (37-47) % MCV 90.5 (80-100) fL MCH 29.4 (25-34) pg MCHC 32.5 (32-36) g/dL RDW Std Deviation 46.8 H (36.4-46.3) fL RDW Coeff of Bonnie 14.1 (11.5-14.5) % Plt Count 163 (130-400) K/uL MPV 9.7 (7.4-10.4) fL Immature Gran % (Auto) 1.0 % Neut % (Auto) 82.5 % Lymph % (Auto) 9.5 % [place] % (Auto) 6.8 % Eos % (Auto) 0.2 % Baso % (Auto) 0.0 % Immature Gran # (Auto) 0.04 H (0.00-0.02) K/uL Neut # (Auto) 3.40 (1.4-6.5) K/uL Lymph # (Auto) 0.39 L (1.2-3.4) K/uL [place] # (Auto) 0.28 (0.11-0.59) K/uL Eos # (Auto) 0.01 (0-0.5) K/uL Baso # (Auto) 0.00 (0-0.2) K/uL PT 10.3 (9.0-12.0) Seconds INR 1.0 (0.9-1.1) APTT (21.0-31.0) Seconds PTT Ratio Sodium 138 (136-145) mmol/L Potassium 3.9 (3.5-5.1) mmol/L Chloride 107 (98-107) mmol/L Carbon Dioxide 23 (21-32) mmol/L Anion Gap 8.0 (3-11) BUN 14 (7-18) mg/dl Creatinine 0.67 (0.6-1.2) mg/dl Est Cr Clr Drug Dosing 75.6 ml/min Est GFR ( Amer) 103.9 Est GFR (Non-Af Amer) 89.7 BUN/Creatinine Ratio 20.8 H (10-20) Glucose 95 (70-99) mg/dl Calcium 9.3 (8.5-10.1) mg/dl Total Bilirubin 0.5 (0.2-1) mg/dl AST 27 (15-37) U/L ALT 21 (12-78) U/L Alkaline Phosphatase 111 (45-117) U/L Troponin I (0-0.045) ng/ml Total Protein 8.1 (6.4-8.2) gm/dl Albumin 3.4 (3.4-5.0) gm/dl Globulin 4.7 H (2.5-4.0) gm/dl Albumin/Globulin Ratio 0.7 L (0.9-2) Lipase (73-393) U/L Urine Color Urine Appearance (Clear) Urine pH (4.5-7.5) Ur Specific [place] (1.000-1.030) Urine Protein (Negative) Urine Glucose (UA) (Negative) Urine Ketones (Negative) Urine Blood (Negative) Urine Nitrite (Negative) Urine Bilirubin (Negative) Urine Urobilinogen (Negative) Ur Leukocyte Esterase (Negative) Diagnostic Findings US gallbladder CLINICAL HISTORY: 69 years-old Female presenting with RUQ pain eval for cholecystitis. TECHNIQUE: Real-time grayscale and limited color Doppler ultrasound imaging of the abdomen limited to the right upper quadrant was performed. COMPARISON: CT from 08/31/2019. FINDINGS: Pancreas: Visualized portions of the pancreatic head and body normal. Liver: Normal echogenicity and echotexture. The liver measures 15.7 cm in maximal sagittal dimension. No sonographic evidence of hepatic mass. Main portal vein patent with normal directional flow. Biliary: No intrahepatic biliary ductal dilatation. Common bile duct measures up to 4 mm in diameter. Gallbladder: Gallbladder sludge. Top normal wall thickness, measuring 3 mm. Physiologic gallbladder distention. No evidence of gallstones or pericholecystic fluid or inflammatory change. Unable to assess sonographic Caputo's sign. Right kidney: Normal in appearance without evidence of hydronephrosis. Ascites: None. Other: None. IMPRESSION: Gallbladder sludge. No cholelithiasis or biliary ductal dilatation. Findings not overly convincing for cholecystitis.
[2019-11-15] MEDS: SODIUM CHLORIDE 0.9% 1000ML 1,000 ML IV SCH (18:04)
[2019-11-15] MEDS: HYDROmorphone INJ 0.5 MG/0.5 ML SYR IV PRN (19:42)
[2019-11-15] MEDS: ONDANSETRON INJ 2 MG/ML 2 ML VIAL IV PRN (19:42)
[2019-11-15] MEDS: MYCOPHENOLATE MOFETIL 250 MG CAP PO SCH (20:50)
[2019-11-15] MEDS: LOSARTAN POTASSIUM 25 MG TAB PO SCH (20:50)
[2019-11-15] MEDS: POTASSIUM CHLORIDE 10 MEQ TABCR PO SCH (20:50)
[2019-11-16] MEDS: LEVOTHYROXINE SODIUM 75 MCG TABLET PO SCH (05:40)
[2019-11-16] MEDS: SODIUM CHLORIDE 0.9% 1000ML 1,000 ML IV SCH (05:43)
[2019-11-16] MEDS: ONDANSETRON INJ 2 MG/ML 2 ML VIAL IV PRN ×2 (07:32→13:52)
[2019-11-16] MEDS: predniSONE 5 MG TAB PO SCH (07:39)
[2019-11-16] MEDS: MYCOPHENOLATE MOFETIL 250 MG CAP PO SCH ×2 (07:40→20:10)
[2019-11-16 08:00] LABS: Hematocrit (blood only) 31.1 % (37-47); Mean Corpuscular Hemoglobin 29.5 pg (25-34); Mean Corpuscular Hgb Conc 32.2 g/dL (32-36); Mean Corpuscular Volume 91.7 fL (80-100); Mean Platelet Volume 9.6 fL (7.4-10.4); Platelet Count 155 K/uL (130-400); RDW Coefficient of Variation 14.1 % (11.5-14.5); RDW Standard Deviation 47.6 fL (36.4-46.3); Red Blood Count 3.39 M/uL (4.2-5.4); White Blood Count 2.09 K/uL (4.8-10.8)
[2019-11-16] MEDS: HYDROmorphone INJ 0.5 MG/0.5 ML SYR IV PRN (08:07)
--- NOTE | 2019-11-16 08:09 | Electrocardiogram Report ---
Test Reason : Blood Pressure : / mmHG Vent. Rate : 075 BPM Atrial Rate : 075 BPM P-R Int : 144 ms QRS Dur : 082 ms QT Int : 394 ms P-R-T Axes : 035 031 059 degrees QTc Int : 439 ms Normal sinus rhythm Normal ECG When compared with ECG of 24-AUG-2019 07:15, No significant change was found Confirmed by Prakash Wright ([id number]) on 11/16/2019 8:09:28 AM Referred By: SELF Confirmed By:Prakash Wright
[2019-11-16 08:39] LABS: Albumin Level 2.8 gm/dl (3.4-5.0); BUN Creatinine Ratio 21.2 (10-20); Calcium 8.5 mg/dl (8.5-10.1); Creatinine Clr Calc Pharmacy 81.7 ml/min; Est GFR (African American) 106.6; Potassium 3.4 mmol/L (3.5-5.1)
[2019-11-16 08:40] LABS: Albumin Globulin Ratio 0.7 (0.9-2); Bilirubin,Total 0.3 mg/dl (0.2-1); Globulin 3.9 gm/dl (2.5-4.0); Total Protein 6.7 gm/dl (6.4-8.2)
[2019-11-16] MEDS: POTASSIUM CHLORIDE / WTR 10 MEQ/100 ML PLCT IV SCH ×2 (09:21→10:39)
--- NOTE | 2019-11-16 10:08 | Surgery Progress Note ---
Date of Service November 16, 2019 Assessment & Plan (1) Biliary colic: Biliary colic with gallbladder sludge, for laparoscopic cholecystectomy later today Previously reviewed procedure and possible complications We will proceed with surgery Subjective Appears more comfortable but stated she continued to have pain through the night although less No nausea or vomiting Results & Data Vital Signs (Past 12 Hours) Vital Signs Temp Pulse Pulse Resp BP BP Pulse Ox 11/16/19 07:12 37.2 C 72 18 125/71 97 11/16/19 07:06 82 11/16/19 03:36 36.8 C 85 18 128/75 96 11/15/19 23:35 37.0 C 79 20 131/78 95 11/15/19 22:59 82 Laboratory Results 11/16/19 11/16/19 11/15/19 Range/Units 07:37 07:37 Unknown WBC 2.09 L (4.8-10.8) K/uL RBC 3.39 L (4.2-5.4) M/uL Hgb 10.0 L (12.0-16.0) g/dL Hct 31.1 L (37-47) % MCV 91.7 (80-100) fL MCH 29.5 (25-34) pg MCHC 32.2 (32-36) g/dL RDW Std Deviation 47.6 H (36.4-46.3) fL RDW Coeff of Bonnie 14.1 (11.5-14.5) % Plt Count 155 (130-400) K/uL MPV 9.6 (7.4-10.4) fL Immature Gran % (Auto) % Neut % (Auto) % Lymph % (Auto) % Lucas % (Auto) % Eos % (Auto) % Baso % (Auto) % Immature Gran # (Auto) (0.00-0.02) K/uL Neut # (Auto) (1.4-6.5) K/uL Lymph # (Auto) (1.2-3.4) K/uL Lucas # (Auto) (0.11-0.59) K/uL Eos # (Auto) (0-0.5) K/uL Baso # (Auto) (0-0.2) K/uL PT (9.0-12.0) Seconds INR (0.9-1.1) APTT (21.0-31.0) Seconds PTT Ratio Sodium 140 (136-145) mmol/L Potassium 3.4 L (3.5-5.1) mmol/L Chloride 109 H (98-107) mmol/L Carbon Dioxide 24 (21-32) mmol/L Anion Gap 7.0 (3-11) BUN 13 (7-18) mg/dl Creatinine 0.62 (0.6-1.2) mg/dl Est Cr Clr Drug Dosing 81.7 ml/min Est GFR ( Amer) 106.6 Est GFR (Non-Af Amer) 92.0 BUN/Creatinine Ratio 21.2 H (10-20) Glucose 88 (70-99) mg/dl Calcium 8.5 (8.5-10.1) mg/dl Total Bilirubin 0.3 (0.2-1) mg/dl AST 22 (15-37) U/L ALT 15 (12-78) U/L Alkaline Phosphatase 86 (45-117) U/L Troponin I (0-0.045) ng/ml Total Protein 6.7 (6.4-8.2) gm/dl Albumin 2.8 L (3.4-5.0) gm/dl Globulin 3.9 (2.5-4.0) gm/dl Albumin/Globulin Ratio 0.7 L (0.9-2) Lipase (73-393) U/L Urine Color Yellow Urine Appearance Clear (Clear) Urine pH 6.5 (4.5-7.5) Ur Specific [place] 1.020 (1.000-1.030) Urine Protein Negative (Negative) Urine Glucose (UA) Negative (Negative) Urine Ketones 1+ H (Negative) Urine Blood Negative (Negative) Urine Nitrite Negative (Negative) Urine Bilirubin Negative (Negative) Urine Urobilinogen Negative (Negative) Ur Leukocyte Esterase Negative (Negative) 11/15/19 11/15/19 11/15/19 Range/Units 13:04 13:04 13:04 WBC (4.8-10.8) K/uL RBC (4.2-5.4) M/uL Hgb (12.0-16.0) g/dL Hct (37-47) % MCV (80-100) fL MCH (25-34) pg MCHC (32-36) g/dL RDW Std Deviation (36.4-46.3) fL RDW Coeff of Bonnie (11.5-14.5) % Plt Count (130-400) K/uL MPV (7.4-10.4) fL Immature Gran % (Auto) % Neut % (Auto) % Lymph % (Auto) % Lucas % (Auto) % Eos % (Auto) % Baso % (Auto) % Immature Gran # (Auto) (0.00-0.02) K/uL Neut # (Auto) (1.4-6.5) K/uL Lymph # (Auto) (1.2-3.4) K/uL [place] # (Auto) (0.11-0.59) K/uL Eos # (Auto) (0-0.5) K/uL Baso # (Auto) (0-0.2) K/uL PT 10.3 (9.0-12.0) Seconds INR 1.0 (0.9-1.1) APTT 27.0 (21.0-31.0) Seconds PTT Ratio 1.0 Sodium (136-145) mmol/L Potassium (3.5-5.1) mmol/L Chloride (98-107) mmol/L Carbon Dioxide (21-32) mmol/L Anion Gap (3-11) BUN (7-18) mg/dl Creatinine (0.6-1.2) mg/dl Est Cr Clr Drug Dosing ml/min Est GFR ( Amer) Est GFR (Non-Af Amer) BUN/Creatinine Ratio (10-20) Glucose (70-99) mg/dl Calcium (8.5-10.1) mg/dl Total Bilirubin (0.2-1) mg/dl AST (15-37) U/L ALT (12-78) U/L Alkaline Phosphatase (45-117) U/L Troponin I < 0.015 (0-0.045) ng/ml Total Protein (6.4-8.2) gm/dl Albumin (3.4-5.0) gm/dl Globulin (2.5-4.0) gm/dl Albumin/Globulin Ratio (0.9-2) Lipase 251 (73-393) U/L Urine Color Urine Appearance (Clear) Urine pH (4.5-7.5) Ur Specific [place] (1.000-1.030) Urine Protein (Negative) Urine Glucose (UA) (Negative) Urine Ketones (Negative) Urine Blood (Negative) Urine Nitrite (Negative) Urine Bilirubin (Negative) Urine Urobilinogen (Negative) Ur Leukocyte Esterase (Negative) 11/15/19 11/15/19 Range/Units 13:04 13:04 WBC 4.12 L (4.8-10.8) K/uL RBC 3.98 L (4.2-5.4) M/uL Hgb 11.7 L (12.0-16.0) g/dL Hct 36.0 L (37-47) % MCV 90.5 (80-100) fL MCH 29.4 (25-34) pg MCHC 32.5 (32-36) g/dL RDW Std Deviation 46.8 H (36.4-46.3) fL RDW Coeff of Bonnie 14.1 (11.5-14.5) % Plt Count 163 (130-400) K/uL MPV 9.7 (7.4-10.4) fL Immature Gran % (Auto) 1.0 % Neut % (Auto) 82.5 % Lymph % (Auto) 9.5 % Lucas % (Auto) 6.8 % Eos % (Auto) 0.2 % Baso % (Auto) 0.0 % Immature Gran # (Auto) 0.04 H (0.00-0.02) K/uL Neut # (Auto) 3.40 (1.4-6.5) K/uL Lymph # (Auto) 0.39 L (1.2-3.4) K/uL Lucas # (Auto) 0.28 (0.11-0.59) K/uL Eos # (Auto) 0.01 (0-0.5) K/uL Baso # (Auto) 0.00 (0-0.2) K/uL PT (9.0-12.0) Seconds INR (0.9-1.1) APTT (21.0-31.0) Seconds PTT Ratio Sodium 138 (136-145) mmol/L Potassium 3.9 (3.5-5.1) mmol/L Chloride 107 (98-107) mmol/L Carbon Dioxide 23 (21-32) mmol/L Anion Gap 8.0 (3-11) BUN 14 (7-18) mg/dl Creatinine 0.67 (0.6-1.2) mg/dl Est Cr Clr Drug Dosing 75.6 ml/min Est GFR ( Amer) 103.9 Est GFR (Non-Af Amer) 89.7 BUN/Creatinine Ratio 20.8 H (10-20) Glucose 95 (70-99) mg/dl Calcium 9.3 (8.5-10.1) mg/dl Total Bilirubin 0.5 (0.2-1) mg/dl AST 27 (15-37) U/L ALT 21 (12-78) U/L Alkaline Phosphatase 111 (45-117) U/L Troponin I (0-0.045) ng/ml Total Protein 8.1 (6.4-8.2) gm/dl Albumin 3.4 (3.4-5.0) gm/dl Globulin 4.7 H (2.5-4.0) gm/dl Albumin/Globulin Ratio 0.7 L (0.9-2) Lipase (73-393) U/L Urine Color Urine Appearance (Clear) Urine pH (4.5-7.5) Ur Specific [place] (1.000-1.030) Urine Protein (Negative) Urine Glucose (UA) (Negative) Urine Ketones (Negative) Urine Blood (Negative) Urine Nitrite (Negative) Urine Bilirubin (Negative) Urine Urobilinogen (Negative) Ur Leukocyte Esterase (Negative)
--- NOTE | 2019-11-16 15:01 | Anesthesiology Consultation ---
Date of Service November 16, 2019 Assessment & Plan (1) Encounter for pre-operative examination: Chart Review Chart Review: Acceptable Risk for Surgery History Surgery Operation Date: 11/16/19 14:55 Proposed Procedures p Laparoscopic Cholecystectomy - Woo Chairez MD Height/Weight Height: 5 ft 6.5 in Weight: 63.6 kg Allergies Allergy/AdvReac Type Severity Reaction Status Date / Time cyclobenzaprine Allergy Mild red and Verified 11/15/19 13:38 itchy aspirin Allergy Unknown RASH Verified 11/15/19 13:38 Medications Home Medications Medication Instructions Recorded Confirmed Last Taken levothyroxine [Synthroid] 75 mcg PO QAM 08/24/19 11/15/19 11/15/19 09:00 losartan [Cozaar] 25 mg PO HS 08/24/19 11/15/19 08/30/19 omeprazole 20 mg PO DAILY PRN 08/24/19 11/15/19 Unknown ondansetron HCl [Zofran] 4 mg PO Q6H PRN 08/24/19 11/15/19 08/31/19 promethazine 12.5 mg PO Q6H PRN 08/24/19 11/15/19 08/31/19 hydrocodone-acetaminophen [Lorcet 1 tab PO Q6H PRN 08/31/19 11/15/19 08/31/19 (hydrocodone)] mycophenolate mofetil [CellCept] 1,000 mg PO BID 08/31/19 11/15/19 Unknown acetaminophen [Mapap 650 mg PO Q6H PRN #30 tab 09/02/19 11/15/19 Unknown (acetaminophen)] dicyclomine 20 mg PO BID PRN 11/15/19 11/15/19 Unknown potassium chloride 10 meq PO HS 11/15/19 11/15/19 Unknown prednisone 5 mg PO DAILY 11/15/19 11/15/19 11/15/19 Active Medications Generic Name Dose Route Start Last Admin Trade Name Freq PRN Reason Stop Dose Admin Hydromorphone HCl 0.5 mg 11/15/19 16:42 11/16/19 08:07 Dilaudid IV 11/29/19 16:41 0.5 mg Q3H PRN Administration Pain Sodium Chloride 1,000 mls @ 80 mls/hr 11/15/19 17:00 11/16/19 05:43 Nss 1000ml IV 11/16/19 17:59 80 mls/hr .[id number] ROSITA Administration Levothyroxine Sodium 75 mcg 11/16/19 06:30 11/16/19 05:40 Synthroid PO 12/16/19 06:29 75 mcg DAILYBB ROSITA Administration Losartan Potassium 25 mg 11/15/19 21:00 11/15/19 20:50 Cozaar PO 12/15/19 20:59 25 mg HS ROSITA Administration Mycophenolate Mofetil 1,000 mg 11/15/19 21:00 11/16/19 07:40 Cellcept PO 12/15/19 20:59 Not Given BID ROSITA Ondansetron HCl 4 mg 11/15/19 16:42 11/16/19 13:52 Zofran IV 12/15/19 16:41 4 mg Q6H PRN Administration Nausea Potassium Chloride 10 meq 11/15/19 21:00 11/15/19 20:50 Klor-Con M10 PO 12/15/19 20:59 10 meq HS ROSITA Administration Prednisone 5 mg 11/16/19 09:00 11/16/19 07:39 Prednisone PO 12/16/19 08:59 5 mg DAILY ROSITA Administration NPO Date Last Intake of Fluids: 11/16/19 Last Intake of Fluids Comment: sips of water with am meds Past Medical History Medical History (Updated 11/16/19 @ 15:01 by Ronen Caemjo MD) Anemia (Acute) GERD (gastroesophageal reflux disease) Graves disease Hypertension 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) Lupus (Acute) Neuropathy Past Surgical History Surgical History H/O unilateral salpingectomy right side for tubal History of appendectomy (Chronic) Hx of tonsillectomy S/P breast biopsy, left benign S/P operative procedure on wrist left for fracture Social History Smoking Status: Former smoker Do You Dip or Chew Tobacco: No Hx Alcohol Use: Yes alcohol intake frequency: holidays/special occasions only Hx Substance Use: No Physical Exam Vital Signs Last Vital Signs Temp 37.0 C 11/16/19 11:13 Pulse 75 11/16/19 11:13 Resp 18 11/16/19 11:13 BP 139/75 11/16/19 11:13 Pulse Ox 98 11/16/19 11:13 Testing Laboratory Results 11/16/19 07:37 11/16/19 07:37 PT 10.3 Seconds (9.0-12.0) 11/15/19 13:04 INR 1.0 (0.9-1.1) 11/15/19 13:04 APTT 27.0 Seconds (21.0-31.0) 11/15/19 13:04 Urine Color Yellow 11/15/19 Unknown Urine Appearance Clear (Clear) 11/15/19 Unknown Urine pH 6.5 (4.5-7.5) 11/15/19 Unknown Ur Specific [place] 1.020 (1.000-1.030) 11/15/19 Unknown Urine Protein Negative (Negative) 11/15/19 Unknown Urine Glucose (UA) Negative (Negative) 11/15/19 Unknown Urine Ketones 1+ (Negative) H 11/15/19 Unknown Urine Nitrite Negative (Negative) 11/15/19 Unknown Ur Leukocyte Esterase Negative (Negative) 11/15/19 Unknown Electrocardiogram Date: 11/16/19 Findings: + NSR @ (75)
[2019-11-16] MEDS ORDERED: PROMETHAZINE HCL 6.25 MG in SODIUM CHLORIDE 0.9% 50 ML IV PRN (15:02)
[2019-11-16] MEDS ORDERED: ATROPINE SULFATE 0.1 MG/ML 10ML SYR IV PRN (15:02)
[2019-11-16] MEDS ORDERED: HYDROmorphone INJ 1 MG/ML SYRINGE IV PRN (15:02)
[2019-11-16] MEDS ORDERED: DEXAMETHASONE SOD INJ 4 MG/ML VIAL IV PRN (15:02)
[2019-11-16] MEDS ORDERED: ONDANSETRON INJ 2 MG/ML 2 ML VIAL IV PRN (15:02)
[2019-11-16] MEDS ORDERED: MIDAZOLAM HCL 1 MG/ML 2ML VIAL ONE (15:08)
[2019-11-16] MEDS ORDERED: fentaNYL citrate 100 MCG/2 ML VIAL ONE ×2 (15:08→16:12)
[2019-11-16] MEDS ORDERED: ONDANSETRON INJ 2 MG/ML 2 ML VIAL ONE (15:14)
[2019-11-16] MEDS ORDERED: PROPOFOL IV EMULSION 10 MG/ML 20 ML VIAL IV ONE (15:14)
[2019-11-16] MEDS ORDERED: GLYCOPYRROLATE 0.2 MG/ML VIAL ONE (15:14)
[2019-11-16] MEDS ORDERED: METOCLOPRAMIDE HCL INJ 5 MG/ML 2 ML VIAL ONE (15:14)
[2019-11-16] MEDS ORDERED: NEOSTIGMINE METHYLSULFATE 5 MG/5 ML SYR ONE (15:14)
[2019-11-16] MEDS ORDERED: ROCURONIUM BROMID 50MG/5ML SYR ONE (15:14)
[2019-11-16] MEDS ORDERED: HEPARIN (PORCINE) 1000 UNIT/ML 10 ML (CATH LAB USE ONLY) ONE (15:31)
[2019-11-16] MEDS ORDERED: BUPIVACAINE 0.5 % 5 MG/1 ML MPF 30ML VIAL ONE (15:31)
[2019-11-16] MEDS ORDERED: CEFAZOLIN 250 MG/ML 1 GM VIAL ONE ×2 (15:31→15:55)
[2019-11-16] MEDS ORDERED: CONRAY 60% 50 ML VIAL ONE (15:31)
[2019-11-16] MEDS ORDERED: HYDROCORTISONE SOD SUCCINATE 100 MG/2 ML VIAL ONE (16:51)
[2019-11-16] MEDS ORDERED: LABETALOL HCL IV 5 MG/ML 20ML IV PRN (17:11)
--- NOTE | 2019-11-16 17:30 | Post Operative Brief Note ---
Immediate Post Op Note v1 Date of Surgery November 16, 2019 Pre & Post Diagnosis Operation Date: 11/16/19 14:55 Pre-Op Diagnosis: BILIARY COLIC Post-Op Diagnosis: BILIARY COLIC I identified the patient and participated in the time-out.: Yes Procedure Operation Date: 11/16/19 14:55 Actual Procedures p Laparoscopic Cholecystectomy - Woo Chairez MD Surgeon Woo Chairez MD School Teacher None Estimated Blood Loss 5 Findings Consistent with Post-Op Diagnosis Anesthesia Type General Complications none
[2019-11-16] MEDS ORDERED: HYDROmorphone INJ 1 MG/ML SYRINGE ONE (17:31)
--- NOTE | 2019-11-16 17:46 | Hospitalist Progress Note ---
Date of Service November 16, 2019 Assessment & Plan (1) Biliary colic: (2) Abdominal pain, RUQ: per admitting service notes: Pt is 69 y/o F with PMH Graves' disease, SLE on CellCept, GERD, HTN, idiopathic peripheral neuropathy presented to ER with complaint of abdominal pain. Patient reports intermittent abdominal pain x several months. Past 3 days with RUQ pain with radiation to right back and right scapula after eating ribs with associated nausea and dry heaves In ER Vitals stable. WBC: 4.1 US Gallbladder: Gallbladder sludge. No cholelithiasis or biliary ductal dilatation. Findings not overly convincing for cholecystitis. Afebrile Plan for laparoscopic cholecystectomy today No medical contraindication to proceed with surgery, patient low risk for cardiopulmonary complications perioperatively Continue usual prednisone 5 milligrams p.o. daily, will not need stress dose hydrocortisone Hold CellCept, until complete healing of surgical wounds Continue pain control, antiemetics (3) Dizziness: Intermittent dizziness with movement of head and also occurring with increased abdominal pain x 2 days DDX: vertigo CT Head: no acute changes --Denies dizziness (4) Lupus: -Hold CellCept in light of surgery Continue prednisone 5 mg p.o. daily, monitor blood pressure -On Benlysta (had 2 doses so far) (5) Graves disease: -Continue levothyroxine (6) Hypertension: -Continue losartan DVT Prophylaxis -SCDs Full Code as per discussion with pt Follows with Dr Stallings for routine care Disposition Dissipate discharge to home when medically stable, cleared by surgical service Admission and Anticipated Discharge Date Admission Date: November 15, 2019 Subjective Follow-up for right upper quadrant pain, gallbladder sludge Patient was having pain and nausea earlier in the morning On exam, patient seen resting in bed, not in distress States pain medication and antiemetic relieved her symptoms Pain already improving on my exam, denies nausea on my exam Denies chest pain, shortness of breath, palpitations, dizziness No arthralgias Denies other symptoms Review of Systems Review of Systems: All systems reviewed & are unremarkable except as noted in HPI & below Physical Exam Physical Exam: General- oriented x 3, not in distress, speaks in sentences with no effort or accessory muscle use Head- atraumatic Eyes- PERRL, EOMI, anicteric ENT- oropharynx clear Neck- supple, no JVD, no adenopathy, no thyromegaly; carotids +2/2, no bruits appreciated Lungs- clear to auscultation bilaterally, no rales/wheezes Heart- normal rate, regular rhythm; no murmur, no gallop, no rub appreciated Abdomen- normal bowel sounds, nondistended, soft, positive moderate tenderness in all quadrants, no masses or hepatosplenomegaly Extremities- no pretibial edema, no calf tenderness; peripheral pulses intact Neuro- alert, oriented x 3; CN 2-12 grossly intact; motor 5/5 bilaterally;sensation 100% on all extremities; no other gross focal neurologic deficits Skin- warm & dry Results & Data ([facility]) Vital Signs (Past 12 Hours) Vital Signs Temp Pulse Pulse Pulse Resp BP Pulse Ox 11/16/19 17:35 75 18 150/77 H 99 11/16/19 17:25 70 18 154/75 H 100 11/16/19 17:15 71 18 149/82 H 100 11/16/19 17:08 36.6 C 74 16 177/89 H 100 11/16/19 15:13 75 11/16/19 15:05 36.9 C 77 18 145/78 H 100 11/16/19 11:13 37.0 C 75 18 139/75 98 11/16/19 07:12 37.2 C 72 18 125/71 97 11/16/19 07:06 82 Laboratory Results Laboratory Results - last 24 hr 11/16/19 11/16/19 07:37 07:37 WBC 2.09 L RBC 3.39 L Hgb 10.0 L Hct 31.1 L MCV 91.7 MCH 29.5 MCHC 32.2 RDW Std Deviation 47.6 H RDW Coeff of Bonnie 14.1 Plt Count 155 MPV 9.6 Sodium 140 Potassium 3.4 L Chloride 109 H Carbon Dioxide 24 Anion Gap 7.0 BUN 13 Creatinine 0.62 Est Cr Clr Drug Dosing 81.7 Est GFR ( Amer) 106.6 Est GFR (Non-Af Amer) 92.0 BUN/Creatinine Ratio 21.2 H Glucose 88 Calcium 8.5 Total Bilirubin 0.3 AST 22 ALT 15 Alkaline Phosphatase 86 Total Protein 6.7 Albumin 2.8 L Globulin 3.9 Albumin/Globulin Ratio 0.7 L
--- NOTE | 2019-11-16 19:07 | Operative Report ---
DATE OF OPERATION: 11/15/2019 PREOPERATIVE DIAGNOSES: Chronic cholecystitis, possible acute cholecystitis. POSTOPERATIVE DIAGNOSES: Chronic cholecystitis, possible acute cholecystitis. PROCEDURE: Laparoscopic cholecystectomy. SURGEON: Woo Chairez MD. FINDINGS: Upon entering the abdomen, the liver was seen anteriorly to be adherent to the anterior abdominal wall. There was no fluid or abscess identified. The gallbladder was tethered up along the liver. The gallbladder was thickened. There were no stones within it. The duodenum was adherent to the liver and to the gallbladder. The wall of the duodenum appeared normal, however. There was no evidence of perforation. There was no free fluid in the abdomen. The transverse colon was well seen in the proximal portion and it too appeared normal. TECHNIQUE: The patient was given a general anesthetic and the area was prepped and draped in the usual sterile fashion. The skin inferior to the umbilicus was anesthetized with 0.5% Marcaine without epinephrine. Skin incision was made and was carried down through the subcutaneous tissue to the fascia, which was grasped with 2 Kirill clamps and incised between. The peritoneum was identified, incised, and the introducer was placed bluntly. The abdomen was then insufflated to a pressure of 15 mmHg with carbon dioxide. The upper midline, midclavicular and anterior axillary introducer sites were chosen and the skin, subcutaneous tissue, fascia and peritoneum were anesthetized with 0.5% Marcaine. Skin incisions were made and the introducers were placed under direct vision. The liver was seen adherent to the anterior abdominal wall. Some of this adhesion was bluntly taken down with pressure, but there were some other adhesions that had to be divided using electrocautery. There was adhesion to the undersurface of the omentum; this was taken down using blunt cautery dissection where appropriate. The duodenum was then identified. The adhesions of the duodenum to the gallbladder into the liver were taken down using only blunt dissection. No cautery was used. This freed the infundibulum and neck of the gallbladder. I was then able to place upward traction on the gallbladder beginning on the lateral aspect of the infundibulum. The peritoneum was opened and peeled down towards the common bile duct. This dissection was then carried over the anterior surface of the gallbladder and into near the triangle of Calot. The cystic artery was then seen extending on the anterior surface and draped over the anterior surface of the gallbladder. This was isolated in 360 degrees. Further dissection was then carried out posterior to that. The infundibulum was away from the liver on the lateral and medial side. Further dissection of lymphatics and thickened connective tissue was performed. This was all taken down using blunt cautery dissection until I could identify the cystic duct. The cystic duct was elevated and posterior dissection was performed until I had a good window and I was able to confidently identify the cystic duct-gallbladder junction. Two clips were then placed on the proximal cystic artery and one on the distal and it was divided. I then put 2 clips on the proximal cystic duct, one near the junction with the gallbladder and divided. I was then able to dissect the gallbladder off the liver using electrocautery. It was placed into an Endobag and brought out through the upper midline incision. Then, the introducer was replaced. All of the area of dissection of the liver off the anterior abdominal wall was inspected. There was no bleeding or bile leak. The gallbladder bed of the liver was inspected and there was no bleeding. The subdiaphragmatic and subhepatic spaces were irrigated and the irrigation was removed. It was repeated until the return was clear. The gas was allowed to escape and the introducers were removed. The fascia of the umbilical and upper midline introducer sites was closed with interrupted 0 Vicryl and skin of all the incisions was closed with 4-0 Monocryl in either an interrupted or running subcuticular fashion. Skin was further anesthetized with 0.5% Marcaine. The skin was cleansed, dried, benzoin placed, Steri-Strips applied. Estimated blood loss was 5 mL. Sponge, needle and instrument counts were correct prior to closure. The patient tolerated the surgical procedure without complication and was transferred to recovery. I attest to the content of the Intraoperative Record and any orders documented therein. Any exception s are noted below.
--- NOTE | 2019-11-16 19:21 | Post Operative Brief Note ---
Immediate Post Op Note v1 Date of Surgery November 16, 2019 Pre & Post Diagnosis Operation Date: 11/16/19 14:55 Pre-Op Diagnosis: BILIARY COLIC Post-Op Diagnosis: BILIARY COLIC I identified the patient and participated in the time-out.: Yes Procedure Operation Date: 11/16/19 14:55 Actual Procedures p Laparoscopic Cholecystectomy - Woo Chairez MD Surgeon Woo Chairez MD Psychology Fellow None Estimated Blood Loss 5 Findings Consistent with Post-Op Diagnosis Specimens Gallbladder and contents Anesthesia Type General Complications none
[2019-11-16] MEDS: LOSARTAN POTASSIUM 25 MG TAB PO SCH (20:10)
[2019-11-16] MEDS: POTASSIUM CHLORIDE 10 MEQ TABCR PO SCH (20:11)
[2019-11-16] MEDS: MoRPHine SULFATE 2 MG/ML CARP IV PRN ×2 (21:10→23:36)
[2019-11-17] MEDS: MoRPHine SULFATE 2 MG/ML CARP IV PRN (03:11)
[2019-11-17] MEDS: LEVOTHYROXINE SODIUM 75 MCG TABLET PO SCH (05:47)
[2019-11-17] MEDS: ONDANSETRON INJ 2 MG/ML 2 ML VIAL IV PRN ×3 (07:19→18:17)
--- NOTE | 2019-11-17 09:43 | Surgery Progress Note ---
Date of Service November 17, 2019 Assessment & Plan (1) Biliary colic: Postoperative day #1 status post laparoscopic cholecystectomy Hemodynamically stable Appetite has not returned and is only taking clear liquids but no nausea We will continue to follow through the day If appetite improves and she is feeling better can discharge later this afternoon Otherwise we will need to keep overnight 1 more night Subjective Postoperative day #1 status post laparoscopic cholecystectomy Preoperative pain is resolved Having only mild surgical discomfort Denies nausea and vomiting but appetite has not returned to normal Tolerating clear liquids but did not want anything additional Physical Exam Gastrointestinal (Abdomen): Inspection/Auscultation: normal bowel sounds; abdomen not distended Percussion/Palpation: + abdomen tender (Mild right upper quadrant and incisional only) and abdomen soft Results & Data Vital Signs (Past 12 Hours) Vital Signs Temp Pulse Resp BP Pulse Ox 11/17/19 07:55 37.0 C 95 H 18 153/78 H 99 11/17/19 03:24 139/73 11/17/19 03:05 37 C 95 H 16 179/90 H 95 11/16/19 23:46 37.1 C 87 16 146/77 H 96 11/16/19 22:46 36.7 C 81 18 162/85 H 93
[2019-11-17] MEDS: predniSONE 5 MG TAB PO SCH (10:07)
[2019-11-17] MEDS: MYCOPHENOLATE MOFETIL 250 MG CAP PO SCH (10:07)
[2019-11-17] MEDS: ACETAMINOPHEN 325 MG TAB PO PRN ×2 (11:02→19:11)
--- NOTE | 2019-11-17 14:28 | Hospitalist Progress Note ---
Date of Service November 17, 2019 Assessment & Plan (1) Biliary colic: (2) Abdominal pain, RUQ: per admitting service notes: Pt is 69 y/o F with PMH Graves' disease, SLE on CellCept, GERD, HTN, idiopathic peripheral neuropathy presented to ER with complaint of abdominal pain. Patient reports intermittent abdominal pain x several months. Past 3 days with RUQ pain with radiation to right back and right scapula after eating ribs with associated nausea and dry heaves In ER Vitals stable. WBC: 4.1 US Gallbladder: Gallbladder sludge. No cholelithiasis or biliary ductal dilatation. Findings not overly convincing for cholecystitis. S/P lap chadwick stable overall Continue usual prednisone 5 milligrams p.o. daily, does not need stress dose hydrocortisone Hold CellCept, until complete healing of surgical wounds Continue pain control, antiemetics advance diet per Gen Surg (3) Dizziness: Intermittent dizziness with movement of head and also occurring with increased abdominal pain x 2 days DDX: vertigo CT Head: no acute changes --Denies dizziness (4) Lupus: -Hold CellCept in light of surgery Continue prednisone 5 mg p.o. daily, monitor blood pressure -On Benlysta (had 2 doses so far) (5) Graves disease: -Continue levothyroxine (6) Hypertension: -Continue losartan DVT Prophylaxis -SCDs encouraged to ambulate frequently Full Code as per discussion with pt Follows with Dr Stallings for routine care Disposition Anticipate discharge to home when medically stable, cleared by surgical service Admission and Anticipated Discharge Date Admission Date: November 15, 2019 Subjective ff up for s/p cholecystectomy seen resting in bed, comfortable states she feels improved today minimal pain on the RUQ tolerating clear liquids, (+) flatus, no BM yet no fever/chills, arthralgias no other symptoms Review of Systems Review of Systems: All systems reviewed & are unremarkable except as noted in HPI & below Physical Exam Physical Exam: General- oriented x 3, not in distress, speaks in sentences with no effort or accessory muscle use Eyes- anicteric Neck- no JVD Lungs- clear breath sounds bilaterally, no rales/wheezes Heart- normal rate, regular rhythm; no murmurs Abdomen- normal bowel sounds, nondistended, soft, lap chadwick sites: no bleeding, discharge; nontender Extremities- no pretibial edema, no calf tenderness Neuro- alert, oriented x 3; no gross focal neurologic deficits Skin- warm & dry Results & Data ([facility]) Vital Signs (Past 12 Hours) Vital Signs Temp Pulse Resp BP Pulse Ox 11/17/19 07:55 37.0 C 95 H 18 153/78 H 99 11/17/19 03:24 139/73 11/17/19 03:05 37 C 95 H 16 179/90 H 95 Laboratory Results Laboratory Results - last 24 hr 11/17/19 14:29 Sodium 134 L Potassium 3.0 L Chloride 103 Carbon Dioxide 27 Anion Gap 4.0 BUN 9 Creatinine 0.68 Est Cr Clr Drug Dosing 74.5 Est GFR ( Amer) 103.4 Est GFR (Non-Af Amer) 89.2 BUN/Creatinine Ratio 13.4 Glucose 116 H Calcium 8.1 L
[2019-11-17 15:05] LABS: BUN Creatinine Ratio 13.4 (10-20); Calcium 8.1 mg/dl (8.5-10.1); Creatinine Clr Calc Pharmacy 74.5 ml/min; Est GFR (African American) 103.4; Est GFR (Non-African American) 89.2
[2019-11-17] MEDS ORDERED: POTASSIUM CHLORIDE 20 MEQ TABCR PO STA (17:31)
[2019-11-17] MEDS: POTASSIUM CHLORIDE / WTR 10 MEQ/100 ML PLCT IV SCH ×2 (18:06→19:50)
[2019-11-17] MEDS: POTASSIUM CHLORIDE 10 MEQ TABCR PO SCH (20:02)
[2019-11-17] MEDS: LOSARTAN POTASSIUM 25 MG TAB PO SCH (20:02)
[2019-11-18] MEDS: ACETAMINOPHEN 325 MG TAB PO PRN ×2 (04:23→11:34)
[2019-11-18] MEDS: LEVOTHYROXINE SODIUM 75 MCG TABLET PO SCH (05:49)
[2019-11-18 05:58] LABS: Eosinophils # (auto) 0.01 K/uL (0-0.5); Eosinophils % (auto) 0.4 %; Hematocrit (blood only) 32.3 % (37-47); Hemoglobin 10.5 g/dL (12.0-16.0); Immature Granulocytes # (auto) 0.02 K/uL (0.00-0.02); Immature Granulocytes % (auto) 0.8 %; Lymphocytes # (auto) 0.22 K/uL (1.2-3.4); Lymphocytes % (auto) 9.1 %; Mean Corpuscular Hemoglobin 29.7 pg (25-34); Mean Corpuscular Hgb Conc 32.5 g/dL (32-36); Mean Corpuscular Volume 91.2 fL (80-100); Mean Platelet Volume 9.6 fL (7.4-10.4); Monocytes % (auto) 8.3 %; Neutrophils # (auto) 1.97 K/uL (1.4-6.5); Neutrophils % (auto) 81.4 %; Platelet Count 137 K/uL (130-400); RDW Coefficient of Variation 13.8 % (11.5-14.5); RDW Standard Deviation 46.3 fL (36.4-46.3); Red Blood Count 3.54 M/uL (4.2-5.4); White Blood Count 2.42 K/uL (4.8-10.8)
[2019-11-18 06:27] LABS: BUN Creatinine Ratio 13.8 (10-20); Calcium 8.8 mg/dl (8.5-10.1); Creatinine Clr Calc Pharmacy 85.9 ml/min; Est GFR (African American) 108.4; Est GFR (Non-African American) 93.5
--- NOTE | 2019-11-18 08:34 | Anesthesiology Progress Note ---
Date of Service November 18, 2019 Anesthesia Post Procedure Vital Signs Vital Signs: Temp Pulse Resp BP BP Pulse Ox 11/18/19 07:31 36.8 C 80 16 156/80 H 97 11/17/19 23:35 36.5 C 73 16 149/79 H 98 11/17/19 20:03 84 127/73 11/17/19 15:37 36.5 C 80 20 136/76 97 Pain Intensity Bilateral Upper Abdomen: Pain Intensity: 5 Notes Mental Status: alert / awake / arousable and participated in evaluation Patient Amnestic to Procedure: Yes Nausea / Vomiting: adequately controlled Pain: adequately controlled Airway Patency, RR, SpO2: stable & adequate BP & HR: stable & adequate Hydration State: stable & adequate Anesthetic Complications: no major complications apparent and Pt Satisfied with anesthetic care
[2019-11-18] MEDS: predniSONE 5 MG TAB PO SCH (08:59)
--- NOTE | 2019-11-18 14:48 | Surgery Progress Note ---
Date of Service November 18, 2019 Assessment & Plan (1) Biliary colic: Postoperative day #2 status post laparoscopic cholecystectomy Hemodynamically stable nausea resolved, appetite improved no leukocytosis pain controlled Plan: okay from surgical standpoint for discharge discharge instructions reviewed f/u surgical office in 2 weeks no need for antibiotics Tylenol prn pain Discussed with Dr. Chairez who agrees with above Subjective feeling much better today nausea has resolved, no vomiting tolerated regular diet for lunch incontinent with liquid stool this morning incisional pain controlled with Tylenol ready to go home Physical Exam Constitutional: WD/WN, vitals as above no acute distress Respiratory: normal respiratory effort; no respiratory distress Gastrointestinal (Abdomen): Inspection/Auscultation: abdomen not distended Percussion/Palpation: + abdomen tender (mild at incision sites) and abdomen soft; no guarding and abdomen not rigid Skin: no rashes, warm and dry + incision (steri strips presents, dressing at umbilical incision) Psychiatric: A+Ox3, euthymic affect Results & Data Vital Signs (Past 12 Hours) Vital Signs Temp Pulse Resp BP Pulse Ox 11/18/19 07:31 36.8 C 80 16 156/80 H 97 Laboratory Results 11/18/19 11/18/19 11/17/19 Range/Units 05:26 05:26 14:29 WBC 2.42 L (4.8-10.8) K/uL RBC 3.54 L (4.2-5.4) M/uL Hgb 10.5 L (12.0-16.0) g/dL Hct 32.3 L (37-47) % MCV 91.2 (80-100) fL MCH 29.7 (25-34) pg MCHC 32.5 (32-36) g/dL RDW Std Deviation 46.3 (36.4-46.3) fL RDW Coeff of Bonnie 13.8 (11.5-14.5) % Plt Count 137 (130-400) K/uL MPV 9.6 (7.4-10.4) fL Immature Gran % (Auto) 0.8 % Neut % (Auto) 81.4 % Lymph % (Auto) 9.1 % [place] % (Auto) 8.3 % Eos % (Auto) 0.4 % Baso % (Auto) 0.0 % Immature Gran # (Auto) 0.02 (0.00-0.02) K/uL Neut # (Auto) 1.97 (1.4-6.5) K/uL Lymph # (Auto) 0.22 L (1.2-3.4) K/uL [place] # (Auto) 0.20 (0.11-0.59) K/uL Eos # (Auto) 0.01 (0-0.5) K/uL Baso # (Auto) 0.00 (0-0.2) K/uL Sodium 141 D 134 L (136-145) mmol/L Potassium 4.0 D 3.0 L (3.5-5.1) mmol/L Chloride 110 H 103 (98-107) mmol/L Carbon Dioxide 27 27 (21-32) mmol/L Anion Gap 4.0 4.0 (3-11) BUN 8 9 (7-18) mg/dl Creatinine 0.59 L 0.68 (0.6-1.2) mg/dl Est Cr Clr Drug Dosing 85.9 74.5 ml/min Est GFR ( Amer) 108.4 103.4 Est GFR (Non-Af Amer) 93.5 89.2 BUN/Creatinine Ratio 13.8 13.4 (10-20) Glucose 91 116 H (70-99) mg/dl Calcium 8.8 8.1 L (8.5-10.1) mg/dl
== END 2019-11-18 17:07 | disposition home or self-care (01) | DRG 418 ==
LOC: ED 12:24 → 2W 15:20 → SUATTDRO 15:20 → 2W 16:33 → 3W 11-16 17:30